=== PATIENT | male | born 1960 | race Caucasian/White ===

== ENCOUNTER → 2016-06-20 | Outpatient (REF) | payer OTHER ==
[2016-06-20 13:48] LABS: TOTAL PROTEIN 7.8 GM/DL (6.4-8.2)
[2016-06-24 10:40] LABS: ALBUMIN % 61.5 % (55.8-66.1)
== END ==
LOC: M LAB REF 13:17
DX: M06.9 Rheumatoid arthritis, unspecified (principal)

== ENCOUNTER → 2016-08-31 | Outpatient (REF) | payer OTHER | LOC: M LAB REF 17:54 | PROVIDERS: ATTEND Physician Assistant | DX: J02.9 Acute pharyngitis, unspecified (principal) ==

== ENCOUNTER 2017-08-14 06:29 | Day surgery (SDC) | payer OTHER ==
[2017-08-14] MEDS: NS 1,000 ML IV (06:45)
[2017-08-14] MEDS ORDERED: PROPOFOL 200 MG/20 ML VIAL As Ordered ×2 (07:32→07:46)
== END 2017-08-14 08:32 | disposition home or self-care (01) ==
LOC: M OPP 06:29
DX: Z09 Encounter for follow-up examination after completed treatment for conditions other than malignant neoplasm (principal); D49.0 Neoplasm of unspecified behavior of digestive system; Z86.010 Personal history of colon polyps; D12.5 Benign neoplasm of sigmoid colon; D12.3 Benign neoplasm of transverse colon; K64.0 First degree hemorrhoids; K57.30 Diverticulosis of large intestine without perforation or abscess without bleeding; M06.9 Rheumatoid arthritis, unspecified; L80 Vitiligo; F17.210 Nicotine dependence, cigarettes, uncomplicated; Z79.899 Other long term (current) drug therapy
CPT/HCPCS: 45385

== ENCOUNTER → 2018-10-10 | Outpatient (CLI) | payer OTHER ==
[~2018-10-10] MED LIST: OREN125I2
--- NOTE | 2018-10-11 07:55 | REP ---
ABDOMINAL SERIES: Supine and erect views of the abdomen demonstrate no free air and no evidence for small bowel obstruction. No dilated small bowel loops are seen. There is scattered air and fecal material throughout the colon. Phleboliths are seen in the pelvis. An accompanying view of the chest demonstrates scattered fibrotic changes which appear stable compared to prior chest radiograph 02/12/2010. No acute infiltrate is seen. The heart is normal in size. There is some tortuosity of the thoracic aorta. The mediastinal silhouette is unchanged. IMPRESSION: No free air or obstruction. Stable chronic changes of the lungs with no acute pulmonary disease. Electronically Signed by Andrés Cantu MD 10/11/2018 04:27 P
== END ==
LOC: M WUC 17:23
PROVIDERS: ATTEND Physician Assistant
DX: R10.84 Generalized abdominal pain (principal)

== ENCOUNTER → 2018-10-11 | Outpatient (CLI) | payer OTHER ==
[2018-10-11 12:55] LABS: BASO # 0.1 10^3/uL (0.0-0.2); BASO % 0.4 % (0.0-1.0); EOS # 0.2 10^3/uL (0.0-0.50); EOS % 1.5 % (0.0-3.0); HEMATOCRIT 36.2 % (42.0-52.0); HEMOGLOBIN 11.8 g/dl (13.5-17.5); LYMPH # 1.5 10^3/uL (1.5-4.5); LYMPH % 12.1 % (24.0-44.0); MEAN CORPUSCULAR HEMOGLOBIN 29.9 pg (27.0-33.0); MEAN CORPUSCULAR HGB CONC 32.6 g/dl (32.0-36.5); MEAN CORPUSCULAR VOLUME 91.6 fl (80.0-96.0); MONO # 1.6 10^3/uL (0.0-0.8); NEUTROPHILS # 8.9 10^3/uL (1.8-7.7); NEUTROPHILS % 72.7 % (36.0-66.0); PLATELET COUNT, AUTOMATED 198 10^3/uL (150-450); RED BLOOD COUNT 3.95 10^6/uL (4.30-6.10); WHITE BLOOD COUNT 12.3 10^3/uL (4.0-10.0)
[2018-10-11 13:22] LABS: ALBUMIN 3.4 GM/DL (3.2-5.2); ALT/SGPT 42 U/L (12-78); AMYLASE 31 U/L (25-115); BILIRUBIN,TOTAL 0.5 MG/DL (0.2-1.0); BLOOD UREA NITROGEN 9 MG/DL (7-18); CALCIUM LEVEL 8.4 MG/DL (8.5-10.1); CARBON DIOXIDE LEVEL 25 MEQ/L (21-32); CHLORIDE LEVEL 109 MEQ/L (98-107); CREATININE FOR GFR 0.87 MG/DL (0.70-1.30); GLOMERULAR FILTRATION RATE > 60.0 (>56); GLUCOSE, FASTING 79 MG/DL (70-100); LIPASE 157 U/L (73-393); POTASSIUM SERUM 4.2 MEQ/L (3.5-5.1); SODIUM LEVEL 140 MEQ/L (136-145)
[2018-10-11 13:31] LABS: ERYTHROCYTE SEDIMENTATION RATE 46 mm/hr (0-20)
== END ==
LOC: M WUC 11:12
PROVIDERS: ATTEND Physician Assistant
DX: R10.84 Generalized abdominal pain (principal)

== ENCOUNTER → 2018-10-12 | Outpatient (CLI) | payer OTHER ==
[~2018-10-12] MED LIST changes: +GASTROGRAFIN SOLUTION 30ML (Q9963) As Ordered ONE; +ISOVUE-370 76% 100ML VIAL (Q9967) As Ordered ONE
--- NOTE | 2018-10-12 17:20 | REP ---
CT ABDOMEN AND PELVIS WITH ORAL AND IV CONTRAST, CT ABDOMEN WITHOUT IV CONTRAST: TECHNIQUE: Axial noncontrast images through the abdomen followed by contrast-enhanced images through the abdomen and pelvis using 100 mL Isovue 370 intravenous contrast material, with coronal and sagittal reformations. In the visualized lung bases are multiple small nodules present, more so on the right than on the left. The largest is in the posterior costophrenic sulcus in the right lower lobe measuring 9 mm in diameter. Recommend CT of the chest to fully evaluate both lungs. No liver mass is seen. The spleen is normal in size with no intrinsic abnormality. No adrenal mass is seen. Pancreas demonstrates no mass. Left kidney is unremarkable. There is a huge lobulated irregular mass which demonstrates heterogenous enhancement involving the medial aspect of the right kidney. This encases the right renal artery. The renal artery is narrowed. There appears to be invasion of the right renal vein and likely of the inferior vena cava at that level. Approximate measurements of the mass are 12.8 x 10.3 x 9.6 cm. Multiple satellite nodules are seen in the perirenal fascia. A nodule posterior to the lower pole of the right kidney measures 2.4 cm in diameter. A satellite nodule just above the right kidney adjacent to the mass measures 1.9 cm in diameter. A nodule posterior to the mid aspect of the right kidney measures 1.7 cm. Streaky infiltrative density is seen on the surrounding fat. Collateral vascular structures are seen extending inferior to the right kidney. I suspect the inferior vena cava is obstructed at this level. There appears to be collateral venous drainage through the left retroperitoneum. There is moderate right hydronephrosis. There is no abdominal aortic aneurysm. There is mild free fluid in the pelvis. I see no free air. No bowel wall thickening is seen. There is no evidence of appendicitis. No pelvis mass is seen. Urinary bladder is grossly unremarkable. There is sigmoid diverticulosis noted. There are small inguinal hernias containing fat. Small sclerotic densities in proximal femurs and pelvic bones likely represent benign bone islands. However there is a large mass involving the left 10th rib consistent with a metastatic lesion measuring 4.1 x 7.4 cm. In addition there is a metastatic lesion in the T2 vertebral body. IMPRESSION: Huge right renal mass, involving the medial aspect of the upper and lower poles of the right kidney encasing the right renal artery and apparently invading the right renal vein. There also appears to be invasion of the inferior vena cava at that level. Multiple satellite nodules in the perirenal fascia. Moderate right hydronephrosis. Multiple pulmonary nodules in the visualized lungs most consistent with metastatic lesions. Recommend CT of the chest to fully evaluate both lungs. Large metastatic lesion posterior left 10th rib. There is also a metastatic lesion involving T12 vertebral body. Small amount of free fluid in the pelvis. Electronically Signed by Andrés Cantu MD 10/13/2018 03:33 P
== END ==
LOC: M RAD 13:54
PROVIDERS: ATTEND Physician Assistant
DX: N28.89 Other specified disorders of kidney and ureter (principal); R91.8 Other nonspecific abnormal finding of lung field; C79.51 Secondary malignant neoplasm of bone
CPT/HCPCS: 74178; Q9963; Q9967

== ENCOUNTER → 2018-11-26 | Outpatient (CLI) | payer OTHER ==
[~2018-11-26] MED LIST changes: +CABO60TA PO; +DECA4TAB PO; -GASTROGRAFIN SOLUTION 30ML (Q9963) As Ordered ONE; +HYDR-4514 PO; +HYDR-4517 PO; -ISOVUE-370 76% 100ML VIAL (Q9967) As Ordered ONE; +OXYC-517 PO; +VICO5TAB17 PO
--- NOTE | 2018-11-26 17:40 | REP ---
MRI lumbar spine without and with IV gadolinium: History: Metastatic renal cell carcinoma with bone metastasis. Comparison is made with CT study from October 12, 2018 showing a metastatic lesion in the T12 vertebral body. Technique: Sagittal and axial T1 and T2-weighted scans are acquired in the usual fashion with and without fat saturation. Sequences include spin echo, turbo spin-echo, and STIR imaging sequences. Gadolinium enhancement dose is 14 ml of intravenous ProHance. MRI findings: There is a large metastatic lesion in the in the T12 vertebral body occupying all of the anterior vertebral body. There is anterior and posterior extra osseous extension. The posterior disease extends into the epidural space encroaching on the thecal sac. The mid AP dimension of the thecal sac at this level is 10 mm. No cord compression is seen but there is mild central canal stenosis. There is mild wedging at the T12 vertebral body with loss of anterior height approximately 25%. There is a fracture line on the left posterior aspect of the vertebral body near the junction with the pedicle. No lumbar bony metastasis is appreciated. The visualized upper sacrum appears intact. There is some reactive marrow edema at the inferior endplate of L5 associated with a degenerated L5-S1 disc. Mild disc bulging is seen at L5-S1. No spinal stenosis or neural foraminal narrowing. There is mild degeneration the L4-5 disc with diffuse disc bulging and mild facet hypertrophy. No lumbar disc protrusion is seen. The tip of the conus medullaris is normal in position and appearance at L1-L2. The known large right renal mass with a perinephric fat extension is noted incidentally. Postcontrast images demonstrate enhancement within the T12 metastasis. The metastasis is more extensive and the wedging is more pronounced than it was at the time of the CT study October 12, 2018. Impression: Large metastasis at the T12 with pathologic partial collapse, 25%. There is retropulsion and epidural extension producing mild central canal stenosis. No cord compression at this point but there is central canal stenosis. T12 metastasis shows some progression in size since October 12, 2018. Electronically Signed by Prakash Garibay MD 11/26/2018 05:46 P
--- NOTE | 2018-11-26 17:42 | REP ---
MRI thoracic spine without contrast: History: Metastatic renal cell carcinoma. Bone metastasis. Comparison CT study October 12, 2018. Technique: Sagittal and axial T1 and T2-weighted scans are acquired in the usual fashion with and without fat saturation. Sequences include spin echo, turbo spin-echo, and STIR imaging sequences. Gadolinium enhancement dose is 14 ml of intravenous ProHance. MRI findings: There is a large metastasis in the T12 vertebral body with retropulsion and central canal stenosis with epidural extension. This was described in detail on the lumbar spine study. Thoracic vertebral body heights are otherwise preserved. There are lesions in the T1 and T3 vertebral bodies, which are felt to be consistent with hemangiomas being T1 hyperintense and T2 hyperintense. There is also evidence of a hemangioma in the left side of the T6 vertebral body. There is suspicious enhancement at the base of the spinous process at T2 consistent with a metastasis. There is a small lesion in the left lamina at T7. There is another small presumed metastatic focus in the left pedicle at T9. This lesion showed decreased T1 signal. There is a large rib lesion on the left posteriorly at what appears to be T9. This is seen on CT. There are multiple pulmonary nodules noted incidentally in the lung little consistent with pulmonary metastases. No thoracic spinal cord compression is appreciated. There is central canal stenosis at T12 as described in the lumbar spine report. Impression: Thoracic multifocal metastatic disease. The largest of these is at T12 where there is central canal stenosis and partial pathologic collapse of the T12 vertebral body. Electronically Signed by Prakash Garibay MD 11/26/2018 05:46 P
== END ==
LOC: M PLARAD 14:50
PROVIDERS: ATTEND Internal Medicine Medical Oncology
DX: C79.89 Secondary malignant neoplasm of other specified sites (principal); R91.8 Other nonspecific abnormal finding of lung field

== ENCOUNTER → 2018-11-30 | Outpatient (CLI) | payer OTHER ==
--- NOTE | 2018-12-01 08:43 | RADONC ---
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 There was evidence of inferior vena cava involvement as well as renal vein and renal artery. The patient is symptomatic with regards to bone metastasis with a precarious lesion at the level of T12. STAGE: IV, [id number]. ICD-10 CODE: 79.51, 78.0 and C64.9. ECOG PERFORMANCE STATUS: 0. HISTORY OF THE PRESENT ILLNESS: The patient is a 58-year-old male who has a history of rheumatoid arthritis. He had been doing quite well until of last year when he noted the fairly sudden onset of back pain. He went to the urgent care center close to him for a prescription of muscle relaxants which helped the situation significantly. However, he noted that in August he again developed pain in his back. This was associated with at least a 20 pounds weight loss over the last year and more recently a fairly rapid [address] scan was obtained of the abdomen and pelvis and a renal mass was seen encasing the right renal artery and invading the right renal artery and right renal vein and possibly invading the inferior vena cava. Some small multiple satellite lesions were seen in the perirenal area measuring up to 1.9 cm. There was also a moderate amount of right hydronephrosis and multiple subcentimeter pulmonary nodules bilaterally. A large lesion was noted in the right 10th rib as well as the T12 area. The patient decided to go to [facility] and he saw Dr. Carlos Bruno and Dr. Hermes Bacon at that institution. It was determined that he was not a surgical candidate for cytoreductive surgery but a biopsy did reveal a renal cell carcinoma. A biopsy was performed on October [address] scan had indeed confirmed a 10.6 x 7.2 cm right renal mass invading the arterial and venous structures and a necrotic mass, possibly an adrenal mass which was necrotic and measured 8.4 x 5.5 cm. Bilateral pulmonary metastatic lesions were noted. A bone scan was performed on 11/10/2018 which confirmed the left 10th rib destructive process as well as metastasis to T12. A testicular ultrasound was negative and an MRI scan of the brain was obtained which was also negative. Dr. Bruno recommended that the patient received a TKI (tyrosine kinase inhibitor) in the form of cabozantinib. The patient has actually started on this medication as well as some pain medications and has seen Dr. Alesha Wilson at this institution who will be orchestrating his medical oncology care. He comes to us today to discuss the possibility of radiation therapy to a precarious lesion at the T12 vertebral body. The lesion is not only causing him a significant amount of pain which he rates at a 7/10 but also shows evidence of invasion into the spinal canal but no definitive evidence of spinal cord compression at this point. There is approximately a 25% loss of height of that vertebral body secondary to bony destruction and he comes to us today to discuss local regional radiotherapy given to the spinal lesion to inez any potential for spinal cord compression in the future. PAST MEDICAL HEALTH: The patient has a long history of rheumatoid arthritis and has been treated on an immunologic modifier. He was on abatacept which was held since October but the patient plans to go back on this medication shortly. He also has a history of GI polyps. PAST SURGICAL HEALTH: Tonsillectomy and a cyst removed, right renal biopsy see HPI. 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 He lives with this . Smoking history - He is a smoker of one half pack per day for many years and he overall has a 25-year pack history of smoking cigarettes. Drinking occasional. FAMILY HISTORY OF CANCER: His father had lung cancer at the age of 44 apparently this was a mesothelioma. His mother had breast cancer at the age of 71 and he has a maternal aunt with a meningioma diagnosed in her 60s. REVIEW OF SYSTEMS: Constitutional: The patient denies any easy bruising or lymphadenopathy. He does have some fatigue and generalized pain from his rheumatoid arthritis. Allergic immunologic: Denies any allergies or adverse reactions. Head: Denies any alopecia. ENT: Denies dysphagia, ear pain, epistaxis, esophagitis, dryness of his mouth, sputum production, sinusitis, stomatitis, altered taste. Breasts: Denies breast masses, nipple discharge, nipple inversion or pain. Cardiovascular: Denies arrhythmias, chest pain, dyspnea, edema, orthopnea, palpitations. Respiratory: Denies coughing, dyspnea, hemoptysis, hiccups, pleuritic pain with the exception of left-sided rib pain and he has overall right flank pain secondary to his tumor. Gastrointestinal: Denies nausea, vomiting, diarrhea, constipation, hematemesis, hematochezia, hemorrhoids, melena, nausea, easy satiety / early satiety or vomiting. Genitourinary: He has pain in the right flank consistent with his tumor but denies dysuria, frequency, hematuria, impotence, incontinence, nocturia, urgency or changes in urine color. Musculoskeletal: He has joint pain, bone pain secondary to arthritis but denies decreased range of motion or muscle weakness. Neurologic: Denies disorientation dizziness, gait issues, headaches, insomnia memory loss, neuropathy, paralysis, seizure, sensory problems or stroke. Psychiatric: Denies delusions, hallucinations, mood swings, depression. Hematology: Denies easy bruising or lymphadenopathy. PHYSICAL EXAMINATION: VITAL SIGNS: Weight 162.14, temperature 98.4, pulse 89, respirations 18, blood pressure systolic 151, diastolic 90, O2 saturation 98%. HEENT: Normocephalic. EOMs intact. PERRLA. Fundi benign. LYMPHATICS: No palpable peripheral lymphadenopathy is appreciated in the cervical, supraclavicular, axillary or inguinal lymph node chains. LUNGS: Clear to auscultation and percussion. HEART: Regular without murmurs. ABDOMEN: Without evidence of hepatomegaly, masses, deep abdominal tenderness. There is a mass noted in his back with some irregularity of the spine in the lower thoracic area as well as some swelling involving the left rib. These are consistent with his known areas of tumor metastasis to bone. EXTREMITIES: Without cyanosis, clubbing or edema. NEUROLOGIC: Examination grossly physiologic and nonfocal. IMPRESSION: Renal cell carcinoma, right, status post biopsy. There was evidence of renal vein and renal artery involvement and as well as possible involvement of the right adrenal and right IVC. Multiple perirenal nodules were noted some as large as 1.9 cm. The patient has evidence of metastatic disease to the bone and to bilateral lungs. Stage T3c,NX,M1 (lung and bone), group stage IV. PLAN OF RADIOTHERAPY: As the patient has what appears to be a very precarious lesion at the level of T12 with 25% loss of vertebral height in that area and involvement of the central canal he is at potential risk for having a spinal cord compression in the future. To inez any potential risk we would recommend a course of local regional radiotherapy directed to the area of the lower thoracic and upper lumbar spine. Total dose of approximately 3000 cGy will be administered at conventional fractionation. Prior to treatment delivery localization will be accomplished upon our CT simulator and treatment portals defined by the use of multiple leaf collimators. The indications as well as alternatives and possible side effects of radiotherapy such as fatigue lowering blood counts, potential nausea, vomiting and bowel irritation have been explained to the patient, he understands and is willing to proceed as outlined. Thank you for referring this fine gentleman to us and allowing us the opportunity of participation in his overall management. cc: MD Hermes Browne MD, FACS Iraida Bailey, MD DARNELL Colunga
== END ==
LOC: M ONCR 08:07
PROVIDERS: ATTEND Radiology Radiation Oncology
DX: C64.1 Malignant neoplasm of right kidney, except renal pelvis (principal)

== ENCOUNTER 2018-12-03 13:50 | Outpatient (RCR) | payer OTHER ==
--- NOTE | 2018-12-01 08:25 | RADONC ---
RADIATION ONCOLOGY SIMULATION NOTE DATE OF SERVICE: 11/30/2018 CHART NUMBER: [id number] SIMULATION NOTE: Mr. Gus Gale with a diagnosis of a renal cell carcinoma (right) with evidence of distant metastasis was simulated today. He had a very precarious metastasis to the T12 vertebral body resulting in a loss of height of 25% and the radiation treatments would be delivered in a hope to prevent progressive disease and prevent a future final spinal cord compression. He was placed in a supine position where upon an immobilization device was constructed. Thereafter, 3 mm images were obtained through the CT scanner from approximately the level of T1-L2. The patient tolerated this both immobilization device construction as well as CT scanning procedure without significant morbidity or discomfort. I was there during the entire time of the simulation. The images, which were captured, will be contoured with both target areas as well as normal structures and an appropriate plan will be delivered to treat the lower thoracic upper lumbar spine areas. The entire process was tolerated by the patient without significant untoward issues. Treatments are anticipated to begin tomorrow. MTDD
--- NOTE | 2018-12-01 10:45 | MEDONC ---
MEDICAL ONCOLOGY FOLLOWUP DATE OF SERVICE: 11/30/2018 DIAGNOSES: 1. Stage IV, A1cSiE2 clear cell renal cell carcinoma, intermediate risk with 10.6 cm right renal mass invading right renal vein, bone lesions involving T12 vertebra, left posterior 11th/12th ribs, diagnosed October 2018, deemed nonoperative candidate for cytoreductive surgery, now on first-line palliative treatment with cabozantinib. 2. Cancer-related pain, focused on midback, currently on hydrocodone 5/325 1-2 tablets q. 6-8 hours. OTHER MEDICAL PROBLEMS OF CLINICAL IMPORT: Rheumatoid arthritis, on immune-modifying agents for many years. Currently on abatacept, held since October 2018, followed at [facility] by Dr. Adamson. INTERVAL HISTORY: Gus is here for followup of spine MRI. His chief concern is pain and getting a refill on pain prescriptions.. I told him to double his hydrocodone as a trial to see if that would help. It did apparently. Over the weekend, he called for a refill and was prescribed oxycodone which he felt was less effective. He is quite focused on pain, not asking questions about his spine MRI. Lumbar MRI 11/26/2018, however, shows a large T12 metastasis with pathologic partial collapse 25% retropulsion and epidural extension producing mild central canal stenosis. No cord compression yet. Progressed versus October 12, 2018. He is already set up to see radiation oncology today. I recommended he start low-dose dexamethasone 4 mg b.i.d. to help with any regional swelling which might be contributing to discopathic pain related to the metastatic site. Gus reverts to the issue of pain control. Reviewing his Internet System for Tracking Over-Prescribing (I-STOP), he has been on some sort of opioid for about 6 weeks at this point. After extensive discussion and his request to go back on some sort of Vicodin-type drug, he would rather avoid the acetaminophen part of it. I recommended hydrocodone/acetaminophen 7.5/325 with a 14-day supply to see how that helped his pain. 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 It is just that cannot sleep because of the pain. I cautioned against using pain medicine as a sleep aid. On the other hand, I understand he needs pain control related to his cancer. I recommended he try the current dose and give me feedback. I also recommended he pay close attention to the difference between mild and moderate and severe pain, using the opioids for moderate to severe and Tylenol or Motrin/NSAIDs for mild pain. IMPRESSION: Oligometastatic clear cell renal cell carcinoma diagnosed October 2018 with large right renal mass perirenal lymphadenopathy and implants, possible renal vein invasion, T12 and left posterior rib 10/11 involvement, significant midthoracic pain, and 25% vertebral collapse of T12 on current MRI. No cord compression but epidural extension now present with mild central canal stenosis. ECOG performance status 1, limited by pain. Currently on cabozantinib begun 11/23/2018, 60 mg daily. PLAN: 1. Dexamethasone 4 mg b.i.d. 2. Radiation oncology referral today for palliative radiation. 3. Hydrocodone/acetaminophen 7.5 mg q. 8 hours p.r.n. severe pain. 14-day supply. Will follow closely for evidence if this is insufficient. At the same time once radiation underway, we should look forward to de-escalating pain medication. 4. The patient is also perseverating on Family Medical Leave Act (FMLA) paperwork, which he brought to our front end java developer, and he will inquire out there today regarding that. TIME STATEMENT: Long discussion today involving more than 50% of the visit which occurred for 40 minutes [id number] with the patient, more than 50% involved in discussing the cabozantinib, MRI findings, radiation for palliation, and pain management as detailed above. Electronically Signed by Alesha Wilson MD 12/01/2018 06:40 P DD: Alesha Wilson MD 11/30/2018 04:29 P DT: aml 12/01/2018 10:18 A CC: MD Hermes Browne MD, FACS Iradia Bailey, PERICO Bruno MD
== END 2018-12-05 ==
LOC: M ONCR 13:50
PROVIDERS: ATTEND Radiology Radiation Oncology
DX: C79.51 Secondary malignant neoplasm of bone (principal); C64.1 Malignant neoplasm of right kidney, except renal pelvis

== ENCOUNTER 2018-12-16 13:54 | Outpatient (RCR) | payer OTHER ==
--- NOTE | 2018-12-07 06:50 | RADONC ---
RADIATION ONCOLOGY PROGRESS NOTE DATE OF SERVICE: 12/06/2018 CHART NUMBER: [id number] Gus Gale with a diagnosis of renal cell carcinoma metastatic to the T12 area is currently receiving local regional palliative radiotherapy to the lower thoracic upper lumbar spine. He has achieved a dose thus far of 1200 cGy of an anticipated 3000 cGy. The patient notes approximately 50% pain palliation and the mass in the posterior thoracic area on the left has reduced significantly in size. He is extremely pleased about the results of his pain palliation and noted that last night he was able to sleep without any pain medication whatsoever and get a full night's sleep. REVIEW OF SYSTEMS: He denies any nausea, vomiting, coughing, sputum production, hemoptysis, diarrhea, dysuria, hematuria or blood per rectum. His energy level has improved and he is able to maintain most of his day-to-day activities, many of which he could not perform when he was suffering from the extreme pain. EXAMINATION FINDINGS: The skin within the irradiated volume shows neither erythema nor desquamation. There is no palpable peripheral lymphadenopathy. The mass in his left rib area has almost completely resolved. IMPRESSION: Excellent response thus far to radiotherapy therapy/systemic therapy. PLAN: Treatments will continue. MTDD
--- NOTE | 2018-12-13 16:30 | RADONC ---
RADIATION ONCOLOGY PROGRESS NOTE DATE: 12/13/2018 CHART NUMBER: [id number] PROGRESS NOTE: Mr. Shahla garcia is presently at a dose of 2100 cGy to his thoracic lumbar spine and is tolerating treatments quite well at this point with no complaints related to his radiation therapy. He is having improvement in his back pain. REVIEW OF SYSTEMS: The patient's review of systems is positive for some continued back pain but is otherwise noncontributory. Denies nausea, vomiting, fevers, chills, night sweats, diplopia, headaches, anxiety or depression, anorexia, weight loss, visual disturbances, chest pain, urinary or bowel difficulties, bone pain, or neurological problems. PHYSICAL EXAMINATION: The patient's skin is in good condition with no evidence of radiation change present. There is no moist or dry desquamation. The remainder of his physical exam remains unchanged. Mr. Gale is tolerating treatments quite well and radiation will continue as scheduled.
[2018-12-16] MEDS ORDERED: MAGICMW SSP (15:22)
--- NOTE | 2018-12-22 07:31 | RADONC ---
RADIATION ONCOLOGY TREATMENT SUMMARY DATE OF SERVICE: 12/16/2018 CHART NUMBER: [id number] DIAGNOSIS: Renal cell carcinoma. STAGE: IV, metastatic. ECOG PERFORMANCE STATUS: 0 FOLLOW-UP NOTE: Mr. Gale is a very pleasant 58-year-old white female with the diagnosis of renal cell carcinoma who presented to us for consideration of palliative radiation therapy to his vertebral bodies. We treated the patient to his spine from the levels of T10-L2 for a total dose of 3000 cGy in 10 fractions of 3000 cGy in 10 fractions of 300 cGy each over 15 elapsed days from 12/01/2018 through 12/16/2018. The patient was treated on a linear accelerator utilizing 3-D conformal technique with anterior and posterior parallel opposed field in a combination of 6 X and 15 X photons. Mr. Gale tolerated his treatments quite well with no difficulties related to his radiation therapy. The patient is scheduled see me again in 1 month for further followup. He will also continue to be followed by his other physicians as well. cc: MD Hermes Browne MD, FACS PERICO Banerjee MD
[2019-01-06] MEDS ORDERED: HYDR-4514 PO (14:24)
[2019-02-15] MEDS ORDERED: NEUR300C PO (09:08)
[2019-05-02] MEDS ORDERED: LORA0.5T5 PO (16:37)
[2019-05-02] MEDS ORDERED: ONDA-83 PO (16:37)
== END 2019-01-05 ==
LOC: M ONCR 13:54
PROVIDERS: ATTEND Radiology Radiation Oncology
DX: C79.51 Secondary malignant neoplasm of bone (principal); C64.1 Malignant neoplasm of right kidney, except renal pelvis

== ENCOUNTER 2018-12-22 12:55 | Emergency (ER) | payer OTHER ==
[~2018-12-22] VITALS: Ht 172.7 cm; Wt 75.0 kg
[~2018-12-22 12:55] MED LIST changes: +MAGICMW SSP
[2018-12-22] MEDS ORDERED: ISOVUE-370 76% 100ML VIAL (Q9967) As Ordered ONE (14:25)
[2018-12-22 14:53] LABS: BASO % 0.4 % (0.0-1.0); EOS # 0.4 10^3/uL (0.0-0.50); EOS % 6.1 % (0.0-3.0); HEMATOCRIT 44.6 % (42.0-52.0); HEMOGLOBIN 14.4 g/dl (13.5-17.5); LYMPH % 14.9 % (24.0-44.0); MEAN CORPUSCULAR HEMOGLOBIN 28.9 pg (27.0-33.0); MEAN CORPUSCULAR HGB CONC 32.3 g/dl (32.0-36.5); MEAN CORPUSCULAR VOLUME 89.6 fl (80.0-96.0); MONO # 0.4 10^3/uL (0.0-0.8); MONO % 6.5 % (0.0-5.0); NEUTROPHILS # 4.8 10^3/uL (1.8-7.7); NEUTROPHILS % 71.8 % (36.0-66.0); PLATELET COUNT, AUTOMATED 136 10^3/uL (150-450); RED BLOOD COUNT 4.98 10^6/uL (4.30-6.10); WHITE BLOOD COUNT 6.7 10^3/uL (4.0-10.0)
[2018-12-22 14:57] LABS: INR 0.97; PROTHROMBIN TIME 12.6 SECONDS (11.8-14.0)
[2018-12-22 14:58] LABS: PARTIAL THROMBOPLASTIN TIME 29.1 SECONDS (25.0-38.4)
[2018-12-22 15:09] LABS: ALBUMIN 3.6 GM/DL (3.2-5.2); ALT/SGPT 72 U/L (12-78); BILIRUBIN,DIRECT 0.1 MG/DL (0.0-0.2); BILIRUBIN,TOTAL 0.2 MG/DL (0.2-1.0); C REACTIVE PROTEIN QUANTITATIV 0.98 MG/DL (0.00-0.30); CK-MB VALUE MASS 1.2 NG/ML (<3.6); CPK CREATINE PHOSPHOKINASE 105 U/L (39-308); LIPASE 264 U/L (73-393); MB/CK RELATIVE INDEX 1.14 (< OR =4); TOTAL PROTEIN 7.3 GM/DL (6.4-8.2); TROPONIN I < 0.02 NG/ML (< 0.10)
--- NOTE | 2018-12-22 15:39 | REP ---
CT ANGIOGRAM CHEST: TECHNIQUE: Axial contrast enhanced images from the thoracic inlet to the upper abdomen using 100 mL Isovue 370 intravenous contrast material with multiplanar reformations. There is no CT evidence of pulmonary embolism. There is no thoracic aortic aneurysm or dissection. Heart is normal in size. There is no mediastinal, hilar, or chest wall lymphadenopathy. There is no pericardial effusion. There is a tiny left pleural effusion. There is a soft tissue mass in the posterior left chest wall with associated destruction of the posterior left 10th rib. There are multiple innumerable small pulmonary nodules present, diffusely bilaterally, the vast majority of which are subcentimeter in diameter. A subpleural nodule in the right lower lobe posterolaterally measures 8 mm, and is the largest nodule identified. There is lytic destruction of T12 vertebral body. Lytic lesion is seen in the posterior left lamina of T2. IMPRESSION: No CT evidence of pulmonary embolism or aortic dissection. Multiple bilateral pulmonary nodules consistent with metastatic lesions. There is extensive lytic destruction of the left 10th rib posteriorly. There is lytic destruction of T12 vertebral body. A lytic lesion is seen in the lamina of T2. Electronically Signed by Andrés Cantu MD 12/25/2018 06:29 P
--- NOTE | 2018-12-22 15:45 | REP ---
CT ABDOMEN AND PELVIS WITH IV CONTRAST: TECHNIQUE: Axial contrast enhanced images from the lung bases to the pubic symphysis using 100 mL Isovue 370 intravenous contrast material with multiplanar reformations. The liver demonstrates two tiny subcentimeter hypodense nodules in the posterior segment of the right lobe inferiorly. I cannot exclude early metastatic lesions. Spleen and left adrenal are unremarkable. Pancreas and left kidney are unremarkable. There is again extensive neoplastic disease involving the medial aspect of the entire right kidney with surrounding satellite nodules. However, the appearance has improved compared to the prior study of 10/12/2018, with decreased solid neoplastic disease. Once again there is encasement of the right renal artery and vein and there appears to be some degree of invasion of the inferior vena cava. I also suspect invasion of the adjacent right adrenal gland. No mass or adenopathy is seen elsewhere in the abdomen or pelvis. No bowel wall thickening is seen. There is no evidence of appendicitis. There is sigmoid diverticulosis without evidence of acute diverticulitis. Urinary bladder is moderately distended with no definite abnormality. There are small inguinal hernias containing fat. There is a lytic lesion in the left iliac bone. IMPRESSION: Improved neoplastic disease involving the right kidney. There is encasement of the right renal artery and vein and once again there appears to be some degree invasion of the inferior vena cava. There also appears to be invasion of the right adrenal gland. Metastatic lytic lesion left iliac bone. Mild sigmoid diverticulosis without evidence of acute diverticulitis. No free air. Very small amount of free fluid. No evidence of appendicitis. Electronically Signed by Andrés Cantu MD 12/25/2018 06:29 P
[2018-12-22] MEDS ORDERED: KETOROLAC 30 MG/ML VIAL (J1885) IV ONE (16:15)
[2018-12-22 17:44] LABS: CK-MB VALUE MASS 1.1 NG/ML (<3.6); CPK CREATINE PHOSPHOKINASE 102 U/L (39-308); MB/CK RELATIVE INDEX 1.08 (< OR =4); TROPONIN I < 0.02 NG/ML (< 0.10)
--- NOTE | 2018-12-22 19:17 | ECGEPIP ---
[facility] - ED Test Date: 2018-12-22 Pat Name: MICHELLE SHAFFER Department: Room: - Gender: Male Pta: : 1960 Requested By: Kim Escalante Order Number: [id number] Reading MD: Kim Escalante Measurements Intervals [place] Rate: 71 P: 35 WV: 157 QRS: QRSD: 94 T: 31 QT: 375 QTc: 408 Interpretive Statements SINUS RHYTHM LOW VOLTAGE LIMB No prior Electronically Signed on 12-22-2018 19:17:04 EDT by Kim Escalante
--- NOTE | 2018-12-22 19:23 | ECGEPIP ---
[facility] - ED Test Date: 2018-12-22 Pat Name: MICHELLE SHAFFER Department: Room: - Gender: Male [employer] Actuary: [facility] : 1960 Requested By: ALEX Rodriguez Order Number: [id number] Reading MD: Kim Escalante Measurements Intervals [place] Rate: 74 P: 30 ND: 158 QRS: QRSD: 97 T: 12 QT: 381 QTc: 423 Interpretive Statements SINUS RHYTHM LOW VOLTAGE LIMB SIMILAR 12/22/18 13:06 Electronically Signed on 12-22-2018 19:23:06 EDT by Kim Escalante
[2018-12-22 19:37] VITALS: BP 154/94
--- NOTE | 2018-12-25 20:15 | ED PDOC ---
Post-Departure Follow-Up letha zamora faxed formal report of ct abd/p for fu Claudia Irvin MD Dec 25, 2018 20:15
[2019-01-06] MEDS ORDERED: HYDR-4514 PO (14:24)
== END 2018-12-22 19:38 | disposition home or self-care (01) ==
LOC: M ED 12:55
DX: R07.9 Chest pain, unspecified (principal); C64.1 Malignant neoplasm of right kidney, except renal pelvis; C79.51 Secondary malignant neoplasm of bone; K57.32 Diverticulitis of large intestine without perforation or abscess without bleeding; Z72.0 Tobacco use
CPT/HCPCS: 71275; 74177; 80047; 80076; 82550; 82553; 83690; 84484; 85025; 85610; 85730; 86140; 93005; 93041; 94760; 96374; 99285; J1885; Q9967

== ENCOUNTER → 2019-01-12 | Outpatient (CLI) | payer OTHER ==
[~2019-01-12] MED LIST changes: +GABA-843 PO; +HYDR-3719 PO; +LORA0.5T5 PO; +NEUR300C PO; +NYST50SS SS; +OMEP20TA17 PO; +ONDA-83 PO; +PATIENT COMMENT; +PROAAER10 INH; +SENN18TA PO
--- NOTE | 2019-01-14 07:16 | RADONC ---
RADIATION ONCOLOGY FOLLOWUP NOTE DATE: 01/12/2019 CHART #: [id number] DIAGNOSIS: Renal cell carcinoma, right kidney with metastasis to bone and to lung. There was evidence of inferior vena cava involvement as well as renal vein and renal artery encasement. The patient has been symptomatic with regards to bone metastasis with a lesion located at T12. STAGE: IV, [id number]. ICD-10 CODE: 79.51, 78.0 and C64.9. ECOG PERFORMANCE STATUS: 1. FOLLOWUP NOTE: Mr. Gus Gale with a diagnosis of renal cell carcinoma metastatic to T12 completed radiotherapy approximately 1 month ago having received a total of 3000 cGy administered in 10 fractions to T12. He returns today for a followup visit. He states that he no longer has the excruciating bone pain which was constant. Currently the bone pain is only intermittent but present when he moves. REVIEW OF SYSTEMS: He denies any nausea, vomiting, coughing, sputum production or hemoptysis. His energy level is diminished, but he is still able to maintain most day-to-day activities without any alteration of his lifestyle. Skin irritation is denied. EXAMINATION FINDINGS: The skin within the irradiated volume shows neither erythema nor desquamation. The paravertebral mass has significantly reduced in size to the point where it is no longer visible. There is no palpable peripheral lymphadenopathy. Lungs are clear. Heart regular without murmurs. Abdomen without evidence of hepatomegaly, masses, deep abdominal tenderness. Extremities without cyanosis, clubbing or edema. Neurologic examination unchanged. IMPRESSION: The patient has had some palliation with regards to his radiotherapy treatment. He no longer has the continuous throbbing pain and the pain is more intermittent. It is worse as the day goes on and somewhat related to activity. The patient has been on anti rheumatoid arthritic medication and wonders if he should go back on this medication. He has an appointment to see Dr. Wilson in approximately 1 week and he will address this issue with her. Otherwise, he seems to be doing relatively well. He does not want wish any additional studies at this time, but will discuss options with Dr. Wilson as to further radiographic studies in the upcoming future. PLAN: We would like to see him on a p.r.n. basis and I have encouraged him to continue his followup visits with his referring physicians as per their directions and instructions.
== END ==
LOC: M ONCR 09:00
PROVIDERS: ATTEND Radiology Radiation Oncology
DX: C64.9 Malignant neoplasm of unspecified kidney, except renal pelvis (principal); C79.51 Secondary malignant neoplasm of bone

== ENCOUNTER → 2019-02-08 | Outpatient (CLI) | payer OTHER ==
[~2019-02-08] MED LIST changes: -GABA-843 PO; +GASTROGRAFIN SOLUTION 30ML (Q9963) As Ordered ONE; -HYDR-3719 PO; +ISOVUE-370 76% 100ML VIAL (Q9967) As Ordered ONE; -LORA0.5T5 PO; -NYST50SS SS; -OMEP20TA17 PO; -ONDA-83 PO; -PATIENT COMMENT; -PROAAER10 INH; -SENN18TA PO
--- NOTE | 2019-02-08 16:54 | REP ---
Clinical: Stage IV renal carcinoma. Restaging. Technique: Axial contrast enhanced images from the thoracic inlet to the upper abdomen with coronal and sagittal re-formations using 100 ml Isovue 370 intravenous contrast material. Comparison: 12/22/2018. Findings: Few scattered bilateral noncalcified pulmonary nodules consistent with metastatic disease measuring up to approximately 9.5 mm diameter are relatively stable compared to prior examination. Few mediastinal lymph nodes are also identified measuring up to 10 mm and remain stable. No pulmonary parenchymal consolidation or effusion. No pneumothorax. Tracheobronchial tree is patent. Thoracic aorta, pulmonary vasculature and heart/pericardium appear normal. Musculoskeletal structures demonstrate a lytic destructive changes of the posterior left tenth rib, pathologic compression fracture of T12 and, lytic lesion involving the T9 vertebral body and T2 lamina. Impression: Pulmonary skeletal metastases as described above and relatively similar to prior examination without significant increase. Electronically Signed by Travis Guardado MD 02/08/2019 04:46 P
--- NOTE | 2019-02-08 17:08 | REP ---
Clinical: Stage IV renal cell carcinoma. Technique: Axial contrast enhanced images from the lung bases to the pubic symphysis using oral (per protocol) and 100 ml Isovue 370 intravenous contrast material with coronal and sagittal re-formations as well as delayed images of the abdomen. Comparison: 12/22/2018 Findings: Extensive neoplastic disease involving the right kidney with significant extension into the surrounding perinephric and retroperitoneal space including involvement of the adrenal gland as well as neoplastic involvement of the main renal artery and vein and adjacent inferior vena cava. Findings are difficult to definitively quantify although they appear relatively similar to prior examination. Liver, spleen, pancreas, gallbladder, left adrenal gland and left kidney appear normal. No evidence for bowel obstruction or acute inflammatory process. Sigmoid diverticula noted without acute diverticulitis. Evaluation of the pelvis demonstrates normal bladder and stable moderately enlarged prostate gland. No ascites. No free air. The abdominal aorta is without aneurysm or dissection. No obvious significant adenopathy is appreciated. Fat containing left inguinal hernia noted. Musculoskeletal structures demonstrate a 2 cm lytic lesion in the low left iliac bone which remains stable. Impression: 1. Extensive neoplastic disease involving the right kidney with suspected involvement of the renal artery, renal vein, and adjacent inferior vena cava. These findings are relatively unchanged when compared to 12/22/2018. 2. No ascites. No obvious adenopathy. 3. Stable lytic lesion in the left iliac bone. Electronically Signed by Travis Guardado MD 02/08/2019 05:00 P
== END ==
LOC: M RAD 14:25
PROVIDERS: ATTEND Internal Medicine Medical Oncology
DX: C64.9 Malignant neoplasm of unspecified kidney, except renal pelvis (principal)

== ENCOUNTER → 2019-02-08 | Outpatient (CLI) | payer OTHER ==
[~2019-02-08] MED LIST changes: -GASTROGRAFIN SOLUTION 30ML (Q9963) As Ordered ONE; -ISOVUE-370 76% 100ML VIAL (Q9967) As Ordered ONE
--- NOTE | 2019-02-08 15:32 | REP ---
PET/CT: History: Stage IV renal cell carcinoma. Status post chemotherapy and palliative radiation therapy. Comparisons: Comparison CT chest, abdomen, and pelvis December 22, 2018. TECHNIQUE: 55 minutes following the intravenous injection of a 8.23 mCi dose of F-18 FDG, three-dimensional PET scintigraphy is acquired from the skull base to the proximal thighs. Triplanar noncontrast CT scanning is acquired through the same anatomic range for attenuation correction, and image registration with scan parameters optimized to minimize radiation exposure to the patient. PET scintigraphy and CT datasets were fused and displayed on a workstation with multiplanar and projection display capability. PET/CT Findings: Head and neck soft tissues are unremarkable. The recently noted lytic lesion in the lamina at the T2 vertebral body level shows minimally hypermetabolic uptake with maximum SUV of 2.27. There is a left lateral 6th rib hypermetabolic lesion with maximum standard uptake value of 6.93. The large expansile lesion in the left posterior rib cage has decreased in overall size. Hypermetabolic uptake persists here however maximum standard uptake value 18.70. There is a focus of hypermetabolic uptake in the rib just above this, 2.53. Hypermetabolic uptake is seen in a partially collapsed T12 vertebral body. Maximum standard uptake value here is 7.21. There is a small metastatic focus in the left iliac bone with maximum SUV 4.55. There is heterogeneous enlargement and hypermetabolic uptake throughout the right kidney. A perinephric focus of hypermetabolic uptake is seen and a 1 cm nodule on the right maximum SUV 4.11. There is a hypermetabolic right upper lobe lung nodule, 3.97. There is a left upper lobe hypermetabolic nodule with maximum SUV value 4.75. Impression: Hypermetabolic metastatic disease is noted in the skeletal system, the left upper lobe and right upper lobe of the lung, and perinephric fat. Electronically Signed by Prakash Garibay MD 02/08/2019 03:33 P
== END ==
LOC: M PLARAD 11:56
PROVIDERS: ATTEND Internal Medicine Medical Oncology
DX: C64.9 Malignant neoplasm of unspecified kidney, except renal pelvis (principal)

== ENCOUNTER → 2019-02-25 | Outpatient (CLI) | payer OTHER ==
--- NOTE | 2019-02-28 14:15 | RADONC ---
RADIATION ONCOLOGY CONSULTATION NOTE DATE OF SERVICE: 02/25/2019 CHART NUMBER: [id number] DIAGNOSIS Renal cell carcinoma. STAGE: Stage IV, [id number] ECOG PERFORMANCE STATUS: 0. CONSULTATION NOTE: Mr. Gale is a very pleasant 58-year-old white male with the diagnosis of metastatic renal cell carcinoma who is well-known to our department and recently completed a course of palliative radiation therapy to the T10-L2 vertebral bodies for a dose of 3000 cGy delivered in 10 fractions of 300 cGy each from 12/01/2018 through 12/16/2018. Since that time, the patient has had a repeat CT scan of his pelvis done on 02/08/2019. This was compared to previous CT scans of 10/12/2018 and 12/22/2018. This scan showed a left iliac bone lesion now measuring 2.2 cm. Previously on 12/22/2018 it was 1.8 cm and prior to that was 0.9 cm on 10/12/2018. The patient is complaining of some pain in that area and is now presenting for consideration of palliative radiation therapy. PAST MEDICAL HISTORY: The patient's past medical history is positive for rheumatoid arthritis. He has a history of GI polyps as well. SOCIAL HISTORY: The patient smoked half-a-pack of cigarettes per day for many years. He drinks alcohol socially. ALLERGIES: The patient has NO KNOWN DRUG ALLERGIES. FAMILY HISTORY: The patient's family history is negative for kidney cancer or other malignancies. REVIEW OF SYSTEMS: The patient's review of systems is positive for some weight loss and decreased energy. He reports that he lost 20 pounds over 3 months. He is also positive for some pain over his left iliac bone area. He continues to have some back pain in the lower thoracic region for which he is scheduled to undergo surgery. The patient denies nausea, vomiting, fevers, chills, night sweats, diplopia, headaches, anxiety, depression, anorexia, visual disturbances, chest pain, urinary problems or neurological problems. PHYSICAL EXAMINATION: The patient is a well-developed, well-nourished male in no acute distress. HEENT exam is normocephalic, atraumatic. Extraocular movements are intact. There is no palpable cervical, supraclavicular, infraclavicular, axillary, or inguinal lymphadenopathy present. Lungs are clear to auscultation and percussion. Heart has a regular rate and rhythm. Abdomen is benign with no hepatosplenomegaly, masses, or tenderness. Skeletal examination reveals no tenderness to pressure or percussion of the bony skeleton. Extremities reveal no clubbing, cyanosis, or edema. Neurologic exam is grossly intact, as is the remainder of the physical examination. ASSESSMENT: I believe the patient is a candidate for external beam radiation therapy and I have so informed him. I have discussed with the patient in detail the potential benefits as well as possible acute and chronic sequelae of external beam radiation therapy. We have discussed logistics of treatment planning, simulation and subsequent fractionated daily radiation treatments. I have scheduled the patient for the next available simulation slot and radiation treatments will begin subsequently. Thank you for allowing us to participate in the care of this very pleasant gentleman. If I could be of any further assistance or provide you with any information, please feel free to contact me at anytime. As always, warm regards, Andrés Tran MD cc: MD Iraida Hines ANP Martin H. Voss, MD
== END ==
LOC: M ONCR 08:00
PROVIDERS: ATTEND Radiology Radiation Oncology
DX: C64.9 Malignant neoplasm of unspecified kidney, except renal pelvis (principal); C79.51 Secondary malignant neoplasm of bone

== ENCOUNTER → 2019-03-07 | Outpatient (RCR) | payer OTHER ==
--- NOTE | 2019-03-03 11:34 | RADONC ---
RADIATION ONCOLOGY SIMULATION NOTE DATE: 03/02/2019 CHART #: [id number] Mr. Gale was taken to the CT scan for CT simulation of his left iliac field. CT was accomplished without difficulty or discomfort. Radiation treatment planning is underway and radiation treatments will begin subsequently. I was physically present throughout the course of CT simulation. An immobilization device was created and will be used throughout the course of treatment.
--- NOTE | 2019-03-08 08:25 | RADONC ---
RADIATION ONCOLOGY PROGRESS NOTE DATE: 03/07/2019 CHART #: [id number] Mr. Gale underwent his first fraction of radiation today to his left ilium for a dose of 300 cGy. It was tolerated without difficulty or discomfort. REVIEW OF SYSTEMS: The patient's review of systems is unchanged. PHYSICAL EXAMINATION: The patient's physical exam is also unchanged at this time. Clearly, there was no evidence of radiation change since this is his first fraction of treatment. The patient tolerated his initial treatment quite well with no difficulties. He is scheduled for treatment to continue tomorrow.
== END ==
LOC: M ONCR 03-02 10:54
PROVIDERS: ATTEND Radiology Radiation Oncology
DX: C79.51 Secondary malignant neoplasm of bone (principal)

== ENCOUNTER 2019-03-18 14:55 | Outpatient (RCR) | payer OTHER ==
--- NOTE | 2019-03-15 10:01 | RADONC ---
RADIATION ONCOLOGY PROGRESS NOTE DATE: 03/14/2019 CHART NUMBER: [id number] Mr. Gale is presently at a dose of 1800 cGy to his left ileum and is tolerating treatments quite well at this point with no complaints related to his radiation therapy. He is having no skin discomfort or other problems. He does report that his bone pain has improved somewhat. The patient's review of systems is otherwise noncontributory. He denies nausea, vomiting, fevers, chills, night sweats, diplopia, headaches, anxiety or depression, anorexia, weight loss, visual disturbances, chest pain, urinary or bowel difficulties, bone pain, or neurological problems. PHYSICAL EXAMINATION: The patient's skin is in good condition with no evidence of radiation change present. There is no moist or dry desquamation. The remainder of his physical exam remains unchanged. Mr. Gale is tolerating treatments quite well and radiation will continue as scheduled. He apparently has already responding to treatment which is a good sign.
--- NOTE | 2019-03-21 07:58 | RADONC ---
RADIATION ONCOLOGY TREATMENT SUMMARY: DATE: 03/18/2019 CHART NUMBER: [id number] DIAGNOSIS: Renal cell renal cell carcinoma. STAGE: IV, T3a, Nx, M1 ECOG PERFORMANCE STATUS: 0 Mr. Gale is a very pleasant 58-year-old white male with the diagnosis of metastatic renal cell carcinoma who presented to our department for consideration of external beam radiation therapy to his left ileum. We treated the patient to the left ileum for a total dose of 3000 cGy delivered in 10 fractions of 300 cGy each over 11 elapsed days from 03/07/2019 to 03/18/2019. The patient's ileum was treated on a linear accelerator utilizing a 15 MV photon beam via 3D conformal technique. Mr. Gale tolerated his treatments quite well and was able complete therapy as prescribed without interruption. I have scheduled the patient to see me again in 1 month for further followup. He will also continue to be managed and followed by his other physicians as well. cc: MD Iraida Hines ANP Martin H. Voss, MD
== END 2019-04-07 ==
LOC: M ONCR 14:55
PROVIDERS: ATTEND Radiology Radiation Oncology
DX: C79.51 Secondary malignant neoplasm of bone (principal)

== ENCOUNTER → 2019-04-27 | Outpatient (CLI) | payer OTHER ==
--- NOTE | 2019-04-29 13:11 | RADONC ---
RADIATION ONCOLOGY FOLLOWUP NOTE DATE: 04/27/2019 CHART #: [id number] DIAGNOSIS: Renal cell carcinoma. STAGE: IV, [id number]. ECOG PERFORMANCE STATUS: 0. FOLLOWUP NOTE Mr. Gale is a very pleasant 58-year-old white male with the diagnosis of metastatic renal cell carcinoma who is presenting to us today for routine followup visit 1 month post completion of palliative radiation therapy to his left ilium. The patient presents today reporting that generally he is doing well with a marked improvement in his ilium pain. Indeed he reports he does not even think about that bone and therefore believes he responded nicely. Unfortunately, he continues to have back pain and is scheduled for surgery to his involved T12 vertebral body in three weeks' time. REVIEW OF SYSTEMS: The patient's review of systems is positive for some residual back pain but is otherwise noncontributory. Denies nausea, vomiting, fevers, chills, night sweats, diplopia, headaches, anxiety or depression, anorexia, weight loss, visual disturbances, chest pain, urinary or bowel difficulties, bone pain, or neurological problems. PHYSICAL EXAMINATION: The patient is a well-developed, well-nourished male in no acute distress. HEENT exam is normocephalic, atraumatic. Extraocular movements are intact. There is no palpable cervical, supraclavicular, infraclavicular, axillary, or inguinal lymphadenopathy present. Lungs are clear to auscultation and percussion. Heart has a regular rate and rhythm. Abdomen is benign with no hepatosplenomegaly, masses, or tenderness. Rectal examination reveals a normal anal sphincter tone. Skeletal examination reveals no tenderness to pressure or percussion of the bony skeleton. Extremities reveal no clubbing, cyanosis, or edema. Neurologic exam is grossly intact, as is the remainder of the physical examination. ASSESSMENT: The patient is clinically doing well with regards to his iliac bone at this point. He is scheduled for surgery in 2 weeks and is continuing to be managed by his medical oncologist, Dr. Wilson, who is seeing him every month. In light of his close management and follow up with his medical oncologist, I am discharging this patient from our followup except on a p.r.n. basis. The patient has my cell phone number and office number and has been instructed to contact me at anytime if I could be of any assistance whatsoever or provide him with any information. cc: MD Iraida Hines ANP Martin H. Voss, MD
== END ==
LOC: M ONCR 14:59
PROVIDERS: ATTEND Radiology Radiation Oncology
DX: Z08 Encounter for follow-up examination after completed treatment for malignant neoplasm (principal); M54.9 Dorsalgia, unspecified

== ENCOUNTER 2019-05-02 13:45 | Inpatient (IN) | payer OTHER ==
[2019-05-02] VITALS (32 sets, daily range): BP systolic 110–158; BP diastolic 74–100; O2SAT 94–96
[~2019-05-02] VITALS: Ht 170.2 cm; Wt 67.1 kg
[~2019-05-02 13:45] MED LIST changes: -HYDR-3719 PO; -LORA0.5T11 PO; -OMEP20TA17 PO; -ONDA4TAB5 PO; -PATIENT COMMENT; -PROAAER10 INH; -SENN18TA PO
--- NOTE | 2019-05-02 14:41 | REP ---
Clinical: Cough and dyspnea. Technique: PA and lateral. Comparison: 05/02/2019. Findings: There is complete opacification of the right hemithorax with mild contralateral shift to the mediastinum suggested. Aerated left hemithorax is relatively clear. Skeletal structures are intact. Impression: Complete opacification of the right hemithorax likely reflecting underlying effusion. Electronically Signed by Travis Guardado MD 05/02/2019 02:32 P
[2019-05-02 15:11] LABS: VENOUS HCO3 23.7 MEQ/L (23.0-27.0); VENOUS O2 SATURATION 85.6 % (60.0-80.0); VENOUS PARTIAL PRESSURE CO2 48.8 mmHg (38.0-50.0); VENOUS PARTIAL PRESSURE O2 53.8 mmHg (30.0-50.0); VENOUS PH 7.305 UNITS (7.330-7.430); VENOUS STANDARD HCO3 21.7 MEQ/L; VENOUS TOTAL CO2 25.2 MEQ/L (24.0-28.0)
[2019-05-02] MEDS ORDERED: ISOVUE-370 76% 100ML VIAL (Q9967) As Ordered ONE (15:20)
[2019-05-02 15:24] LABS: BASO % 0.3 % (0.0-1.0); EOS # 0.1 10^3/uL (0.0-0.5); EOS % 0.8 % (0.0-3.0); HEMATOCRIT 42.5 % (42.0-52.0); HEMOGLOBIN 13.7 g/dl (13.5-17.5); LYMPH # 0.7 10^3/uL (1.5-5.0); LYMPH % 7.1 % (24.0-44.0); MEAN CORPUSCULAR HEMOGLOBIN 34.5 pg (27.0-33.0); MEAN CORPUSCULAR HGB CONC 32.2 g/dl (32.0-36.5); MEAN CORPUSCULAR VOLUME 107.1 fl (80.0-96.0); MONO # 1.6 10^3/uL (0.0-0.8); MONO % 15.7 % (0.0-5.0); NEUTROPHILS # 7.5 10^3/uL (1.5-8.5); NEUTROPHILS % 75.8 % (36.0-66.0); PLATELET COUNT, AUTOMATED 217 10^3/uL (150-450); RED BLOOD COUNT 3.97 10^6/uL (4.30-6.10); WHITE BLOOD COUNT 9.9 10^3/uL (4.0-10.0)
[2019-05-02 15:26] LABS: ABG BASE EXCESS -3.2 (-2.0-2.0); ABG HCO3 20.4 MEQ/L (22.0-26.0); ABG O2 SATURATION 95.5 % (95.0-99.0); ABG PARTIAL PRESSURE CO2 32.3 mmHg (35.0-45.0); ABG PARTIAL PRESSURE O2 71.8 mmHg (75.0-100.0); ABG STANDARD HCO3 21.8 MEQ/L (22.0-26.0); ABG TOTAL CO2 21.4 MEQ/L (22.0-29.0); ABG pH (ARTERIAL) 7.418 UNITS (7.350-7.450)
[2019-05-02 15:35] LABS: INR 1.04; PROTHROMBIN TIME 13.3 SECONDS (11.8-14.0)
[2019-05-02] MEDS: NS 1,000 ML IV SCH ×2 (15:43→18:00)
[2019-05-02 15:53] LABS: D-DIMER QUANT > 4000.0 ng/ml (<500)
[2019-05-02 15:54] LABS: ALBUMIN 3.3 GM/DL (3.2-5.2); ALT/SGPT 26 U/L (12-78); BILIRUBIN,DIRECT 0.1 MG/DL (0.0-0.2); BILIRUBIN,TOTAL 0.6 MG/DL (0.2-1.0); BLOOD UREA NITROGEN 25 MG/DL (7-18); CALCIUM LEVEL 7.9 MG/DL (8.5-10.1); CARBON DIOXIDE LEVEL 27 MEQ/L (21-32); CHLORIDE LEVEL 102 MEQ/L (98-107); CK-MB VALUE MASS < 1.0 NG/ML (<3.6); CPK CREATINE PHOSPHOKINASE 84 U/L (39-308); CREATININE FOR GFR 1.36 MG/DL (0.70-1.30); GLOMERULAR FILTRATION RATE 57.1 (>56); GLUCOSE, FASTING 109 MG/DL (70-100); MB/CK RELATIVE INDEX 1.19 (< OR =4); NT-PRO BNP 758 PG/ML (<125); POTASSIUM SERUM 5.2 MEQ/L (3.5-5.1); SODIUM LEVEL 135 MEQ/L (136-145); THYROXINE (T4) 10.8 UG/DL (4.5-12.0); TROPONIN I < 0.02 NG/ML (< 0.10)
--- NOTE | 2019-05-02 16:08 | REP ---
Clinical: Shortness of breath. Technique: Axial contrast enhanced images from the thoracic inlet to the upper abdomen using pulmonary embolus technique with multiplanar re-formations. Comparison: 02/08/2019. Findings: A large effusion completely opacifies the right hemithorax with complete collapse to the right upper lobe, right middle lobe, and right lower lobe. A small left pleural effusion is also noted. There is no evidence for pulmonary embolus. The aerated left hemithorax demonstrates multiple scattered nodules consistent with metastatic disease as well as left upper lobe mass measuring 3 cm maximal diameter. There is a heterogeneous enhancing mass likely arising from and arranged through the posterior aspect of the left tenth rib measuring roughly 6.5 x 2.3 cm transverse / AP diameter and 5.6 cm in craniocaudal length. Pathologic compression fracture through the T12 vertebral body is also appreciated. Smaller skeletal metastatic lesions involving multiple ribs are also suspected. The right kidney is significantly enlarged and heterogeneous with perinephric stranding and multiple adjacent soft tissue nodular lesions likely representing primary site of malignancy. Impression: 1. Large right pleural effusion completely filling the right hemithorax with complete collapse to the right upper lobe, right middle lobe, and right lower lobe represent new finding compared to prior examination. 2. Enlarging metastatic lesions within the aerated left hemithorax along with small left pleural effusion significantly increased from prior examination. 3. Enlarging expansile mass involving the posterior aspect of the left tenth rib severely increased in size from prior examination. Electronically Signed by Travis Guardado MD 05/02/2019 04:00 P
[2019-05-02] MEDS ORDERED: PATIENT COMMENT (16:35)
[2019-05-02] MEDS ORDERED: HYDR-3719 PO (16:35)
[2019-05-02] MEDS ORDERED: LORA0.5T11 PO (16:37)
[2019-05-02] MEDS ORDERED: OMEP20TA17 PO (16:37)
[2019-05-02] MEDS ORDERED: ONDA4TAB5 PO (16:37)
[2019-05-02] MEDS ORDERED: PROAAER10 INH (16:37)
[2019-05-02] MEDS ORDERED: SENN18TA PO (16:37)
[2019-05-02] MEDS ORDERED: KCL 20MEQ IN D5/NS 1000ML 1,000 ML IV SCH (17:27)
[2019-05-02] MEDS ORDERED: BISACODYL 10 MG SUPP PR PRN (17:30)
[2019-05-02] MEDS ORDERED: LEVALBUTEROL 1.25 MG/0.5 ML CONCENTRATE NEB NEB PRN (17:30)
[2019-05-02] MEDS ORDERED: ACETAMINOPHEN TAB 650MG DOSE (2X325MG) PO PRN (17:30)
[2019-05-02] MEDS ORDERED: ONDANSETRON 4 MG TAB (S0181) PO PRN (17:30)
[2019-05-02] MEDS ORDERED: LORazepam 0.5 MG TAB PO PRN (17:30)
[2019-05-02] MEDS ORDERED: PERCOCET 5MG/325MG TAB PO PRN (17:30)
[2019-05-02] MEDS ORDERED: MIDAZOLAM INJ 2 MG/2 ML VIAL (J2250) As Ordered ONE ×2 (17:44→17:45)
[2019-05-02] MEDS ORDERED: flumazeniL 0.5 MG/5 ML VIAL As Ordered ONE (17:44)
[2019-05-02] MEDS ORDERED: LIDOCAINE 1% MDV 20ML VIAL As Ordered ONE (17:45)
--- NOTE | 2019-05-02 17:52 | HPEPDOC ---
[facility] Medical History & Physical Date of Admission May 02, 2019 Date of Service: May 02, 2019 Attending Physician: HILARIO ROBLES MD History and Physical CHIEF COMPLAINT: Shortness of breath HISTORY OF PRESENT ILLNESS: 58-year-old male with past medical history of metastatic renal cell carcinoma diagnosed in October 2018, status post chemotherapy and radiation, presents with worsening shortness of breath for the past week. Patient reports is at rest, along with worsening dyspnea on exertion for the past week, progressing, reports associated cough productive of small amounts of clear sputum. He also reports difficulty with swallowing solids during this time. He went to his primary care physician for 5 days ago for these symptoms, treated with nebulizers and sent home. Due to progressive dyspnea he went back to his PCP earlier today, had a chest x-ray which showed complete white out of the right lung and he was asked to come to the emergency department. In the ED is found to have a large right pleural effusion with compressive atelectasis of the right lung and shift of the mediastinum into the left hemithorax. Thoracic surgery has been consulted, evaluation pending. Patient currently denies any chest pain, nausea, vomiting, abdominal pain or diarrhea. He seems to be comfortable on nasal cannula. 10 point review of system is negative except for above PAST MEDICAL HISTORY: 1. Metastatic renal cell carcinoma. PAST SURGICAL HISTORY: 1. None. SOCIAL HISTORY: 1+ pack per day for over 30 years, currently smokes on and off. Social alcohol use. Denies drug use FAMILY HISTORY: Father with lung cancer ALLERGIES: Please see below. HOME MEDICATIONS: Please see below. PHYSICAL EXAMINATION: VITAL SIGNS: Please see below. GENERAL: No distress HEENT: Normocephalic, atraumatic, moist mucous membranes NECK: Supple CARDIOVASCULAR EXAMINATION: S1, S2, no murmurs RESPIRATORY EXAMINATION: Severely diminished and distant breath sounds on the right side, absent in the base, no wheezing, clear on the left side ABDOMINAL EXAMINATION: Soft, nontender, nondistended, positive bowel sounds EXTREMITIES: Range of motion intact SKIN: No rash NEUROLOGICAL EXAMINATION: Alert and oriented 3, no focal deficits PSYCHIATRIC EXAMINATION: Calm and cooperative LABORATORY DATA: See below. IMAGING: CT chest with large pleural effusion on the right side with compressive atelectasis of the right lung MICROBIOLOGY: Please see below. ASSESSMENT: 58-year-old male with past mental history of metastatic renal cell carcinoma, presents with large right-sided pleural effusion and compressive ate lectasis with known history of lung metastases. PLAN: 1. Large right pleural effusion. Likely malignant effusion from metastatic renal cell carcinoma, initial episode, thoracic surgery consulted for drainage. We'll send pleural fluid for studies, including cytology. Patient comfortable on nasal cannula, continue IV fluids. 2. Renal cell carcinoma. Metastatic, status post radiation, undergoing chemotherapy. Continue pain control and bowel regimen DVT prophylaxis: Heparin subcutaneous GI prophylaxis: Protonix Vital Signs Vital Signs Date Time Temp Pulse Resp B/P (MAP) Pulse Ox O2 Delivery O2 Flow Rate FiO2 05/02/19 15:44 Nasal Cannula 3.0 05/02/19 15:44 05/02/19 13:45 96.0 111 20 93 Laboratory Data Labs 24H Laboratory Tests 2 05/02/19 14:58: POC Glucose (Misc Panel) 117H, POC Sodium (Misc Panel) 133L, POC Potassium (Misc Panel) 5.7H, POC Chloride (Misc Panel) 100, POC Total CO2 (Misc Panel) 28.0H, POC Blood Urea Nitrogen (Misc Panel 38H, POC Ionized Calcium (Misc Panel) 3.9L, POC Creatinine (Misc Panel) 1.4H, POC Hematocrit (Misc Panel) 41.0 05/02/19 14:59: Immature Granulocyte % (Auto) 0.3, Neutrophils (%) (Auto) 75.8H, Lymphocytes (%) (Auto) 7.1L, Monocytes (%) (Auto) 15.7H, Eosinophils (%) (Auto) 0.8, Basophils ( %) (Auto) 0.3, Neutrophils # (Auto) 7.5, Lymphocytes # (Auto) 0.7L, Monocytes # (Auto) 1.6H, Eosinophils # (Auto) 0.1, Basophils # (Auto) 0.0, Nucleated Red Blood Cells % (auto) 0.0, Prothrombin Time 13.3, Prothromb Time International Ratio 1.04, D-Dimer, Quantitative > 4000.0H, Blood Gas Bicarbonate Standard 21.7, Arterial Blood pH 7.418, Arterial Blood Partial Pressure CO2 32.3L, Arterial Blood Partial Pressure O2 71.8L, Arterial Blood Total CO2 21.4L, Arterial Blood HCO3 20.4L, Arterial Blood Base Excess -3.2L, Arterial Blood Oxygen Saturation 95.5, Venous Blood pH 7.305L, Venous Blood Partial Pressure CO2 48.8, Venous Blood Partial Pressure O2 53.8H, Venous Blood Total Carbon Dioxide 25.2, Venous Blood HCO3 23.7, Venous Blood Oxygen Saturation 85.6H, Venous Blood Base Excess -3.0L, Anion Gap 6L, Glomerular Filtration Rate 57.1, Lactic Acid Level 2.9*H, Calcium Level 7.9L, Total Bilirubin 0.6, Direct Bilirubin 0.1, Aspartate Amino Transf (AST/SGOT) 28, Alanine Aminotransferase (ALT/SGPT) 26, Alkaline Phosphatase 108, Total Creatine Kinase 84, Creatine Kinase MB < 1.0, Creatine Kinase MB Relative Index 1.19, Troponin I < 0.02, OT-Gxy-U-Type Natriuretic Peptide 758H, Total Protein 7.0, Albumin 3.3, Albumin/Globulin Ratio 0.89L, Thyroid Stimulating Hormone (TSH) 4.200H, Thyroxine (T4) 10.8 CBC/BMP Laboratory Tests 05/02/19 14:59 Microbiology Microbiology 05/02/19 Blood Culture, Received Pending Home Medications Scheduled Cabozantinib S-Malate (Cabometyx) 60 Mg Tablet, 1 TAB PO DAILY Gabapentin (Neurontin) 300 Mg Capsule, 300 MG PO QHS Omeprazole (Omeprazole) 20 Mg Tablet.dr, 20 MG PO DAILY Senna (Senna Lax) 8.6 Mg Tablet, 1 TAB PO TID Scheduled PRN Albuterol Sulfate (Proair Hfa) 8.5 Gm Hfa.aer.ad, 2 PUFFS INH QID PRN for SHORTNESS OF BREATH Hydrocodone/Acetaminophen (Hydrocodone-Acetamin 10-325 mg) 1 Each Tablet, 1 TAB PO QID PRN for PAIN Lorazepam (Lorazepam) 0.5 Mg Tablet, 0.5 MG PO DAILY PRN for ANXIETY Ondansetron HCl (Ondansetron HCl) 4 Mg Tablet, 4 MG PO Q6H PRN for NAUSEA OR VOMITING Miscellaneous Medications [Patient Comment] PATIENT STOPPED TAKING CABOMETYX ON 04/19/19 DUE TO SURGERY IN MAY Allergies Coded Allergies: No Known Drug Allergies (Verified Allergy, Unknown, 11/22/18) A-FIB/CHADSVASC A-FIB History Current/History of A-Fib/PAF?: No HILARIO ROBLES MD May 02, 2019 17:52
--- NOTE | 2019-05-02 19:58 | ECGEPIP ---
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
[2019-05-02] MEDS ORDERED: KETOROLAC 30 MG/ML VIAL (J1885) IV SCH (20:00)
[2019-05-02] MEDS: LEVALBUTEROL 1.25 MG/0.5 ML CONCENTRATE NEB NEB SCH (20:00)
--- NOTE | 2019-05-02 20:03 | RO ---
DATE OF PROCEDURE: 05/02/2019 PREPROCEDURE DIAGNOSIS: Tension hydrothorax right side. POSTPROCEDURE DIAGNOSIS: Tension hydrothorax right side. PROCEDURE: Insertion of tunneled right PleurX catheter. SURGEON: Dr. Mike Wiley CONSUMER EDUCATOR: ANESTHESIA: DESCRIPTION OF PROCEDURE: Under satisfactory moderate sedation achieved with 5 mg of Versed, the patient was prepped and draped in the usual sterile fashion. The entry and exit sites were marked and infiltrated with 1% lidocaine along with a track that connected the two sites. The exploring needle was placed into the chest and a guidewire was placed. Two incisions were made at the entry and the exit sites and a tunnel was created between the exit and the entry site. PleurX catheter was then pulled through the tunnel. A peel-away introducer was placed, and the PleurX catheter was placed into the peel-away introducer and positioned appropriately. The entry wound was closed with a running #4-0 Monocryl subcuticular suture with Dermabond, and the catheter was secured to the abdominal wall by use of a #2-0 silk suture. The patient was then drained of 2 liters. I suspect there is more like 3 to 3-1/2 liters in the chest, but I did not want to complete the drainage for concern over postexpansion pulmonary edema. Will drain the chest tomorrow morning. The patient tolerated the procedure well and a chest x-ray is pending.
[2019-05-02] MEDS ORDERED: MIDAZOLAM INJ 2 MG/2 ML VIAL (J2250) IV STA ×3 (20:05)
[2019-05-02] MEDS ORDERED: LIDOCAINE 1% MDV 20ML VIAL SC ONE (20:15)
--- NOTE | 2019-05-02 20:53 | REP ---
Clinical: Status post chest tube. Technique: Portable AP view of the chest. Comparison: 05/02/2019 at 02:23 p.m. Findings: Right-sided chest tube is now identified extending to the medial right upper lung zone. Complete opacification of the right hemithorax remains essentially unchanged. Diffuse moderate alveolar and interstitial infiltrates now identified involving the left hemithorax. Visualized portions of the mediastinum and cardiac silhouette are stable. Skeletal structures intact. Impression: Right-sided chest tube. Continued complete opacification of the right hemithorax with underlying alveolar and interstitial infiltrates involving the aerated left hemithorax. Electronically Signed by Travis Guardado MD 05/02/2019 08:45 P
--- NOTE | 2019-05-02 21:00 | CR ---
DATE OF CONSULTATION: 05/02/2019 HISTORY OF PRESENT ILLNESS: The patient is a 58-year-old white male who was diagnosed with stage IV, [id number] renal cell carcinoma from a right renal mass with renal involvement and bone and pulmonary metastases. He sought initial oncologic therapy at [facility] who declined him for operation. He has since undergone both chemotherapy and local palliative radiation therapy to his spine and to his hip. Approximately 1 week ago, the patient started to become short of breath. It was a fairly rapid onset, which has gotten progressively much worse, so that he is now short of breath at rest. Today he just could not breathe anymore and finally sought medical attention. He has had no fever, chills, or sweats. He feels chest pressure on his right side. His appetite is decreased, particularly over the last week. There is no difficulty swallowing. He has had a cough which has been productive, but he swallows his sputum. It has gotten worse over the week. Chest x-ray was taken, and he was found to have a complete whiteout of the right chest. PAST MEDICAL HISTORY: Rheumatoid arthritis, treated with anti-inflammatories, immunosuppressants to include infliximab and methotrexate. PAST SURGICAL HISTORY: Tonsillectomy. Right renal biopsy at [facility]. MEDICATIONS AT HOME: - ProAir HFA two puffs four times a day, which was given to him two days ago by his primary care physician to treat his shortness of breath. - cabozantinib 60 mg daily - gabapentin 300 mg nightly - Vicodin 10-325 four times a day as needed for back pain - lorazepam 0.5 mg by mouth as needed for anxiety - omeprazole 20 mg daily - Zofran 40 mg by mouth every 6 hours as needed for nausea or vomiting TRAVEL HISTORY: He has traveled just as far as [place]. EXPOSURES: No exposure to tuberculosis. He has one dog at home. No cats or birds. 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 No exposure to asbestos. HABITS: [place] 25 pack-year history. Alcohol occasionally. Illicit drugs - does use cannabis in various forms for pain and anxiety. REVIEW OF SYSTEMS: CONSTITUTIONAL: See history of the present illness. EYES: Without diplopia, without amaurosis fugax, without prior jaundice. NOSE: Without epistaxis. MOUTH: Has his own teeth. RESPIRATORY: See history of the present illness. CARDIAC: Does have palpitations off and on. No history of myocardial infarctions. No intermittent claudication. Does not complain of peripheral edema. ABDOMEN: Has nausea but no vomiting. No diarrhea, no constipation, no melena or hematochezia, or hematemesis. Feels tight in his abdomen over the last few days. Does not have appreciable abdominal pain. GENITOURINARY (): Without dysuria or hematuria. No history of renal stones. ENDOCRINE: Without diabetes, without thyroid disease. HEMATOLOGIC: Without prolonged bleeding times. NEUROLOGIC: Without paresthesias, paralyses, or seizures. Specifically, has no sciatica. He has chronic back pain from metastases at T12. PSYCHIATRIC: Without inappropriate or pathologic anxieties, psychoses, or depression. PHYSICAL EXAMINATION: Well-developed, well-nourished white male in moderate respiratory distress. VITAL SIGNS: Show a temperature of 96.0 with a heart rate of 111 and sinus tachycardia. Respiratory rate of 26 with the use of accessory muscles and with rocking abdominal motions. Blood pressure is 158/100, and he is 98% saturated on 4 liters nasal cannula. EYES: Pupils equal, round and reactive to light. Extraocular motor intact. Sclerae nonicteric. NOSE: Without deformity. MOUTH: Shows his mucous membranes to be pink and moist. Lips and commissures without lesions. There is no thrush. Teeth are in fairly good repair. NECK: Neck is supple. There is no jugular venous distention. No subcutaneous emphysema. Trachea is midline. There is no thyromegaly, lymphadenopathy. He has 2+ carotid upstrokes without bruits. LUNGS: Show markedly decreased breath sounds on the right with complete e to a egophony on the right. Percussion note is full from the diaphragm to the apex on the right side. The left side shows some inspiratory rales and rhonchi, which clear with coughing. Percussion note is full to the diaphragm on the left. CARDIAC: Cardiac exam is without murmurs, clicks, gallops or rubs. I cannot feel his point of maximum impulse (PMI). S1, S2 are normal. ABDOMEN: Distended and tympanitic but nontender. Bowel sounds are positive but hypoactive. I cannot appreciate hepatomegaly. There is no costovertebral angle tenderness. EXTREMITIES: Show trace pretibial edema. No calf tenderness. No differential swelling of the upper extremities. SKIN: Warm, dry and perfused without cyanosis or mottling, including that of the nail beds and the knees. NEUROLOGIC: Shows II-XII intact along with gross motor and gross sensation intact. Gait is not tested. PSYCHIATRIC: Shows him to be awake and alert, oriented times three with appropriate mood and affect and conversational. Chest x-ray shows a complete whiteout, opacification of the right hemithorax. There is a shift to the left. Left costophrenic angle is sharp. His chest CT confirms a complete opacification with fluid from the cupola to the diaphragm. All three lobes are severely compressed. There is, again, a shift to the left. He has a small left pleural effusion. There is no pericardial effusion. I cannot tell what is underneath the right lung. He has what looks to be emphysematous changes on the left with a number of infiltrative nodules and solid nodules. The abdominal portion of the exam shows a very large right renal mass. I do not see liver metastases. Neither do I see ascites. On the coronal view, his diaphragm is severely depressed secondary to the pressure effects with the liver being pushed way into the abdomen. I do not appreciate a pulmonary embolism as the exam is done with a CT angio. He has a severe compression fracture of T10. This can be seen both on the coronal views and the sagittal views. The vertebra is almost completely replaced with tumor. IMPRESSION: 1. Stage IV renal cell carcinoma. 2. New pleural effusion, probably malignant. 3. Metastatic disease to the thoracic (T) spine and pulmonary parenchyma. PLAN AND DISCUSSION: I do suspect this is going to be a malignant pleural effusion and that it is going to come back. Rather than place a chest tube, I will, therefore, place a PleurX catheter. Additionally, he is scheduled to be operated on at [facility] with spinal surgery via the left chest to replace the vertebra with a cage. They are, therefore, going to want that right chest completely drained. We will send the specimens off for the requisite bacteriologies, cytologies, chemistries and hematologies. I intend to only drain him one liter as I am concerned of postexpansion pulmonary edema given the fact that his entire right lung, all three lobes are severely compressed. I have warned him that even only after draining a limited amount of fluid that he may go into postexpansion pulmonary edema and need mechanical ventilation, either noninvasive or invasive with intubation.
[2019-05-02] MEDS: DOCUSATE SODIUM 100 MG CAP PO SCH (21:09)
[2019-05-02] MEDS: HEPARIN SOD (PORCINE) 5000 UNITS/ML VIAL SC SCH (21:09)
[2019-05-02] MEDS: SENNA 8.6 MG TAB (SENOKOT) PO SCH (21:09)
[2019-05-02] MEDS: GABAPENTIN 300 MG CAP PO SCH (21:09)
[2019-05-02 21:37] LABS: PH BODY FLUID 7.426 UNITS (NOT ESTABLISHED); SOURCE, BODY FLUID pH PLEURAL
[2019-05-02 21:52] LABS: PLEURAL FL COLOR AMBER (COLORLESS); SOURCE, BODY FLUID PLEURAL
[2019-05-02 21:53] LABS: APPEARANCE, BODY FLUID TURBID (CLEAR)
[2019-05-02 22:03] LABS: AMYLASE, BODY FLUID 21 U/L (NOT ESTABLISHED); CHOLESTEROL, BODY FLUID 81 MG/DL (NOT ESTABLISHED); LDH, BODY FLUID 611 U/L (NOT ESTABLISHED); SOURCE, BODY FLUID ALBUMIN PLEURAL; SOURCE, BODY FLUID AMYLASE PLEURAL; SOURCE, BODY FLUID CHOL PLEURAL; SOURCE, BODY FLUID GLUCOSE PLEURAL; SOURCE, BODY FLUID LDH PLEURAL; SOURCE, BODY FLUID TOT PROTEIN PLEURAL; SOURCE, BODY FLUID TRIG PLEURAL; TOTAL PROTEIN, BODY FLUID 4.7 G/DL (NOT ESTABLISHED); TRIGLYCERIDE, BODY FLUID 80 MG/DL (NOT ESTABLISHED)
[2019-05-03] VITALS (30 sets, daily range): BP systolic 112–175; BP diastolic 62–85; O2SAT 92–98
[2019-05-03] MEDS: LEVALBUTEROL 1.25 MG/0.5 ML CONCENTRATE NEB NEB SCH ×5 (00:30→23:50)
[2019-05-03] MEDS: PERCOCET 5MG/325MG TAB PO PRN ×3 (03:20→20:22)
[2019-05-03] MEDS: HEPARIN SOD (PORCINE) 5000 UNITS/ML VIAL SC SCH ×3 (05:10→20:19)
[2019-05-03 05:42] LABS: BASO % 0.5 % (0.0-1.0); EOS # 0.2 10^3/uL (0.0-0.5); HEMATOCRIT 36.4 % (42.0-52.0); HEMOGLOBIN 11.9 g/dl (13.5-17.5); LYMPH # 0.5 10^3/uL (1.5-5.0); LYMPH % 5.7 % (24.0-44.0); MEAN CORPUSCULAR HEMOGLOBIN 34.5 pg (27.0-33.0); MEAN CORPUSCULAR HGB CONC 32.7 g/dl (32.0-36.5); MEAN CORPUSCULAR VOLUME 105.5 fl (80.0-96.0); MONO # 1.6 10^3/uL (0.0-0.8); MONO % 18.1 % (0.0-5.0); NEUTROPHILS # 6.5 10^3/uL (1.5-8.5); NEUTROPHILS % 73.4 % (36.0-66.0); PLATELET COUNT, AUTOMATED 184 10^3/uL (150-450); RED BLOOD COUNT 3.45 10^6/uL (4.30-6.10); WHITE BLOOD COUNT 8.8 10^3/uL (4.0-10.0)
[2019-05-03 06:11] LABS: ALBUMIN 2.5 GM/DL (3.2-5.2); ALT/SGPT 20 U/L (12-78); BILIRUBIN,TOTAL 0.4 MG/DL (0.2-1.0); BLOOD UREA NITROGEN 20 MG/DL (7-18); CALCIUM LEVEL 6.9 MG/DL (8.5-10.1); CARBON DIOXIDE LEVEL 25 MEQ/L (21-32); CHLORIDE LEVEL 106 MEQ/L (98-107); CREATININE FOR GFR 1.11 MG/DL (0.70-1.30); GLOMERULAR FILTRATION RATE > 60.0 (>56); GLUCOSE, FASTING 134 MG/DL (70-100); MAGNESIUM LEVEL 2.3 MG/DL (1.8-2.4); POTASSIUM SERUM 4.8 MEQ/L (3.5-5.1); SODIUM LEVEL 137 MEQ/L (136-145); TOTAL PROTEIN 5.9 GM/DL (6.4-8.2)
[2019-05-03 06:35] LABS: ABG BASE EXCESS -1.5 (-2.0-2.0); ABG HCO3 22.8 MEQ/L (22.0-26.0); ABG O2 SATURATION 98.3 % (95.0-99.0); ABG PARTIAL PRESSURE CO2 36.9 mmHg (35.0-45.0); ABG PARTIAL PRESSURE O2 113.3 mmHg (75.0-100.0); ABG STANDARD HCO3 23.2 MEQ/L (22.0-26.0); ABG TOTAL CO2 23.9 MEQ/L (22.0-29.0); ABG pH (ARTERIAL) 7.408 UNITS (7.350-7.450)
[2019-05-03] MEDS: DOCUSATE SODIUM 100 MG CAP PO SCH ×2 (08:23→20:19)
[2019-05-03] MEDS: SENNA 8.6 MG TAB (SENOKOT) PO SCH ×3 (08:23→20:19)
[2019-05-03] MEDS: MOM 30ML SUSPENSION UDC PO SCH (08:23)
[2019-05-03] MEDS: PANTOPRAZOLE 40MG TAB (PROTONIX) PO SCH (08:23)
[2019-05-03] MEDS ORDERED: OMEPRAZOLE 20 MG CAP PO SCH (09:00)
--- NOTE | 2019-05-03 09:09 | REP ---
Clinical: Follow up hydrothorax. Technique: PA and lateral. Comparison: 05/02/2019. Findings: Right-sided chest tube identified. Complete opacification of the right hemithorax suggests continued large effusion which may be slightly decreased when compared to prior examination based on position of the mediastinal structures. Left hemithorax suggests chronic interstitial changes and possible left basilar atelectasis. Impression: Right chest tube in satisfactory position. Continued large right pleural effusion which may be slightly decreased when compared to prior examination. Electronically Signed by Travis Guardado MD 05/03/2019 09:00 A
[2019-05-03] MEDS: NORCO, ANEXSIA 5/325MG TABLET (HYDROcodone/ACETAMINOPHEN) PO PRN ×2 (11:36→16:57)
--- NOTE | 2019-05-03 12:06 | REP ---
Clinical: Status post drainage. Technique: PA and lateral. Comparison: 05/03/2019 at 08:42 a.m. Findings: Decreased right pleural fluid is now appreciated. Right hemithorax demonstrates large loculated pleural fluid along with diffuse ill-defined parenchymal opacities. Left hemithorax demonstrates subtle scattered interstitial changes. No obvious pneumothorax. Visualized portions of the mediastinum and cardiac silhouette are normal. Skeletal structures are intact. Impression: Decreased right pleural fluid. Large loculated right pleural collection and diffuse parenchymal opacities. Electronically Signed by Travis Guardado MD 05/03/2019 11:57 A
--- NOTE | 2019-05-03 13:08 | IPN ---
DATE: 05/03/2019 This is the first hospital day for Mr. Gale in whom a PleurX catheter was placed and 2 liters of fluid was removed. He is breathing a whole lot better today, however, his chest x-ray still shows a complete white out of the right side. His vital signs show a T-max of 98.7 with a heart rate that ranges between 22 and 20 without the use of accessory muscles, who is 93% to 95% saturated on 4 liters nasal cannula and whose blood pressure is ranging between 136/79 to 155/88. His intake and output the past 24 hours has been recorded as 660 in and 250 out for a positivity of 410 mL. This does not include the 2 liters that was taken off with the PleurX catheter. Since midnight, his ins and outs have been 720 in and 1100 out for a negativity of 380 mL. He weighs 70 kg compared to 71.2 kg yesterday. On physical examination, he still has markedly diminished breath sounds on the right side with E to A egophony. Percussion note is dull throughout the entire right chest. Left chest has normal vesicular sounds with occasional rhonchi which clear with coughing. Cardiac Exam: Without murmurs, clicks, gallops, or rubs. I cannot feel his PMI. S1 and S2 are normal. Abdomen: Soft. Nontender. Bowel sounds are positive. There is no hepatomegaly. There is no costovertebral angle (CVA) tenderness. Extremities: Show 1+ pretibial edema. No calf tenderness. No differential swelling of the upper extremities. Skin: Warm, dry and perfused. Without mottling or cyanosis, including that of the nail beds and the knees. Neck: Supple. There is no jugular venous distention. No subcutaneous emphysema. Trachea is midline. Mouth: Shows his mucous membranes to be pink and moist. Lips and commissures are without lesions. There is no thrush. Eyes: Show his pupils to be equal and reactive. Extraocular movements intact. Sclerae nonicteric. Neurologic: Shows II-XII intact along with gross motor and gross sensation intact. Gait is not tested. Psychiatric shows him to be awake, alert, and oriented times three with appropriate mood and affect and conversational. His white count today is 8.8 with hemoglobin and hematocrit of 11.9 and 36.4, down from 13.7 and 42.5. Platelet count is 184 with a differential that shows 72% neutrophils, 5% lymphocytes, 18% monocytes. There are no immature forms and no toxic granulations. His electrolytes are essentially normal with a BUN and creatinine of 20 and 1.1. Glucose is 134 with a calcium of 6.9 and an albumin of 2.5. Blood gases today show a pH of 7.40, pCO2 of 36 and pO2 of 113 on the above oxygen with a base excess of -1.5. His pleural fluid has been returned with a pH of 7.42, with a glucose of 95, LDH of 611, with a corresponding serum LDH of 160, with a total protein of 4.7 and a corresponding total protein of 5.9. There were 199 white cells, with equal numbers of polymorphonuclear neutrophil matches and lymphocytes. Bacteriology: Gram stain did not show any organisms. Pathology of course is still pending, will probably be reported back tomorrow. As noted in the introduction, his chest x-ray still shows his right hemithorax completely opacified. The trachea however is now in the midline as opposed to his admission chest x-ray which showed it to be pushed and deviated to the left. IMPRESSION: 1. Stage IV renal cell carcinoma with metastases to lung and vertebral spine. 2. Pleural effusion, probably malignant. 3. Complete atelectasis and compression of all three lobes of the right lung. PLAN AND DISCUSSION: I drained him 2 liters last night and I will do the remainder of the drainage today. He had a fairly good night with regard to post expansion pulmonary edema, although I suspect his lungs have not yet expanded. I will obtain another chest x-ray once his fluid is removed. If the lung does not show at least some expansion, I will obtain another CT to see what is going on underneath. Will probably have to place him on C-PAP. The nursing staff will teach him and his how to do the drainage procedures.
--- NOTE | 2019-05-03 13:47 | REP ---
Clinical: Pleural effusion. Technique: Axial noncontrast images from the thoracic inlet to the upper abdomen with coronal and sagittal re-formations. Findings: A right-sided chest tube is identified extending to the medial right hemithorax at the level of T4. Large right pleural effusion is mildly decreased when compared to prior examination. With evidence for underlying consolidations as well as presumed metastatic foci measuring up to approximately 11 mm. Left hemithorax demonstrates small stable pleural effusion with left lower lobe atelectasis and diffuse scattered pulmonary metastatic lesions measuring up to approximately 12 mm as well as a left upper lobe mass / consolidation measuring 3 cm diameter with surrounding ground-glass opacity and left suprahilar mass / consolidation measuring 2.4 cm diameter. Mediastinal and hilar lymph nodes are poorly evaluated but measure up to approximately 16 mm in the precarinal space. Expansile metastatic focus involving the posterior aspect of the left tenth rib and smaller scattered osseous metastatic foci remain stable. Limited upper abdomen demonstrates a large right renal mass with perinephric stranding and adjacent metastatic soft tissue lesions unchanged from prior examination. Impression: 1. Minimal improvement of the large right pleural effusion. 2. Diffuse bilateral pulmonary metastatic foci. 3. Areas of consolidation involving the right hemithorax and left base along with left pleural effusion remain unchanged. 4. Osseous metastatic disease, renal mass, and adjacent right upper abdominal metastatic lesions again noted and unchanged. Electronically Signed by Travis Guardado MD 05/03/2019 01:38 P
[2019-05-03] MEDS ORDERED: MIDAZOLAM INJ 2 MG/2 ML VIAL (J2250) As Ordered ONE ×2 (14:42→14:43)
[2019-05-03] MEDS: NICOTINE 21MG/24HR 1 EA TRANSDERMAL TD SCH (14:58)
[2019-05-03] MEDS ORDERED: MIDAZOLAM INJ 2 MG/2 ML VIAL (J2250) IV ONE ×2 (15:32→15:36)
--- NOTE | 2019-05-03 16:28 | REP ---
Portable chest x-ray: Single view. History: Status post pleural drainage. Comparison chest x-ray May 03, 2019. Findings: A right-sided Pleurx catheter is seen in place. The right hydrothorax is much improved. There is still some blunting of the right lateral pleural angle. There are linear opacities in the right perihilar and right base region consistent with discoid atelectasis. There is fullness in the right hilus suggesting adenopathy. There are ill-defined opacities in the perihilar region on the left and in the upper lobe region on the left unchanged from recent chest x-ray and chest CT study. There is no evidence of pneumothorax. Impression: Right pleural effusion much improved post Pleurx catheter placement. Electronically Signed by Prakash Garibay MD 05/03/2019 04:45 P
--- NOTE | 2019-05-03 18:35 | IPNPDOC ---
Date Seen The patient was seen on 05/03/19. Progress Note HISTORY OF PRESENT ILLNESS: 58-year-old male with past medical history of metastatic renal cell carcinoma diagnosed in October 2018, status post chemotherapy and radiation, presents with worsening shortness of breath for the past week. Patient reports is at rest, along with worsening dyspnea on exertion for the past week, progressing, reports associated cough productive of small amounts of clear sputum. He also reports difficulty with swallowing solids during this time. He went to his primary care physician for 5 days ago for these symptoms, treated with nebulizers and sent home. Due to progressive dyspnea he went back to his PCP earlier today, had a chest x-ray which showed complete white out of the right lung and he was asked to come to the emergency department. In the ED is found to have a large right pleural effusion with compressive atelectasis of the right lung and shift of the mediastinum into the left hemithorax. Thoracic surgery has been consulted, evaluation pending. Patient currently denies any chest pain, nausea, vomiting, abdominal pain or diarrhea. He seems to be comfo rtable on nasal cannula. 05/03/2019 Patient reports improvement in dyspnea after placement of Pleurx catheter and removal of 2 L yesterday, continues to have dry cough, no other complaints. 10 point review of system is negative except for above HOME MEDICATIONS: Please see below. PHYSICAL EXAMINATION: VITAL SIGNS: Please see below. GENERAL: No distress HEENT: Normocephalic, atraumatic, moist mucous membranes NECK: Supple CARDIOVASCULAR EXAMINATION: S1, S2, no murmurs RESPIRATORY EXAMINATION: Slight improvement in the right upper lobe, diminished/absent in the right lower lobe, no wheezing, clear on the left side ABDOMINAL EXAMINATION: Soft, nontender, nondistended, positive bowel sounds EXTREMITIES: Range of motion intact SKIN: No rash NEUROLOGICAL EXAMINATION: Alert and oriented 3, no focal deficits PSYCHIATRIC EXAMINATION: Calm and cooperative LABORATORY DATA: See below. IMAGING: CT chest with large pleural effusion on the right side with compressive atelectasis of the right lung MICROBIOLOGY: Please see below. ASSESSMENT: 58-year-old male with past mental history of metastatic renal cell carcinoma, presents with large right-sided pleural effusion and compressive atel ectasis with known history of lung metastases. PLAN: 1. Large right pleural effusion. Likely malignant effusion from metastatic renal cell carcinoma, initial episode, status post Pleurx catheter placement, removal of 2 L yesterday, remainder of fluid removed today, repeat chest x-ray with good lung expansion. Pleural fluid exudative, cytology pending, 2. Renal cell carcinoma. Metastatic, status post radiation, undergoing chemotherapy. Continue pain control and bowel regimen DVT prophylaxis: Heparin subcutaneous GI prophylaxis: Protonix VS, I&O, 24H, Fishbone Vital Signs/I&O Vital Signs Date Time Temp Pulse Resp B/P (MAP) Pulse Ox O2 Delivery O2 Flow Rate FiO2 05/03/19 18:00 96 Nasal Cannula 4.0 05/03/19 17:27 20 05/03/19 16:00 98.4 95 115/62 (79) I&O- Last 24 Hours up to 6 AM 05/03/19 06:00 Intake Total 1020 ml Output Total 400 ml Balance 620 ml Laboratory Data 24H LABS Laboratory Tests 2 05/02/19 19:55: Lactic Acid Followup at 4 Hours 1.6, Lactate Dehydrogenase 160 05/02/19 21:13: Body Fluid pH 7.426, Body Fluid pH Source PLEURAL, Body Fluid WBC (Auto) 199H, Body Fluid RBC (Auto) 13, Body Fluid Mononuclear Cells % Auto 51.8H, Fluid Polymorphonuclear Cell % Auto 48.2H, Body Fluid Glucose Source PLEURAL, Body Fluid Glucose 95, Body Fluid Protein Source PLEURAL, Body Fluid Total Protein 4.7, Body Fluid Albumin Source PLEURAL, Body Fluid Albumin 2.7, Body Fluid LDH Source PLEURAL, Body Fluid Lactate Dehydrogenase 611, Body Fluid Amylase Source PLEURAL, Body Fluid Amylase 21, Body Fluid Cholesterol 81, Body Fluid Cholesterol Source PLEURAL, Body Fluid Triglyceride Source PLEURAL, Body Fluid Triglycerides 80, Pleural Fluid Source PLEURAL, Pleural Fluid Color PROSPER, Pleural Fluid Appearance TURBID 05/03/19 05:08: Immature Granulocyte % (Auto) 0.3, Neutrophils (%) (Auto) 73.4H, Lymphocytes (%) (Auto) 5.7L, Monocytes (%) (Auto) 18.1H, Eosinophils (%) (Auto) 2.0, Basophils (%) (Auto) 0.5, Neutrophils # (Auto) 6.5, Lymphocytes # (Auto) 0.5L, Monocytes # (Auto) 1.6H, Eosinophils # (Auto) 0.2, Basophils # (Auto) 0.0, Nucleated Red Blood Cells % (auto) 0.0, Anion Gap 6L, Glomerular Filtration Rate > 60.0, Calcium Level 6.9L, Magnesium Level 2.3, Total Bilirubin 0.4, Aspartate Amino Transf (AST/SGOT) 15, Alanine Aminotransferase (ALT/SGPT) 20, Alkaline Phosphatase 76, Total Protein 5.9L, Albumin 2.5#L, Albumin/Globulin Ratio 0.74L 05/03/19 06:07: Blood Gas Bicarbonate Standard 23.2, Arterial Blood pH 7.408, Arterial Blood Partial Pressure CO2 36.9, Arterial Blood Partial Pressure O2 113.3H, Arterial Blood Total CO2 23.9, Arterial Blood HCO3 22.8, Arterial Blood Base Excess -1.5, Arterial Blood Oxygen Saturation 98.3 CBC/BMP Laboratory Tests 05/03/19 05:08 Microbiology Microbiology 05/02/19 Body Fluid Culture, Received Pending 05/02/19 Acid Fast Stain, Received Pending 05/02/19 Mycobacterial Culture, Received Pending 05/02/19 Fungal Smear, Received Pending 05/02/19 Fungal Culture, Received Pending 05/02/19 Gram Stain - Final, Resulted 05/02/19 Anaerobic Culture, Resulted Pending 05/02/19 Respiratory Virus Panel (PCR) (BLAZE) - Final, Complete 05/02/19 Blood Culture, Received Pending 05/02/19 Blood Culture, Received Pending 05/02/19 Blood Culture - Preliminary, Resulted No growth after 24 hours . All specim... HILARIO ROBLES MD May 03, 2019 18:35
[2019-05-03] MEDS ORDERED: SLF 3 ML SYR IV PRN (18:45)
[2019-05-03] MEDS: GABAPENTIN 300 MG CAP PO SCH (20:20)
[2019-05-03] MEDS: SLF 3 ML SYR IV SCH (21:53)
[2019-05-04] VITALS (8 sets, daily range): BP systolic 125–126; BP diastolic 70–74; O2SAT 96–99
[2019-05-04] MEDS: NORCO, ANEXSIA 5/325MG TABLET (HYDROcodone/ACETAMINOPHEN) PO PRN ×3 (00:45→14:14)
[2019-05-04] MEDS: HEPARIN SOD (PORCINE) 5000 UNITS/ML VIAL SC SCH ×2 (05:51→14:00)
[2019-05-04] MEDS: SLF 3 ML SYR IV SCH ×2 (05:51→14:00)
[2019-05-04] MEDS: PERCOCET 5MG/325MG TAB PO PRN (05:52)
--- NOTE | 2019-05-04 07:54 | REP ---
Clinical: Follow-up hydropneumothorax. Technique: PA and lateral. Comparison: 05/03/2019. Findings: Right-sided chest tube in stable position. Right pleural effusion has considerably decreased. Underlying right sided pleuroparenchymal changes noted along with subtle left upper lobe and left basilar opacities. Cardiac silhouette is normal/stable. Impression: 1. Decreased right pleural effusion. 2. Continued diffuse bilateral pleuroparenchymal changes (right greater than left). Electronically Signed by Travis Guardado MD 05/04/2019 07:45 A
[2019-05-04] MEDS: LEVALBUTEROL 1.25 MG/0.5 ML CONCENTRATE NEB NEB SCH (08:00)
[2019-05-04 08:28] LABS: BASO % 0.4 % (0.0-1.0); EOS # 0.2 10^3/uL (0.0-0.5); EOS % 1.9 % (0.0-3.0); HEMATOCRIT 38.7 % (42.0-52.0); HEMOGLOBIN 12.8 g/dl (13.5-17.5); LYMPH # 0.5 10^3/uL (1.5-5.0); LYMPH % 6.3 % (24.0-44.0); MEAN CORPUSCULAR HEMOGLOBIN 34.2 pg (27.0-33.0); MEAN CORPUSCULAR HGB CONC 33.1 g/dl (32.0-36.5); MEAN CORPUSCULAR VOLUME 103.5 fl (80.0-96.0); MONO # 1.2 10^3/uL (0.0-0.8); MONO % 14.6 % (0.0-5.0); NEUTROPHILS # 6.5 10^3/uL (1.5-8.5); NEUTROPHILS % 76.4 % (36.0-66.0); PLATELET COUNT, AUTOMATED 195 10^3/uL (150-450); RED BLOOD COUNT 3.74 10^6/uL (4.30-6.10); WHITE BLOOD COUNT 8.5 10^3/uL (4.0-10.0)
[2019-05-04 08:46] LABS: BLOOD UREA NITROGEN 15 MG/DL (7-18); CALCIUM LEVEL 7.3 MG/DL (8.5-10.1); CARBON DIOXIDE LEVEL 27 MEQ/L (21-32); CHLORIDE LEVEL 106 MEQ/L (98-107); CREATININE FOR GFR 0.99 MG/DL (0.70-1.30); GLOMERULAR FILTRATION RATE > 60.0 (>56); GLUCOSE, FASTING 122 MG/DL (70-100); POTASSIUM SERUM 4.3 MEQ/L (3.5-5.1); SODIUM LEVEL 136 MEQ/L (136-145)
[2019-05-04] MEDS: NICOTINE 21MG/24HR 1 EA TRANSDERMAL TD SCH (09:09)
[2019-05-04] MEDS: MOM 30ML SUSPENSION UDC PO SCH (09:10)
[2019-05-04] MEDS: PANTOPRAZOLE 40MG TAB (PROTONIX) PO SCH (09:10)
[2019-05-04] MEDS: DOCUSATE SODIUM 100 MG CAP PO SCH (09:10)
[2019-05-04] MEDS: SENNA 8.6 MG TAB (SENOKOT) PO SCH (09:11)
[2019-05-04] MEDS: GASTROGRAFIN SOLUTION 30ML PO SCH ×2 (09:51→10:21)
--- NOTE | 2019-05-04 10:17 | IPN ---
DATE: 05/04/2019 Mr. Gale is feeling much better today. Yesterday, we removed an additional 3 liters from his chest with a PleurX catheter. His chest x-ray after removal of an additional liter in the morning showed a little bit of reexpansion of the upper lobe. He has a little pain associated with his drainage. I drained him under conscious sedation with 3 mg of Versed to the entire extent of what was in the chest. I have gone over the pathology with Dr. Townsend and there are numerous suspicious cells with clear cytoplasm and with vacuolization, which are high suspicious for malignant renal cell carcinoma. Final markers are being requested. He is breathing much better today. He had a little bit of pain last night but minimal. His vital signs show a maximum temperature (t-max) of 98.4 with a heart rate that ranges between 89 and 111 in a sinus rhythm, respiratory rate of 16 to 18 without the use of accessory muscles who is 96 to 97% saturated on 3 liters nasal cannula. His blood pressure is ranging between 125/70 to 114/62. His intake and output over the past 24 hours has been recorded as 1320 in and 3300 out for a negativity of 1980 mL. That includes the 3 liters removed with the PleurX catheter. He weighs 67.1 kg today compared to 70 kg yesterday, which is consistent with removal of 3 liters of fluid. PHYSICAL EXAMINATION: LUNGS: He still has coarse rhonchi on the right side but these mostly clear with coughing. The E to A egophony is gone. Left side also shows some coarse rhonchi, which clears with coughing. Percussion notes are full to the diaphragm. CARDIAC EXAM: Without murmurs, clicks, gallops or rubs. I cannot feel his point of maximum impulse (PMI). S1, S2 are normal. ABDOMEN: Soft, nontender. Bowel sounds positive. There is no hepatomegaly. No costovertebral angle tenderness. EXTREMITIES: Trace pretibial edema. No calf tenderness. No differential swelling of the upper extremities. SKIN: Warm, dry and perfused without cyanosis or mottling, including that of the nail beds and knees. NECK: Supple. There is no jugular venous distention. No subcutaneous emphysema. Trachea is midline. MOUTH: Shows his mucous membranes to be pink and moist. Lips and commissures without lesions. There is no thrush. EYES: Show his pupils to be equal and reactive. Extraocular motion intact. Sclerae anicteric. NEUROLOGIC: Shows II through XII intact with gross motor and gross sensation intact. Gait is not tested. PSYCHIATRIC: Shows him to be awake and alert, oriented times three with appropriate mood and affect and conversational. LABORATORY DATA His white count today is 8.7 with a hemoglobin and hematocrit of 12.8 and 38.7, respectively. Platelet count is 195 and differential shows 76% neutrophils, 6% lymphocytes, 14% monocytes. There are no immature forms and no toxic granulations. His chemistries show normal electrolytes with BUN and creatinine of 15 and 0.99, glucose of 122 and calcium 7.1. Chest x-ray today shows the lung fully expanded to the chest wall. There is some reaccumulation of fluid compared to his portable chest x-ray yesterday just after removing the last 2 liters of fluid. PleurX catheter is in good place. There is some accumulation posteriorly of fluid on the lateral chest x-ray. IMPRESSION: 1. Stage IV renal cell carcinoma with metastases to lung and vertebral spine. 2. Pleural effusion, malignant. 3. Atelectasis and complete compression of all three lobes of the right lung, now resolved. 4. Hypoxemia. PLAN/DISCUSSION: I am going to take him off his oxygen today and see if he will maintain his saturations. I will tolerate saturations down to 88%. There is no reason he cannot go home today to enjoy Thanksgiving as he is now completely drained and his PleurX catheter is in. His and he have been taught the drainage procedures and they are going to drain him one more time today. He has an oncology appointment next week and in preparation for that I will obtain a CT scan of his chest and abdomen with contrast to check for disease progression for oncology's information. They have already ordered those examinations later this week and we might as well do it before he leaves the hospital to preserve his quality of time with his family. I will see him back in the office on Thursday in post hospitalization followup. He has been instructed to drain himself every other day or when he becomes symptomatic. I have also discussed his plan with his hospitalist, Dr. West, and he is in agreement, and we will discharge him today.
[2019-05-04] MEDS ORDERED: ISOVUE-370 76% 100ML VIAL (Q9967) As Ordered ONE (11:17)
--- NOTE | 2019-05-04 12:07 | REP ---
Clinical: History of malignancy. Follow up pleural effusion. Technique: Axial contrast enhanced images from the thoracic inlet to the upper abdomen with coronal and sagittal re-formations. Comparison: 05/03/2019. Findings: Right-sided chest tube again noted. Moderate partially loculated right pleural effusion is decreased from prior examination. Diffuse bilateral pleuroparenchymal changes, metastatic disease, and left upper lobe mass along with small to moderate left pleural effusion remain essentially unchanged. Mediastinum including adenopathy remains stable. Impression: Right pleural effusion is moderately decreased when compared to prior examination. Remainder of the of the examination is relatively stable including diffuse bilateral pleuroparenchymal changes, left pleural effusion, and metastatic disease. Electronically Signed by Travis Guardado MD 05/04/2019 11:59 A
--- NOTE | 2019-05-04 12:27 | REP ---
Clinical: Renal cell carcinoma. Technique: Axial contrast enhanced images from the lung bases to the pubic symphysis using oral (per protocol) and 100 ml Isovue 370 intravenous contrast material with coronal and sagittal re-formations. Delayed images of the abdomen obtained. Comparison: 02/08/2019 Findings: Please refer to the chest CT for complete analysis of the chest. Large primarily necrotic right renal mass consistent with the given history of renal cell carcinoma along with perinephric stranding and perinephric satellite lesions may be slightly increased from prior examination. As example, a necrotic satellite lesion along the posterior aspect of the kidney now measures 2.3 cm maximal diameter and previously measured 1.6 cm maximal diameter and in the necrotic renal mass now measures approximately 8.9 cm maximal AP diameter along the medial mid pole region and previously measured 7.4 cm at the corresponding level. The small adjacent pathologic lymph nodes are also noted and similar to prior examination. Involvement of the right renal vein and adjacent inferior vena cava cannot be excluded. The liver is grossly unremarkable and without obvious metastatic disease. Spleen, pancreas, gallbladder, left adrenal gland and kidney are normal. The right adrenal gland is incompletely identified and essentially inseparable from the renal tumor. The enteric system is without obstruction or acute inflammatory process. Scattered colonic diverticula noted without acute diverticulitis. Pelvis demonstrates relatively normal bladder with mildly prominent prostate gland. No ascites. No free air. Abdominal aorta is without aneurysm or dissection. There is pathologic destruction of the T12 vertebral body and diffuse subtle mottling through the osseous structures suggests further skeletal metastatic disease. Impression: 1. Necrotic renal cell carcinoma with adjacent small satellite lesions and pathologic lymph nodes appear to be increased from prior examination. 2. Skeletal metastases including pathologic destruction of T12 and subtle scattered mottling to the osseous structures. 3. Further findings as described above. Please refer to chest CT dated 05/02/2019 and 05/04/2019 for thoracic findings. Electronically Signed by Travis Guardado MD 05/04/2019 12:18 P
--- NOTE | 2019-05-04 13:09 | DS.PDOC ---
Discharge Summary General Date of Admission May 02, 2019 at 17:19 Date of Discharge 05/04/19 Attending Physician: HILARIO ROBLES MD Discharge Summary PROCEDURES PERFORMED DURING STAY: None. ADMITTING DIAGNOSES: 1. Tension hydrothorax. DISCHARGE DIAGNOSES: 1. Tension hydrothorax, malignant pleural effusion. COMPLICATIONS/CHIEF COMPLAINT: Metastatic Disease,Pleural Effusion,Renal cancer HISTORY OF PRESENT ILLNESS: 58-year-old male with past medical history of metastatic renal cell carcinoma, was admitted for tension hydrothorax. Patient underwent Pleurx catheter placement, removal of 2 L of fluid per day for the past 2 days with significant improvement in dyspnea. Patient is currently comfortable, without any complaints, him and have been taught how to drain Pleurx catheter at home. Pleural fluid is exudative, cytology, concerning for malignancy. As expected, pleural fluid is likely malignant due to metastatic renal cell carcinoma. Patient will follow up with thoracic surgery next week followed by oncology and PCP. HOSPITAL COURSE: As above. DISCHARGE MEDICATIONS: Please see below. ALLERGIES: Please see below. PHYSICAL EXAMINATION: VITAL SIGNS: Please see below. GENERAL: No distress HEENT: Normocephalic, atraumatic, moist mucous membranes NECK: Supple CARDIOVASCULAR EXAMINATION: S1, S2, no murmurs RESPIRATORY EXAMINATION: Slight improvement in the right upper lobe, diminished/absent in the right lower lobe, no wheezing, clear on the left side ABDOMINAL EXAMINATION: Soft, nontender, nondistended, positive bowel sounds EXTREMITIES: Range of motion intact SKIN: No rash NEUROLOGICAL EXAMINATION: Alert and oriented 3, no focal deficits PSYCHIATRIC EXAMINATION: Calm and cooperative LABORATORY DATA: Please see below. IMAGING: X-ray with reexpansion of the right upper lobe, continues to have fluid/atelectasis in the right lower lobe PROGNOSIS: Poor ACTIVITY: As tolerated. DIET: Regular DISCHARGE PLAN: Follow up with thoracic surgery, oncology and PCP DISPOSITION: Home. DISCHARGE INSTRUCTIONS: 1. As above. DISCHARGE CONDITION: Stable. TIME SPENT ON DISCHARGE: Greater than 33 minutes. Vital Signs/I&Os Vital Signs Date Time Temp Pulse Resp B/P (MAP) Pulse Ox O2 Delivery O2 Flow Rate FiO2 05/04/19 09:41 97.4 89 16 125/70 97 Room Air 3.0 I&O- Last 24 Hours up to 6 AM 05/04/19 06:00 Intake Total 960 ml Output Total 3150 ml Balance -2190 ml Laboratory Data Labs 24H Laboratory Tests 2 05/04/19 08:04: Immature Granulocyte % (Auto) 0.4, Neutrophils (%) (Auto) 76.4H, Lymphocytes (%) (Auto) 6.3L, Monocytes (%) (Auto) 14.6H, Eosinophils (%) (Auto) 1.9, Basophils (%) (Auto) 0.4, Neutrophils # (Auto) 6.5, Lymphocytes # (Auto) 0.5L, Monocytes # (Auto) 1.2H, Eosinophils # (Auto) 0.2, Basophils # (Auto) 0.0, Nucleated Red Blood Cells % (auto) 0.0, Anion Gap 3L, Glomerular Filtration Rate > 60.0, Calcium Level 7.3L CBC/BMP Laboratory Tests 05/04/19 08:04 Microbiology Microbiology 05/02/19 Body Fluid Culture - Final, Complete 05/02/19 Acid Fast Stain, Received Pending 05/02/19 Mycobacterial Culture, Received Pending 05/02/19 Fungal Smear, Received Pending 05/02/19 Fungal Culture, Received Pending 05/02/19 Gram Stain - Final, Complete 05/02/19 Anaerobic Culture - Final, Complete 05/02/19 Respiratory Virus Panel (PCR) ([facility]) - Final, Complete 05/02/19 Blood Culture - Preliminary, Resulted No growth after 24 hours . All specim... 05/02/19 Blood Culture - Preliminary, Resulted No growth after 24 hours . All specim... 05/02/19 Blood Culture - Preliminary, Resulted No growth after 24 hours . All specim... Discharge Medications Scheduled Cabozantinib S-Malate (Cabometyx) 60 Mg Tablet, 1 TAB PO DAILY Gabapentin (Neurontin) 300 Mg Capsule, 300 MG PO QHS, (Reported) Omeprazole (Omeprazole) 20 Mg Tablet.dr, 20 MG PO DAILY, (Reported) Senna (Senna Lax) 8.6 Mg Tablet, 1 TAB PO TID, (Reported) Scheduled PRN Albuterol Sulfate (Proair Hfa) 8.5 Gm Hfa.aer.ad, 2 PUFFS INH QID PRN for SHORTNESS OF BREATH, (Reported) Hydrocodone/Acetaminophen (Hydrocodone-Acetamin 10-325 mg) 1 Each Tablet, 1 TAB PO QID PRN for PAIN, (Reported) Lorazepam (Lorazepam) 0.5 Mg Tablet, 0.5 MG PO DAILY PRN for ANXIETY, (Reported) Ondansetron HCl (Ondansetron HCl) 4 Mg Tablet, 4 MG PO Q6H PRN for NAUSEA OR VOMITING, (Reported) Allergies Coded Allergies: No Known Drug Allergies (Verified Allergy, Unknown, 11/22/18) HILARIO ROBLES MD May 04, 2019 13:09
[2019-05-04] MEDS ORDERED: PREVNAR 13 VACCINE SYRINGE (CPT CODE:90670) IM ONE (15:00)
== END 2019-05-04 14:28 | disposition home or self-care (01) | DRG 181 ==
LOC: M ED 13:45 → M ED INP 17:19 → M PCU 17:43
PROVIDERS: ADMIT Internal Medicine; ATTEND Internal Medicine
PROC: 0W9900Z Drainage of Right Pleural Cavity with Drainage Device, Open Approach (ICD-10-PCS; principal; 2019-05-02)
DX: C78.01 Secondary malignant neoplasm of right lung (principal); C64.1 Malignant neoplasm of right kidney, except renal pelvis; J94.8 Other specified pleural conditions; C79.51 Secondary malignant neoplasm of bone; J91.0 Malignant pleural effusion; J98.11 Atelectasis; C78.02 Secondary malignant neoplasm of left lung; F17.210 Nicotine dependence, cigarettes, uncomplicated; R09.02 Hypoxemia; Z92.3 Personal history of irradiation; Z79.899 Other long term (current) drug therapy; Z79.891 Long term (current) use of opiate analgesic

== ENCOUNTER → 2019-05-02 | Outpatient (REF) | payer OTHER ==
[~2019-05-02] MED LIST changes: +HYDR-3719 PO; +LORA0.5T11 PO; +OMEP20TA17 PO; +ONDA4TAB5 PO; +PATIENT COMMENT; +PROAAER10 INH; +SENN18TA PO
[2019-05-02 13:12] LABS: INR 1.07; PARTIAL THROMBOPLASTIN TIME 31.3 SECONDS (25.0-38.4); PROTHROMBIN TIME 13.6 SECONDS (11.8-14.0)
== END ==
LOC: M LAB REF 12:14
PROVIDERS: ATTEND Internal Medicine
DX: Z01.818 Encounter for other preprocedural examination (principal); M43.20 Fusion of spine, site unspecified

== ENCOUNTER 2019-05-09 13:21 | Inpatient (IN) | payer OTHER ==
[~2019-05-09] VITALS: Ht 170.2 cm; Wt 64.0 kg
[~2019-05-09 13:21] MED LIST changes: +HYDR-3719 PO; +LORA0.5T11 PO; +OMEP20TA17 PO; +ONDA4TAB5 PO; +PATIENT COMMENT; +PROAAER10 INH; +SENN18TA PO
[2019-05-09] MEDS: LEVALBUTEROL 1.25 MG/0.5 ML CONCENTRATE NEB NEB SCH ×2 (14:00→19:35)
[2019-05-09] MEDS ORDERED: ACETAMINOPHEN TAB 650MG DOSE (2X325MG) PO PRN (14:30)
[2019-05-09] MEDS ORDERED: PERCOCET 5MG/325MG TAB PO PRN (14:30)
[2019-05-09] MEDS ORDERED: BISACODYL 10 MG SUPP PR PRN (14:30)
[2019-05-09] MEDS ORDERED: NORCO, ANEXSIA 5/325MG TABLET (HYDROcodone/ACETAMINOPHEN) PO PRN (14:30)
[2019-05-09] MEDS ORDERED: LEVALBUTEROL 1.25 MG/0.5 ML CONCENTRATE NEB NEB PRN (14:30)
[2019-05-09] MEDS ORDERED: ALTEPLASE 2 MG/2 ML VIAL (J2997 PER 1MG) XX ONE (14:45)
[2019-05-09] MEDS ORDERED: GABA-843 PO (15:07)
[2019-05-09] MEDS ORDERED: PATIENT COMMENT (15:08)
[2019-05-09 15:15] VITALS: BP 123/59
[2019-05-09] MEDS ORDERED: SLF 3 ML SYR IV PRN (15:45)
[2019-05-09] MEDS: PERCOCET 5MG/325MG TAB PO PRN ×2 (16:10→20:33)
[2019-05-09 20:00] VITALS: BP 111/68
[2019-05-09] MEDS: DOCUSATE SODIUM 100 MG CAP PO SCH (20:31)
[2019-05-09] MEDS: SLF 3 ML SYR IV SCH (20:32)
[2019-05-09] MEDS: HEPARIN SOD (PORCINE) 5000 UNITS/ML VIAL SC SCH (20:32)
[2019-05-10] VITALS: BP 118/68
[2019-05-10] MEDS: LEVALBUTEROL 1.25 MG/0.5 ML CONCENTRATE NEB NEB SCH ×4 (01:32→19:25)
[2019-05-10 04:00] VITALS: BP 115/65
[2019-05-10] MEDS: ONDANSETRON 4MG/2ML VIAL (J2405) IV PRN ×4 (04:12→18:50)
[2019-05-10 05:58] LABS: BLOOD UREA NITROGEN 15 MG/DL (7-18); CALCIUM LEVEL 7.8 MG/DL (8.5-10.1); CARBON DIOXIDE LEVEL 26 MEQ/L (21-32); CHLORIDE LEVEL 103 MEQ/L (98-107); CREATININE FOR GFR 1.05 MG/DL (0.70-1.30); GLOMERULAR FILTRATION RATE > 60.0 (>56); GLUCOSE, FASTING 131 MG/DL (70-100); POTASSIUM SERUM 4.8 MEQ/L (3.5-5.1); SODIUM LEVEL 135 MEQ/L (136-145)
[2019-05-10 06:01] LABS: BASO % 0.4 % (0.0-1.0); EOS # 0.2 10^3/uL (0.0-0.5); EOS % 1.6 % (0.0-3.0); HEMATOCRIT 30.5 % (42.0-52.0); LYMPH # 0.6 10^3/uL (1.5-5.0); MEAN CORPUSCULAR HEMOGLOBIN 33.9 pg (27.0-33.0); MEAN CORPUSCULAR HGB CONC 32.8 g/dl (32.0-36.5); MEAN CORPUSCULAR VOLUME 103.4 fl (80.0-96.0); MONO # 1.9 10^3/uL (0.0-0.8); MONO % 20.2 % (0.0-5.0); NEUTROPHILS # 6.5 10^3/uL (1.5-8.5); NEUTROPHILS % 70.8 % (36.0-66.0); PLATELET COUNT, AUTOMATED 296 10^3/uL (150-450); RED BLOOD COUNT 2.95 10^6/uL (4.30-6.10); WHITE BLOOD COUNT 9.2 10^3/uL (4.0-10.0)
[2019-05-10] MEDS: SLF 3 ML SYR IV SCH ×3 (06:55→21:07)
[2019-05-10 07:51] VITALS: BP 116/66
--- NOTE | 2019-05-10 08:57 | REP ---
Two-view chest: 05/10/2019. Indication: Pleural effusion. Comparison: 05/04/2019. Findings: The right pleural effusion has significantly increased in size. The left pleural effusion is also more conspicuous. The metastatic disease is better demonstrated on the recent CT. Right-sided chest tube is unchanged in position without significant pneumothorax. Impression: Increased right greater than left pleural effusions. Electronically Signed by Giancarlo Díaz DO 05/10/2019 08:49 A
[2019-05-10] MEDS: PERCOCET 5MG/325MG TAB PO PRN ×3 (09:00→18:50)
[2019-05-10] MEDS: HEPARIN SOD (PORCINE) 5000 UNITS/ML VIAL SC SCH ×2 (09:03→21:07)
[2019-05-10] MEDS: MOM 30ML SUSPENSION UDC PO SCH (09:03)
[2019-05-10] MEDS: DOCUSATE SODIUM 100 MG CAP PO SCH ×2 (09:03→21:06)
[2019-05-10 11:00] VITALS: BP 127/69
--- NOTE | 2019-05-10 11:02 | REP ---
Clinical: Pleural effusion. Technique: Axial noncontrast images from the thoracic inlet to the upper abdomen with coronal and sagittal re-formations. Comparison: 05/04/2019. Findings: Right-sided chest tube extends along the posterior hemithorax towards the mediastinum in stable position. Large right pleural effusion is noticeably increased from prior examination. Small to moderate left pleural effusion has also increased from prior examination. The underlying areas of consolidation involving the right lung and left lower lobe as well as the innumerable metastatic nodules and left upper lobe mass remain essentially unchanged. No mediastinum including thoracic aorta, pulmonary vasculature and heart/pericardium remains stable/normal. The sternal lymph nodes measuring up to approximately 18 mm short axis diameter are stable. Osseous structures including metastatic lesion along the left posterior chest wall invading the left tenth rib as well as vertebral body lesions remain unchanged. Impression: 1. Large right pleural effusion and small to moderate left pleural effusion both increased from prior examination. Associated elements of passive atelectasis have subsequently increased. 2. Bilateral areas of consolidation, metastatic nodules, and left upper lobe mass are stable. Skeletal metastases stable. Electronically Signed by Travis Guardado MD 05/10/2019 10:53 A
--- NOTE | 2019-05-10 11:09 | REP ---
Clinical: Pleural effusion followup. Technique: Portable semiupright view. Comparison: 05/10/2019 at 08:37 a.m. Findings: Moderate right pleural effusion and small left pleural effusion appear improved by radiographic evaluation. Underlying pleuroparenchymal changes, nodules and left upper lobe mass remain grossly stable. No pneumothorax. Skeletal structures stable. Impression: Right pleural effusion appears to be improved by radiographic evaluation. Remainder examination is relatively stable. Electronically Signed by Travis Guardado MD 05/10/2019 11:00 A
--- NOTE | 2019-05-10 12:07 | IPN ---
DATE: 05/10/2019 Mr. Gale has had a stable 24 hours since being admitted and tissue plasminogen activator (tPA) pleurolysis through his PleurX catheter. He states that he is still having some trouble breathing. He was drained of 600 mL yesterday before he had too much pain and the drainage was stopped. His vital signs show a maximum temperature (Tmax) 98.5 with a heart rate that ranges between 98 and 99 in a sinus tachycardia with a respiratory rate that is constant at 18 without the use of accessory muscles, who is 93% saturated on 2 liters nasal cannula, and his blood pressures ranging between 116/66 to 127/69. His intake and output for the past 24 hours has been recorded as 390 in and 600 out for a negativity of 210 mL, including the PleurX drainage. Since midnight, he has had 120 in and 1150 out, which included another 850 mL from the PleurX catheter, which I have just drained. On physical examination: His lungs show decreased breath sounds on the right side with a dull percussion note on the right side [facility] up the chest. He has rales and rhonchi with E to A egophony. Left lung shows scattered rales and rhonchi which clear with coughing. Percussion notes are full to the diaphragm on the left. Cardiac exam: Is without murmurs, clicks, gallops, or rubs. I cannot feel his point of maximum impulse (PMI). S1, S2 are normal. Abdomen: Soft, nontender. Bowel sounds positive. There is no hepatomegaly. No costovertebral angle (CVA) tenderness. Extremities: Show trace pretibial edema. No calf tenderness. No differential swelling of the upper extremities. Skin is warm, dry, and perfused without cyanosis or mottling, including that of the nailbeds and knees. Neck is supple. There is no jugular venous distention. No subcutaneous emphysema. Trachea is midline. Mouth: Shows his mucous membranes to be pink and moist. Lips and commissures without lesions. There is no thrush. Eyes: Show his pupils to be equal and reactive. Extraocular motion intact. Sclerae anicteric. Neurologic: Shows II through XI intact with gross motor and gross sensation intact. Gait is not tested. Psychiatric: Shows him to be awake and alert, oriented times three with appropriate mood and affect and conversational. His white count today is 9.2 with a hemoglobin and hematocrit of 10.0 and 30.5. Platelet count is 296, and differential shows 70% neutrophils, 6% lymphocytes, 20% monocytes. There are no immature forms, no toxic granulations. Electrolytes today are essentially normal with a BUN and creatinine of 15 and 1.05, glucose of 131, and calcium 7.8. His chest x-ray earlier this morning showed essentially no change in his fluid from yesterday, even though he was drained of 600. I, therefore, obtained a CT scan, which confirmed that the opacity was indeed fluid with an underlying lung atelectasis. IMPRESSION: 1. Stage IV renal cell carcinoma. 2. Malignant pleural effusion, recurrent, status post PleurX catheter. 3. Metastatic disease of his renal carcinoma to thoracic spine and pulmonary parenchyma. PLAN/DISCUSSION: After I viewed the results of the earlier chest x-ray, I drained him of another 900 mL. A subsequent portable chest x-ray showed a marked reduction in the fluid. I did stop the drainage secondary to pain. I have asked the nurses to again drain him at 4 o'clock today. If we can establish that we can maintain drainage at least once a day, I will consider discharging him tomorrow.
[2019-05-10 15:22] VITALS: BP 123/60
[2019-05-10 20:00] VITALS: BP 111/62
[2019-05-11] VITALS: BP 115/65
[2019-05-11] MEDS: PERCOCET 5MG/325MG TAB PO PRN ×3 (00:33→09:13)
[2019-05-11] MEDS: LEVALBUTEROL 1.25 MG/0.5 ML CONCENTRATE NEB NEB SCH ×2 (01:39→08:11)
[2019-05-11 04:00] VITALS: BP 118/63
[2019-05-11] MEDS: ONDANSETRON 4MG/2ML VIAL (J2405) IV PRN (04:30)
[2019-05-11] MEDS: SLF 3 ML SYR IV SCH (04:30)
[2019-05-11 06:07] LABS: BASO # 0.1 10^3/uL (0.0-0.2); BASO % 0.5 % (0.0-1.0); EOS # 0.2 10^3/uL (0.0-0.5); EOS % 1.5 % (0.0-3.0); HEMATOCRIT 33.4 % (42.0-52.0); HEMOGLOBIN 10.3 g/dl (13.5-17.5); LYMPH # 1.1 10^3/uL (1.5-5.0); LYMPH % 9.3 % (24.0-44.0); MEAN CORPUSCULAR HGB CONC 30.8 g/dl (32.0-36.5); MEAN CORPUSCULAR VOLUME 110.2 fl (80.0-96.0); MONO % 18.1 % (0.0-5.0); NEUTROPHILS # 8.2 10^3/uL (1.5-8.5); NEUTROPHILS % 69.7 % (36.0-66.0); PLATELET COUNT, AUTOMATED 359 10^3/uL (150-450); RED BLOOD COUNT 3.03 10^6/uL (4.30-6.10); WHITE BLOOD COUNT 11.7 10^3/uL (4.0-10.0)
[2019-05-11 06:25] LABS: CALCIUM LEVEL 7.6 MG/DL (8.5-10.1); CREATININE FOR GFR 1.34 MG/DL (0.70-1.30); GLOMERULAR FILTRATION RATE 58.1 (>56); POTASSIUM SERUM 4.6 MEQ/L (3.5-5.1)
[2019-05-11 06:30] LABS: MONO # 2.1 10^3/uL (0.0-0.8)
[2019-05-11 08:00] VITALS: BP 111/58
--- NOTE | 2019-05-11 08:08 | REP ---
Clinical: Follow up pleural effusions. Technique: PA and lateral. Comparison: 05/10/2019. Findings: Right chest tube in stable position. No obvious pneumothorax. [id number] bilateral pleural effusions (right greater than left) along with bilateral superimposed infiltrates, atelectasis, and mass lesions remain essentially unchanged. No obvious new acute process. Impression: No significant change from prior examination. Electronically Signed by Travis Guardado MD 05/11/2019 08:00 A
--- NOTE | 2019-05-11 09:03 | RO ---
DATE OF PROCEDURE: 05/09/2019 PREPROCEDURE DIAGNOSIS: Retained and fibrinous pleural fusion. POSTPROCEDURE DIAGNOSIS: Retained and fibrinous pleural fusion. SURGEON: Dr. Mike Wiley. PROCEDURE: TPA pleurolysis. The PleurX catheter was accessed through a PleurX catheter access kit and 6 mg of TPA in 50 mL of normal saline was infused into the chest cavity. The PleurX catheter was capped and the patient was rolled from side to side to distribute the TPA. The patient will be drained in 6 hours. The patient tolerated the procedure well.
[2019-05-11] MEDS: DOCUSATE SODIUM 100 MG CAP PO SCH (09:12)
[2019-05-11] MEDS: MOM 30ML SUSPENSION UDC PO SCH (09:12)
[2019-05-11] MEDS: HEPARIN SOD (PORCINE) 5000 UNITS/ML VIAL SC SCH (09:12)
--- NOTE | 2019-05-11 10:46 | DSES ---
DATE OF ADMISSION: 05/09/2019 DATE OF DISCHARGE: 05/11/2019 DISCHARGE DIAGNOSES: 1. Stage IV renal cell carcinoma. 2. Malignant pleural effusion, recurrent, status post PleurX catheter. 3. Retained fibrinous fluid after PleurX catheter insertion. 4. Metastatic disease of renal carcinoma to the thoracic spine and pulmonary parenchyma. HOSPITAL COURSE: The patient is a 58-year-old white male who has known renal cell carcinoma of the right kidney, inoperable. He presented on 05/02/2019 with increasing shortness of breath and a large pleural effusion, at which point a PleurX catheter was placed; and over 24 hours, 5 liters of fluid was removed. He reappeared in the office for a followup checkup, noting that the drainage had markedly decreased but that he was again markedly short of breath. Chest x-ray revealed a large amount of retained pleural fluid once again. The PleurX catheter would not drain sufficiently. He was, therefore, admitted to the hospital where he underwent a TPA pleurolysis. The catheter was eventually drained of over 1350 mL. He had vast improvement of his chest x-ray. He is, therefore, being discharged today on his home medications, which include ProAir two puffs four times a day as needed shortness of breath, gabapentin 300 mg nightly as needed pain, Vicodin 10/325 as needed pain, omeprazole 20 mg every day, ondansetron 4 mg every 6 hours as needed nausea and vomiting. He will followup with me in 10 days with a chest x-ray. I have instructed him to drain himself every day. He will be following up with Dr. Wilson, oncology, additionally. His chest x-ray shows a marked improvement from his discharge x-ray, although he still has some small amount of retained fluid on today's x- ray prior to his drainage this morning on the right side. His discharge white count is 11.7 with a hemoglobin and hematocrit of 10.3 and 33.4 and a platelet count of 359. His electrolytes are essentially normal with a BUN and creatinine of 17 and 1.34. Glucose is 124. edited: 05/12/2019 0716 tkf DARNELL
== END 2019-05-11 11:05 | disposition home or self-care (01) | DRG 687 ==
LOC: M PCU 14:38
PROVIDERS: ADMIT Thoracic Surgery (Cardiothoracic Vascular Surgery); ATTEND Thoracic Surgery (Cardiothoracic Vascular Surgery)
PROC: 3E0L3GC Introduction of Other Therapeutic Substance into Pleural Cavity, Percutaneous Approach (ICD-10-PCS; principal; 2019-05-09)
DX: C64.1 Malignant neoplasm of right kidney, except renal pelvis (principal); J91.0 Malignant pleural effusion; C79.51 Secondary malignant neoplasm of bone; C78.00 Secondary malignant neoplasm of unspecified lung; M06.9 Rheumatoid arthritis, unspecified; Z87.891 Personal history of nicotine dependence

== ENCOUNTER → 2019-05-30 | Outpatient (CLI) | payer OTHER ==
[~2019-05-30] MED LIST changes: +GABA-843 PO
--- NOTE | 2019-05-30 08:50 | REPPI ---
Clinical: Malignant pleural effusion. Technique: PA and lateral. Comparison: 05/11/2019. Findings: Bilateral pleuroparenchymal changes primarily involving the mid to lower lung zones suggesting pleural effusions and atelectasis/infiltrates (right greater than left) again noted which may be mildly improved compared to prior examination. Opacity in the right perihilar region again identified. Previous left upper lobe opacity has improved. No obvious pneumothorax. Skeletal structures are intact. Right-sided chest tube in stable position. Impression: Bilateral pleuroparenchymal changes as described above may be slightly improved compared to 05/11/2019. Electronically Signed by Travis Guardado MD 05/30/2019 08:41 A
== END ==
LOC: M PLAIMG 08:25
PROVIDERS: ATTEND Thoracic Surgery (Cardiothoracic Vascular Surgery)
DX: C64.1 Malignant neoplasm of right kidney, except renal pelvis (principal); J91.0 Malignant pleural effusion

== ENCOUNTER → 2019-06-13 | Outpatient (CLI) | payer OTHER ==
[~2019-06-13] MED LIST changes: +NYST50SS SS
--- NOTE | 2019-06-14 12:02 | REPPI ---
Clinical: Malignant pleural effusion. Technique: PA and lateral. Comparison: 05/30/2019. Findings: [id number] right pleural effusion with mid to lower lobe consolidations increased from prior examination. Small left pleural effusion with basilar atelectasis and left upper lobe infiltrate increased from prior examination. Scattered bilateral air space disease suggested as well. No pneumothorax. Impression: Bilateral effusions and consolidations increased from prior examination. Electronically Signed by Travis Guardado MD 06/13/2019 08:19 P
== END ==
LOC: M PLALAB 15:35
PROVIDERS: ATTEND Thoracic Surgery (Cardiothoracic Vascular Surgery)
DX: C78.00 Secondary malignant neoplasm of unspecified lung (principal); J91.0 Malignant pleural effusion; J98.11 Atelectasis

== ENCOUNTER 2019-06-14 11:42 | Inpatient (IN) | payer OTHER ==
[~2019-06-14] VITALS: Ht 170.2 cm; Wt 63.3 kg
[~2019-06-14 11:42] MED LIST changes: -LORA0.5T11 PO; +LORA0.5T5 PO; -NYST50SS SS; +ONDA-83 PO; -ONDA4TAB5 PO
--- NOTE | 2019-06-14 12:48 | REP ---
CT CHEST WITHOUT CONTRAST: HISTORY: Short of breath. Malignant pleural effusion. Comparison chest CT study May 10, 2019. CT FINDINGS: There are numerous bilateral pulmonary parenchymal metastatic nodules and masses. The largest of these opacities is in the left apex where there is a 3.5 cm mass-like opacity. This has increased in transverse dimension from 2.8-3.1 cm. There are numerous nodules bilaterally. There is a small left pleural effusion. This is unchanged. There is a destructive left posterior rib lesion and chest wall mass again noted unchanged. There is a moderate to large amount of loculated pleural fluid on the right with extensive rind like visceral and parietal nodular pleural thickening. A right-sided PleurX catheter is in place in what appears to be good position in the posterior pleural space surrounded by some fluid. Its position is unchanged. The amount of pleural fluid appears somewhat improved from the prior study. The pleural thickening appears to have increased however. There is a large right renal mass again noted. Right-sided hydronephrosis is seen. Mediastinal adenopathy is observed . Several of these mediastinal lymph nodes have increased in size since the May 10, 2019 study. IMPRESSION: Right-sided PleurX catheter in good position. Multiloculated right effusion. Overall decreased amount of pleural fluid. Somewhat nodular visceral and parietal pleural thickening appears to have progressed in the right chest. There are several paratracheal lymph nodes which are larger today than on the May 10, 2019 study. Small left pleural effusion noted. Left chest wall mass, right renal mass, and numerous pulmonary metastatic lesions again noted essentially unchanged from most recent prior study. Electronically Signed by Prakash Garibay MD 06/14/2019 01:11 P
[2019-06-14 13:25] VITALS: BP 123/68
[2019-06-14] MEDS ORDERED: BISACODYL 10 MG SUPP PR PRN (13:30)
[2019-06-14] MEDS ORDERED: ACETAMINOPHEN TAB 650MG DOSE (2X325MG) PO PRN (13:30)
[2019-06-14] MEDS ORDERED: PERCOCET 5MG/325MG TAB PO PRN (13:30)
[2019-06-14] MEDS ORDERED: NORCO, ANEXSIA 5/325MG TABLET (HYDROcodone/ACETAMINOPHEN) PO PRN (13:30)
[2019-06-14] MEDS ORDERED: ALTEPLASE 2 MG/2 ML VIAL (J2997 PER 1MG) XX ONE (13:30)
[2019-06-14 14:00] VITALS: BP 136/75
[2019-06-14] MEDS: SLF 3 ML SYR IV SCH ×2 (14:00→20:29)
[2019-06-14] MEDS: LEVALBUTEROL 1.25 MG/0.5 ML CONCENTRATE NEB NEB SCH ×3 (14:00→23:39)
[2019-06-14 14:08] LABS: BASO % 0.4 % (0.0-1.0); EOS # 0.3 10^3/uL (0.0-0.5); EOS % 3.4 % (0.0-3.0); HEMATOCRIT 28.6 % (42.0-52.0); HEMOGLOBIN 8.9 g/dl (13.5-17.5); LYMPH # 0.8 10^3/uL (1.5-5.0); LYMPH % 9.5 % (24.0-44.0); MEAN CORPUSCULAR HEMOGLOBIN 31.1 pg (27.0-33.0); MEAN CORPUSCULAR HGB CONC 31.1 g/dl (32.0-36.5); MONO # 1.1 10^3/uL (0.0-0.8); MONO % 13.3 % (0.0-5.0); NEUTROPHILS # 5.8 10^3/uL (1.5-8.5); PLATELET COUNT, AUTOMATED 262 10^3/uL (150-450); RED BLOOD COUNT 2.86 10^6/uL (4.30-6.10)
[2019-06-14 14:10] VITALS: BP 123/71
--- NOTE | 2019-06-14 14:40 | HPE ---
DATE OF ADMISSION: 06/14/2019 HISTORY OF PRESENT ILLNESS: The patient is a 58-year-old white male with known renal cell metastatic carcinoma. His local disease was felt to be inoperable. He has metastases to his vertebral spine and to his lungs. At the end of April, he presented with increasing shortness of breath and a large pleural effusion, at which point a PleurX catheter was placed and over a period of 24 hours 5 liters of fluid was removed. He then reappeared towards the end of May with increasing shortness of breath and pleural effusion with the catheter that had stopped draining. He was admitted to the hospital where he underwent tPA pleurolysis with reduction of nearly 1300 mL. Today, he complains of increasing shortness of breath again with the catheter not draining for the past week. He does not complain of chest discomfort or chest pain, and there has been no fevers, chills or sweats. His mouth has hurt him over the last week. He has not been eating well. He does not know if he has lost weight but he thinks he has. There is no actual dysphagia. A chest x-ray yesterday showed him to have increased pleural effusion and a CT today confirmed that. PAST MEDICAL HISTORY: Rheumatoid arthritis treated with anti-inflammatories and immunosuppressants to include infliximab and methotrexate. PAST SURGICAL HISTORY: Tonsillectomy, right renal biopsy at [facility]. MEDICATIONS AT HOME: - ProAir HFA two puffs four times a day as needed shortness of breath - Neurontin 300 mg by mouth nightly and 300 mg three times a day as needed pain - Vicodin 10/325 every 4 hours as needed pain - omeprazole 20 mg every day - Zofran 4 mg by mouth every 6 hours as needed nausea and vomiting - Senna 1 tablet every day EXPOSURES: No exposure to tuberculosis. He has one dog at home. No cats or birds. TRAVEL HISTORY: He has traveled only as far as [place]. No travel history to the [facility] or [facility]. 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 No exposure to asbestos. HABITS: He has a 25 pack-year history of cigarettes. He smoked one-half pack per day. He occasionally uses alcohol. No illicit drugs but does use cannabis in various forms for pain and anxiety. REVIEW OF SYSTEMS: CONSTITUTIONAL: See history of present illness. EYES: Without diplopia, without amaurosis fugax, without prior jaundice. NOSE: Without epistaxis. MOUTH: Has his own teeth. RESPIRATORY: See history of present illness. CARDIAC: Complains of palpitations off and on. No history of myocardial infarctions. No intermittent claudication, but he has noted peripheral edema in the last 8 days. ABDOMEN: Has nausea but no vomiting. No diarrhea, constipation, melena, hematochezia, or hematemesis. GENITOURINARY (): Without dysuria or hematuria. ENDOCRINE: Without diabetes, without thyroid disease. NEUROLOGIC: Without paresthesias, paralyses or seizures. He has chronic back pain from metastases at T12. PSYCHIATRIC: Without pathologic anxieties, psychoses or depression. PHYSICAL EXAMINATION: Well-developed, malnourished white male rather cachectic and weak. Vital Signs: Temperature is 97.8, heart rate of 106, in sinus rhythm, respiratory rate of 18, without the use of accessory muscles, 93% saturated on room air, whose blood pressure is 120/68. Head: Normocephalic. Eyes: Pupils equal and reactive to light. Extraocular muscles intact. Sclerae nonicteric. Mouth shows the mucous membranes to be pink and moist. Lips and commissures without lesions. There is thrush. Neck is supple. There is no jugular venous distention. No subcutaneous emphysema. Trachea is midline. There is no thyromegaly or lymphadenopathy. Lungs show decreased breath sounds on the right lower hemithorax with a dull percussion on the right lower hemithorax. I hear no other wheezes, rhonchi or rales. Percussion note is full to the diaphragm on the left. Cardiac exam is without murmurs, clicks, gallops or rubs. I cannot feel his point of maximum impulse (PMI). S1 and S2 are normal. Abdomen is soft, nontender. Bowel sounds are positive. There is no hepatomegaly. No costovertebral angle (CVA) tenderness. Extremities shows 2+ pretibial edema. No calf tenderness. No differential swelling of the upper extremities. Skin is warm, dry and perfused without cyanosis or mottling, including that of the nail beds and the knees. Neurologic shows II-XII intact, along with gross motor and gross sensation intact. Gait is not tested. Psychiatric shows him to be awake and alert, oriented times three with appropriate mood and affect and conversational. Chemistries and complete blood count (CBC) are pending. Chest x-ray is discussed above and shows the pleural effusion on the right side with a large tumor on the left side. His CT scan done today confirms the large pleural effusion along with the numerous tumor implants throughout the lung, including one large one on the left side. IMPRESSION: 1. Malfunction of PleurX catheter with reaccumulation of pleural effusion. 2. Renal cell carcinoma. 3. Oral thrush. 4. Failure to thrive. 5. Malnutrition. PLAN AND DISCUSSION: I will admit him and do a tPA pleurolysis on PleurX catheter. If we can get working we can discharge fairly soon, maybe even tomorrow. DARNELL
[2019-06-14 15:17] LABS: BLOOD UREA NITROGEN 14 MG/DL (7-18); CALCIUM LEVEL 7.6 MG/DL (8.5-10.1); CARBON DIOXIDE LEVEL 26 MEQ/L (21-32); CHLORIDE LEVEL 98 MEQ/L (98-107); CREATININE FOR GFR 1.07 MG/DL (0.70-1.30); GLOMERULAR FILTRATION RATE > 60.0 (>56); GLUCOSE, FASTING 96 MG/DL (70-100); POTASSIUM SERUM 3.9 MEQ/L (3.5-5.1); SODIUM LEVEL 134 MEQ/L (136-145)
[2019-06-14] MEDS ORDERED: SLF 3 ML SYR IV PRN (15:30)
[2019-06-14 16:00] VITALS: BP 123/73
[2019-06-14] MEDS: PERCOCET 5MG/325MG TAB PO PRN ×2 (16:16→20:29)
--- NOTE | 2019-06-14 19:10 | REP ---
Chest x-ray: Two views. History: Pleural effusion. Status post Pleurx catheter drainage. Comparison chest x-ray May 11, 2019. Findings: A Pleurx drainage catheter is noted in place posterosuperiorly on the right. There is somewhat nodular pleural thickening along the lateral chest wall. There is fullness in the right hilar and mediastinal contour. Apical pleural thickening is noted on the right and this is a little more prominent than on the prior study. The right lateral pleural thickening is slightly increased. There is a hazy opacity in the left apex which is more prominent. There is some blunting of the left lateral pleural angle. Impression: Some progression of nodular pleural thickening on the right. Hazy mass-like opacity left apex may be slightly more prominent as well. There is mild blunting of the left lateral pleural angle. Electronically Signed by Prakash Garibay MD 06/14/2019 07:32 P
[2019-06-14 20:00] VITALS: BP 120/60
[2019-06-14] MEDS: HEPARIN SOD (PORCINE) 5000 UNITS/ML VIAL (J1644 PER 1000UNITS) SC SCH (20:29)
[2019-06-14] MEDS: DOCUSATE SODIUM 100 MG CAP PO SCH (20:30)
[2019-06-15] VITALS: BP 121/69
[2019-06-15] MEDS: PERCOCET 5MG/325MG TAB PO PRN ×3 (00:26→11:34)
[2019-06-15] MEDS: LEVALBUTEROL 1.25 MG/0.5 ML CONCENTRATE NEB NEB PRN ×2 (01:30→04:43)
[2019-06-15 04:00] VITALS: BP 130/73
[2019-06-15] MEDS: SLF 3 ML SYR IV SCH (04:45)
[2019-06-15] MEDS: LEVALBUTEROL 1.25 MG/0.5 ML CONCENTRATE NEB NEB SCH (07:11)
--- NOTE | 2019-06-15 07:55 | REP ---
Chest x-ray: Two views. History: Pleural effusion. Comparison study: June 14, 2019. Findings: A Pleurx drainage catheter remains in place on the right. There is nodular pleural thickening on the right enveloping the right lung. There is blood pleural angle blunting on the left. An ill-defined nodular opacities seen in the left apex and interstitial markings are diffusely prominent on the left. The findings are unchanged from the previous day's radiograph. Electronically Signed by Prakash Garibay MD 06/15/2019 07:46 A
[2019-06-15 08:00] VITALS: BP 119/63
[2019-06-15] MEDS: DOCUSATE SODIUM 100 MG CAP PO SCH (08:11)
[2019-06-15] MEDS: HEPARIN SOD (PORCINE) 5000 UNITS/ML VIAL (J1644 PER 1000UNITS) SC SCH (08:12)
[2019-06-15] MEDS ORDERED: MOM 30ML SUSPENSION UDC PO SCH (09:00)
[2019-06-15] MEDS ORDERED: PANTOPRAZOLE 40MG TAB (PROTONIX) PO SCH (09:00)
[2019-06-15] MEDS ORDERED: NYST50SS SS (11:29)
--- NOTE | 2019-06-15 11:44 | DSES ---
DATE OF ADMISSION: 06/14/2019 DATE OF DISCHARGE: 06/15/2019 DISCHARGE DIAGNOSES: 1. Loculated pleural effusion, PleurX catheter malfunction. 2. Renal cell carcinoma, metastatic to lungs and bone. 3. Thrush. 4. Failure to thrive. 5. Malnutrition. HOSPITAL COURSE: Patient is a 58-year-old white male with known metastatic renal cell carcinoma to bone and lung. In April he presented with a pleural effusion, which was drained with a PleurX catheter. Approximately a month later the effusion reaccumulated and a the PleurX catheter was cleared and tPA pleurolysis was undertaken. Yesterday he had been becoming more short of breath with increasing pleural effusion, and therefore once again, his catheter was once again cleared with tPA along with the remainder of the fibrinous exudate in the pleural space. This morning, he drained approximately 500 mL of blood fluid, which as noted is secondary to his tPA in combination with his pleural disease. He is being discharged today on his home medications, which include: - ProAir HFA two puffs four times a day as needed shortness of breath - Neurontin 300 mg by mouth at bedtime - Neurontin 300 mg three times a day as needed for pain - Vicodin 10/325 four times a day as needed for pain - omeprazole 20 mg daily - Zofran 4 mg every 6 hours as needed nausea and vomiting - senna one tablet three times a day - nystatin swish and swallow 5 mL four times a day I will see him back in the office in two weeks with a followup chest x-ray.
--- NOTE | 2019-06-15 12:09 | REP ---
Chest x-ray: Two views. 11:50 a.m. film. History: Pleural effusion. Comparison chest x-ray: Eight June 27, 2019 at 07:38 a.m. Findings: A right-sided Pleurx catheter is again noted. There is improvement noted in the interval and the right pleural effusion. There is blunting of the left lateral pleural angle unchanged. The left upper lobe opacities again seen unchanged. Nodular pleural thickening persists encasing the right lung. Impression: Improvement noted in the size of the right pleural effusion since the film done earlier today. Pleurx catheter remains in place. Electronically Signed by Prakash Garibay MD 06/15/2019 12:01 P
--- NOTE | 2019-07-07 17:34 | RO ---
DATE OF PROCEDURE: 06/14/2019 PREPROCEDURE DIAGNOSIS: Occlusion of PleurX catheter. POSTPROCEDURE DIAGNOSIS: Occlusion of PleurX catheter. OPERATIVE PROCEDURE: TPA pleurolysis of PleurX catheter. SURGEON: Mike Wiley MD [employer]: ANESTHESIA: DESCRIPTION OF PROCEDURE: PleurX catheter was infused with 6 mg of tPA and 50 mL of normal saline. The [id number] was capped and the patient was turned from side to side. He was later drained of 500 mL of pleural fluid. Patient tolerated the procedure well.
== END 2019-06-15 13:14 | disposition home or self-care (01) | DRG 920 ==
LOC: M RAD 11:42 → M PCU 13:18
PROVIDERS: ADMIT Thoracic Surgery (Cardiothoracic Vascular Surgery); ATTEND Thoracic Surgery (Cardiothoracic Vascular Surgery)
PROC: 3E0L3GC Introduction of Other Therapeutic Substance into Pleural Cavity, Percutaneous Approach (ICD-10-PCS; principal; 2019-06-14)
PROC: 0W9900Z Drainage of Right Pleural Cavity with Drainage Device, Open Approach (ICD-10-PCS; 2019-06-14)
DX: T85.618A Breakdown (mechanical) of other specified internal prosthetic devices, implants and grafts, initial encounter (principal); J91.0 Malignant pleural effusion; C64.9 Malignant neoplasm of unspecified kidney, except renal pelvis; C78.00 Secondary malignant neoplasm of unspecified lung; C79.51 Secondary malignant neoplasm of bone; B37.0 Candidal stomatitis; E46 Unspecified protein-calorie malnutrition; M06.9 Rheumatoid arthritis, unspecified; Z79.51 Long term (current) use of inhaled steroids; Z79.899 Other long term (current) drug therapy; R62.7 Adult failure to thrive; Z96.89 Presence of other specified functional implants

== ENCOUNTER → 2019-06-23 | Outpatient (CLI) | payer OTHER ==
[~2019-06-23] MED LIST changes: +FENT12DI8 TD; +LIDOCAINE 1% MDV 20ML VIAL As Ordered ONE; +MIDAZOLAM INJ 2 MG/2 ML VIAL (J2250) As Ordered ONE; +NYST50SS SS; +ceFAZolin 1GM INJ (J0690 PER 500MG) As Ordered ONE; +diphenhydrAMINE INJ 50MG/ML VIAL (J1200) As Ordered ONE; +fentaNYL 100 MCG/2 ML INJECTION (J3010) As Ordered ONE
--- NOTE | 2019-06-23 12:29 | IRHP ---
[facility] IR Pre-Procedure H & P General Date of Service: Jun 23, 2019 Procedure: Same Day Surgery Interval History and Physical I have seen the patient and reviewed last H & P performed within 30 days. There is no significant interval change. History of Present Illness Chief Complaint The patient is a 58-year-old male admitted with a reason for visit of Renal Cell Ca. PRE-PROCEDURE DIAGNOSIS: renal ca HEART: normal rate. LUNGS: normal breathing at rest. ASA Classification ASA Classification: II-Mild systemic disease Mallampati Score: II NPO: Yes Problems with prior sedation: No Obstructive Sleep Apnea: No Plan moderate sedation Allergies Coded Allergies: No Known Drug Allergies (Verified Allergy, Unknown, 11/22/18) Home Medications Scheduled Gabapentin (Neurontin), 300 MG PO QHS, (Reported) Nystatin (Nystatin Oral Susp), 5 ML SS QID Omeprazole (Omeprazole), 20 MG PO DAILY, (Reported) Senna (Senna Lax), 1 TAB PO TID, (Reported) Scheduled PRN Albuterol Sulfate (Proair Hfa), 2 PUFFS INH QID PRN for SHORTNESS OF BREATH, (Reported) Gabapentin (Gabapentin), 300 MG PO DAILY PRN for PAIN, (Reported) Hydrocodone/Acetaminophen (Hydrocodone-Acetamin 10-325 mg), 1 TAB PO QID PRN for PAIN, (Reported) Ondansetron HCl (Ondansetron HCl), 4 MG PO Q6H PRN for NAUSEA OR VOMITING, (Reported) VS, I&O, 24H, Fishbone Vital Signs/I&O Vital Signs Date Time Temp Pulse Resp B/P (MAP) Pulse Ox O2 Delivery O2 Flow Rate FiO2 06/23/19 12:08 99 103 20 92 LUCIANO RUSH MD Jun 23, 2019 12:29
--- NOTE | 2019-06-23 14:42 | POST-OPPD ---
Postoperative Procedure Note Date Of Procedure: Jun 23, 2019 Time Of Procedure: 14:41 PREOPERATIVE DIAGNOSIS: renal ca POSTOPERATIVE DIAGNOSIS: same FINDINGS: patent right ij PROCEDURE: right side port SURGEON: jerome ANESTHESIA: mod sed ESTIMATED BLOOD LOSS: < 5 ml COMPLICATIONS: none POSTOPERATIVE CONDITION: stable LUCIANO RUSH MD Jun 23, 2019 14:42
[2019-06-23 15:25] VITALS: BP 103/66
--- NOTE | 2019-06-24 07:14 | REP ---
IR Ultrasound and fluoroscopy-guided port placement. IR Ultrasound of the neck. IR Moderate sedation. Clinical information: Renal cancer. Physician: Dr. Dixon. Procedure: The patient was advised of the benefits, risks, and alternatives of the procedure and informed consent was obtained. A time-out was performed with verification of the patient's name, MRN, site of procedure and type of procedure to be performed. The patient was positioned in the supine position on the angiographic table. The site was prepped and draped in the usual sterile fashion. Moderate sedation was performed by the physician including the presence of an independent trained observer who assisted and monitored the patient's level of consciousness and physiologic status. Following the administration of fentanyl and Versed , the physician spent 45 minutes of continuous face to face time with the patient. Ultrasound of the neck reveals a patent and compressible right internal jugular vein. A diet kitchen cook radiograph reveals scalloped pulmonary opacities, mediastinal and hilar adenopathy and increased interstitial markings. Right-sided chest tube. The neck and anterior chest wall were anesthetized with lidocaine. The right internal jugular vein was accessed using a microintroducer needle under ultrasound guidance, via a lateral approach. An 018 wire was advanced into the superior vena cava, the needle was removed and a microsheath was placed. An Amplatz wire was then passed into the inferior vena cava. An incision at the internal jugular vein access site and anterior chest wall were made using a scalpel. An incision was made at the anterior chest wall. A small pocket was created using a combination of blunt and sharp dissection. A tunneling device was then used to pass the catheter from the pocket to the neck puncture site. An 8-[place] Angio Tu Closet Mi Closet Smart power port was then positioned in the pocket. The catheter was then measured and cut. The introducer sheath was exchanged for a peel-away sheath. The catheter was passed through the peel-away sheath into the internal jugular vein and the peel-away sheath was removed. The port tip was positioned at the cavoatrial junction. The port was then accessed with a Avendaño needle. The port flushes and aspirates well. The puncture site in the neck was closed. The chest wall incision was then closed with 2-0 Vicryl and 4-0 Monocryl. Glue and Steri-Strips were applied. A sterile dressing was then applied. The patient tolerated the procedure well and was returned to the PRU in stable condition. Estimated blood loss: <5 ml. Complications: None. Conclusion: 1. Successful placement of an 8-[place] Angio dynamics Smart power port via the right internal jugular vein. The port is ready for immediate use. 2. Patient to follow up in IR clinic in 2 weeks. Thank you for this referral. Electronically Signed by Sally Dixon MD 06/24/2019 07:13 A
== END ==
LOC: M IRPRO 11:50
PROVIDERS: ATTEND Internal Medicine Medical Oncology
DX: C64.9 Malignant neoplasm of unspecified kidney, except renal pelvis (principal); Z79.899 Other long term (current) drug therapy
CPT/HCPCS: 36561; 99152; 99153; C1769; C1788; C1894; J0690; J1200; J2250; J3010

== ENCOUNTER 2019-06-30 12:38 | Outpatient (RCR) | payer OTHER ==
[2018-11-22 11:08] VITALS: BP 143/85
[2018-11-22 12:50] LABS: HEMATOCRIT 40.1 % (42.0-52.0); HEMOGLOBIN 13.1 g/dl (13.5-17.5); LYMPH % 17.5 % (24.0-44.0); MEAN CORPUSCULAR HEMOGLOBIN 30.2 pg (27.0-33.0); MEAN CORPUSCULAR HGB CONC 32.7 g/dl (32.0-36.5); MEAN CORPUSCULAR VOLUME 92.3 fl (80.0-96.0); NEUTROPHILS # 6.4 10^3/uL (1.8-7.7); NEUTROPHILS % 74.1 % (36.0-66.0); RED BLOOD COUNT 4.34 10^6/uL (4.30-6.10); WHITE BLOOD COUNT 8.7 10^3/uL (4.0-10.0)
[2018-11-22 14:01] LABS: ALBUMIN 4.7 GM/DL (3.5-5.2); BLOOD UREA NITROGEN 13 MG/DL (6-20); CARBON DIOXIDE LEVEL 27 MEQ/L (23-31); CHLORIDE LEVEL 101 MMOL/L (98-107); CREATININE FOR GFR 1.06 MG/DL (0.90-1.30); GLOMERULAR FILTRATION RATE > 60.0 (>56); GLUCOSE, FASTING 95 MG/DL (70-105); POTASSIUM SERUM 4.7 MMOL/L (3.5-5.1); SODIUM LEVEL 138 MMOL/L (135-145); TOTAL PROTEIN 7.3 GM/DL (6.4-8.3)
[2018-11-22 14:07] LABS: CALCIUM LEVEL 10.7 MG/DL (8.5-10.2)
--- NOTE | 2018-11-23 13:42 | MEDONC ---
MEDICAL ONCOLOGY INITIAL VISIT DATE OF SERVICE: 11/22/2018 REFERRING PHYSICIAN: Carlos Bruno MD, [facility]. DIAGNOSIS: Stage IV, [id number] renal cell carcinoma, intermediate risk based on dominant right renal mass with renal vein involvement, bone metastases, possible pulmonary metastases, hypocalcemia, and bulky disease requiring early treatment at presentation. 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 Most recently abatacept (Orencia) held since October due to abdominal symptoms. His current illness story begins in when he developed back pain. He sought help at urgent care, was given some muscle relaxants. It eventually resolved. In August again, he developed some GI discomfort, sought medical attention, but this resolved. In October, he presented to urgent care with bilateral flank pain, abdominal discomfort, and some weight loss totaling approximately 20 pounds over 1 year with 10 pounds in the recent months. An abdomen and pelvis CT was performed, which showed a very large right renal mass encasing the right renal artery, invading the right renal vein, possibly invading the inferior vena cava with multiple satellite perirenal nodules up to 1.9 cm, moderate right hydronephrosis, multiple pulmonary nodules subcentimeter, a large 10th rib and T12 or T11 vertebral body metastasis. Gus immediately took himself to [facility], where he was seen by Carlos Bruno MD, and also evaluated by Hermes Bacno MD, of surgery. He was deemed not a surgical candidate for cytoreductive therapy. His workup at [facility] included a renal mass biopsy confirming renal cell carcinoma, review of the October 12 CT scan done locally which at [facility] showed a 10.6 cm x 7.2 cm right renal mass invading the right renal vein, possibly IVC, moderate right hydronephrosis with multiple satellite tumors throughout the perirenal space, a large confluent necrotic suprarenal mass inseparable from adrenal and underside of right hepatic lobe measuring 8.4 x 5.5 cm, a lytic expansile lesion in the posterior 12th rib (sic) with soft tissue component extending to the chest wall, and a T12 anterior vertebral body lesion with cortical breakthrough and extra OCS extension. On chest CT, innumerable pulmonary nodules seen bilaterally, likely metastases, largest 9 mm. A bone scan 11/10/2018 confirmed left 10th rib and T12 vertebral metastases. Testicular ultrasound was negative. Brain MRI was negative. Labs showed intact renal function. Creatinine 1.0, GFR greater than 60, LDH 184, albumin 4.7, calcium 11.2, normal CBC and differential. Based on the overall findings detailed above and his history of autoimmune disease requiring immunomodulatory therapy, Dr. Bruno recommended TKI treatment favoring Cabozantinib. Because of the distance to travel, Gus would like to have his treatment locally. Gus is relying on hydrocodone 5/325 q.8 hours for pain relief, not taking more but finding it increasingly difficult to control his flank pain with this. 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 He is able to do chores and so forth at home when his pain is controlled. He follows with Dr. Adamson at [facility], and Iraida Bailey is his PCP. Dr. Bruno called. We spoke a few days ago, and his recommendation was also for early spinal MRI and radiation oncology evaluation based on near-epidural involvement of the T11/12 vertebral metastasis. Gus acknowledges significant low thoracic midback pain, which is now constant. He denies focal weakness of any arm and leg, focal leg swelling, shortness of breath, cough, chest pain, fevers, or chills but acknowledges an approximate 20-pound weight loss, decreased appetite in the last 6-12 months. MEDICATION LIST: reviewed PAST MEDICAL HISTORY: Rheumatoid arthritis treated in the past with infliximab and methotrexate. Currently, most recently on abatacept held since at least October. Followed at [facility] by Dr. Adamson. GI tract polyps in the past. PAST SURGICAL HISTORY: Tonsillectomy, cyst removal, right renal biopsy at [facility] recently. SOCIAL HISTORY: The patient is , lives with his . 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 Current 1/4-lnzx-rtg-day smoker. Approximate 00-vklf-ftle history. Rare to no alcohol. FAMILY HISTORY: The patient today acknowledges father with lung cancer. Mother with breast cancer. The [facility] history is more extensive, including the following: Father mesothelioma at age 44, mother breast cancer age 71, maternal aunt meningioma in her 60s, maternal uncle colon cancer late 70s, early 80s. Paternal uncle lung cancer in his 70s. REVIEW OF SYSTEMS: Pertinent positives and negatives as noted above. Remainder of 12-system review negative. PHYSICAL EXAMINATION: Weight 74 kg, height 5 feet 7 inches, BMI 26, temperature 98.2, blood pressure 143/85, heart rate 86, respiratory rate 20, O2 sat 98%. The patient is a [id number], well-groomed youthful older man in no distress. Respiratory: Clear lungs to auscultation bilaterally anteriorly and posteriorly. No wheezes, rales, rhonchi. Cardiac: S1, S2, regular rate and rhythm. No murmur. No gallop. Abdomen: Quite tender. Mild distention of the right upper and midquadrant area. No carmine rebound tenderness. No left upper or lower quadrant tenderness. No ecchymoses. Extremities: No edema or asymmetry. Lymph nodes: No palpable submandibular, cervical, supraclavicular, or axillary adenopathy bilaterally. Musculoskeletal: Tenderness to point palpation and percussion, approximate T10 through 12 area. No elicitable or evocable rib tenderness. LABS: WBC 8.7, hemoglobin 13, hematocrit 40, platelets 150. Differential normal. Electrolytes normal. Renal function normal. Creatinine 1.06, GFR greater than 60, calcium 10.7, albumin 4.7 (correcting calcium). IMPRESSION: [id number] stage IV renal cell carcinoma, low to intermediate risk based on need for early intervention and previously at least, hypercalcemia, with pulmonary and bone metastases, bulky large right renal mass with perirenal conglomerate lymphadenopathy, renal vein invasion, possible right adrenal replacement, left 10th rib and anterior T12 vertebral metastases with vertebral cortical destruction on CT. Brain imaging negative for metastases. ECOG performance status 0-1. Significant pain on current pain regimen. Current smoker. Long-term history of immunomodulating/disease modulating treatment for rheumatoid arthritis. The patient's arthritis symptoms involve generalized joint aches, hand and wrist stiffness, hand and finger stiffness. He reports these symptoms have been under excellent control for years. Overall, because of autoimmune disease history, immunotherapy to be avoided at least up front. The patient is a good candidate for TKI therapy. I agree with Dr. Bruno that Cabozantinib is probably optimal choice. I reviewed risks, benefits, side effects, and schedule with Mr. Gale, including but not limited to hypertension, fatigue, hand-foot syndrome, lab abnormalities and electrolyte abnormalities such as hypocalcemia, hypophosphatemia, hyperglycemia, hypomagnesemia, and so forth, diarrhea, stomatitis, anorexia, dysgeusia, vomiting, transaminitis, arthralgias, limb pain, muscle pain, hypotension, peripheral neuropathy. The dose is 60 mg daily. I also explained the 5 year prognosis of metastatic renal cell carcinoma as poor, on the order of 10-15 percent, with goal of therapy symptom palliation, and possibly improving time to progression and overall survivial by 6-12 months. PLAN 1. Thoracic lumbar spine MRI with and without contrast, rule out impending cord-threatening lesion. 2. KEVIN radiation/oncology referral so that the patient can at least be plugged in if not begin treatment. 3. Dr. Bruno' office had already ordered Cabozantinib; and, therefore, the insurance preauthorization started at [facility]. Our health insurance agent will be back tomorrow, and the first thing will get her involved in establishing whether this drug has been preauthorized and machine pecan picker the ball with it. I explained the specialty pharmacy phenomenon which Gus is familiar with due to his rheumatoid arthritis drug. 4. Return to clinic following MRI. At that point, we will go forward with treatment or radiation, depending on findings. 5. suggested patient double his current prn dose of vicodin and report if this sufficiently helps; I'll renew this as needed. Electronically Signed by Alesha Wilson MD 11/23/2018 06:12 P DD: Alesha Wilson MD 11/22/2018 06:15 P DT: aml 11/23/2018 12:31 P CC: MD Hermes Browne MD, FACS Iraida Bailey, PERICO Bruno MD
[2018-11-30 08:09] VITALS: BP 151/90
--- NOTE | 2018-12-01 10:45 | MEDONC ---
MEDICAL ONCOLOGY FOLLOWUP DATE OF SERVICE: 11/30/2018 DIAGNOSES: 1. Stage IV, G4uSiH1 clear cell renal cell carcinoma, intermediate risk with 10.6 cm right renal mass invading right renal vein, bone lesions involving T12 vertebra, left posterior 11th/12th ribs, diagnosed October 2018, deemed nonoperative candidate for cytoreductive surgery, now on first-line palliative treatment with cabozantinib. 2. Cancer-related pain, focused on midback, currently on hydrocodone 5/325 1-2 tablets q. 6-8 hours. OTHER MEDICAL PROBLEMS OF CLINICAL IMPORT: Rheumatoid arthritis, on immune-modifying agents for many years. Currently on abatacept, held since October 2018, followed at [facility] by Dr. Adamson. INTERVAL HISTORY: Gus is here for followup of spine MRI. His chief concern is pain and getting a refill on pain prescriptions.. I told him to double his hydrocodone as a trial to see if that would help. It did apparently. Over the weekend, he called for a refill and was prescribed oxycodone which he felt was less effective. He is quite focused on pain, not asking questions about his spine MRI. Lumbar MRI 11/26/2018, however, shows a large T12 metastasis with pathologic partial collapse 25% retropulsion and epidural extension producing mild central canal stenosis. No cord compression yet. Progressed versus October 12, 2018. He is already set up to see radiation oncology today. I recommended he start low-dose dexamethasone 4 mg b.i.d. to help with any regional swelling which might be contributing to discopathic pain related to the metastatic site. Gus reverts to the issue of pain control. Reviewing his Internet System for Tracking Over-Prescribing (I-STOP), he has been on some sort of opioid for about 6 weeks at this point. After extensive discussion and his request to go back on some sort of Vicodin-type drug, he would rather avoid the acetaminophen part of it. I recommended hydrocodone/acetaminophen 7.5/325 with a 14-day supply to see how that helped his pain. 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 It is just that cannot sleep because of the pain. I cautioned against using pain medicine as a sleep aid. On the other hand, I understand he needs pain control related to his cancer. I recommended he try the current dose and give me feedback. I also recommended he pay close attention to the difference between mild and moderate and severe pain, using the opioids for moderate to severe and Tylenol or Motrin/NSAIDs for mild pain. IMPRESSION: Oligometastatic clear cell renal cell carcinoma diagnosed October 2018 with large right renal mass perirenal lymphadenopathy and implants, possible renal vein invasion, T12 and left posterior rib 10/11 involvement, significant midthoracic pain, and 25% vertebral collapse of T12 on current MRI. No cord compression but epidural extension now present with mild central canal stenosis. ECOG performance status 1, limited by pain. Currently on cabozantinib begun 11/23/2018, 60 mg daily. PLAN: 1. Dexamethasone 4 mg b.i.d. 2. Radiation oncology referral today for palliative radiation. 3. Hydrocodone/acetaminophen 7.5 mg q. 8 hours p.r.n. severe pain. 14-day supply. Will follow closely for evidence if this is insufficient. At the same time once radiation underway, we should look forward to de-escalating pain medication. 4. The patient is also perseverating on Family Medical Leave Act (FMLA) paperwork, which he brought to our front maker lock[employer]ch, and he will inquire out there today regarding that. TIME STATEMENT: Long discussion today involving more than 50% of the visit which occurred for 40 minutes [id number] with the patient, more than 50% involved in discussing the cabozantinib, MRI findings, radiation for palliation, and pain management as detailed above. Electronically Signed by Alesha Wilson MD 12/01/2018 06:40 P DD: Alesha Wilson MD 11/30/2018 04:29 P DT: [email or web address] 12/01/2018 10:18 A CC: MD Hermes Browne MD, FACS Iraida Bailey, PERICO Bruno MD
[2018-12-16 14:51] LABS: HEMATOCRIT 42.3 % (42.0-52.0); HEMOGLOBIN 14.2 g/dl (13.5-17.5); LYMPH % 15.4 % (24.0-44.0); MEAN CORPUSCULAR HEMOGLOBIN 29.8 pg (27.0-33.0); MEAN CORPUSCULAR HGB CONC 33.6 g/dl (32.0-36.5); MEAN CORPUSCULAR VOLUME 88.7 fl (80.0-96.0); NEUTROPHILS % 78.7 % (36.0-66.0); RED BLOOD COUNT 4.77 10^6/uL (4.30-6.10); WHITE BLOOD COUNT 8.9 10^3/uL (4.0-10.0)
[2018-12-16 15:00] VITALS: BP 144/93
[2018-12-16 15:15] LABS: ALBUMIN 4.1 GM/DL (3.5-5.2); BLOOD UREA NITROGEN 14 MG/DL (6-20); CARBON DIOXIDE LEVEL 28 MEQ/L (23-31); CHLORIDE LEVEL 104 MMOL/L (98-107); CREATININE FOR GFR 0.83 MG/DL (0.90-1.30); GLUCOSE, FASTING 96 MG/DL (70-105); SODIUM LEVEL 138 MMOL/L (135-145); TOTAL PROTEIN 6.9 GM/DL (6.4-8.3)
[2018-12-16 15:16] LABS: GLOMERULAR FILTRATION RATE > 60.0 (>56)
--- NOTE | 2018-12-18 12:25 | MEDONC ---
MEDICAL ONCOLOGY FOLLOWUP DATE OF SERVICE: 12/16/2018 DIAGNOSES: 1. Stage IV, [id number] clear cell renal cell carcinoma, intermediate risk with 10.6 cm right renal mass invading right renal vein, skeletal involvement with large T12 focus, left eleventh and twelfth rib foci diagnosed October 2018. Nonoperative candidate for cytoreductive surgery. On first-line palliative Cabozantinib and now status post palliative radiation. 2. Cancer related pain, focus on mid back improved. On hydrocodone 5/325 1-2 tablets q. 6-8 hours p.r.n. diminishing use over the last few weeks. TREATMENT HISTORY: Palliative radiation to T12 epidural focus 3000 cGy completed 12/15/2018. CURRENT THERAPY: Cabozantinib 60 mg p.o. daily begun 11/25/2018. INTERVAL HISTORY: Gus is feeling better. He is not using the hydrocodone much anymore. He had a couple of bad days but is doing much better. He has a lot of fatigue and is noticing esophageal discomfort. He has not used any magic mouth wash and has no prescription for same. He has taken some time off from work. REVIEW OF SYSTEMS: In addition to pertinent positives and negative, he has no new fevers, chills, sweats. His appetite is much improved. He is eating much better. Energy is a little bit better. Back pain is much reduced and the palpable fullness appreciable on initial exam in the left mid low back area is resolved. Remainder of 12 system review negative. PHYSICAL EXAMINATION: Weight 73 kg, temperature 97, blood pressure 144/93, heart rate 72, respiratory 18, O2 sat 97%. Patient is a well-groomed, normal weight gentleman in no distress. Respiratory: Clear lungs little. No wheezes or rales. Cardiac: S1, S2 regular rate and rhythm. No murmur, rub or gallop. Abdomen: Soft, nontender, nondistended. No palpable mass. Extremities: No edema. Lymph nodes: No palpable submandibular, cervical, supraclavicular or axillary adenopathy bilaterally. Musculoskeletal: Mild tenderness in the mid back region but not as tender as on initial exam. LABORATORY DATA: WBC 8.9, hemoglobin 14, hematocrit 42, platelets 194. Electrolytes normal. Liver functions normal. LDH 194. IMPRESSION: Stage IV clear cell renal cell carcinoma, intermediate risk with dominant right renal mass unresected, skeletal vertebral and rib lesions, now status post palliative radiation to T12 on Cabozantinib first line treatment. ECOG performance status 1. Grade 1 to 2 fatigue, grade 1 to 2 radiation esophagitis. PLAN: 1. Magic mouth wash up to four times daily for esophagitis. 2. I encourage drinking and eating to prevent stricture and stiffening of the esophagus. 3. Continue Cabozantinib. 4. 4 to 5-week interval followup with CBC, CMP, LDH. 5. Plan restaging after completing two full cycles of treatment approximately late January barring major new symptoms of progression. Electronically Signed by Alesha Wilson MD 12/20/2018 03:20 P DD: Alesha Wilson MD 12/16/2018 03:56 P DT: [email or web address] 12/18/2018 12:03 P CC: MD Hermes Browne MD, FACS PERICO Banerjee MD
--- NOTE | 2018-12-22 18:48 | MEDONCTEEN ---
Telephone Encounter Recd call from the ER at [facility] around 6:21 pm, that patient came in this afternoon with sharp pain chest, high up. Has underlying history of mRCC. CTA done today, suggests no evidence of PE. T2 metastases appears to be in the region of the pain. No sensory level or focal neuro deficit in the area, per ER Physician,---- specifically addressed. ER physician was going to address the pain, temporarily till patient seen at [facility]. Will update Dr. Alesha Wilson who follows Mr. Gale closely from Oncology standpoint, of above. Dr. Wilson had just done an MRI of the Thoracic Spine 11/30/2018, in fact, when again the T2 met was noted, but patient was not symptomatic from it then. Patient is also known to Dr. Tran, who will also be appraised. (Cecilia KENNEY) Locums. cc: Dr. Iraida Bailey PCP Dr. Alesha Wilson. Dr. Halle Tran. ABDIRAHMAN REDMOND MD Dec 22, 2018 18:48
[2019-01-17 09:40] LABS: HEMATOCRIT 43.3 % (42.0-52.0); HEMOGLOBIN 14.7 g/dl (13.5-17.5); LYMPH % 18.6 % (24.0-44.0); MEAN CORPUSCULAR HEMOGLOBIN 30.3 pg (27.0-33.0); MEAN CORPUSCULAR HGB CONC 33.9 g/dl (32.0-36.5); MEAN CORPUSCULAR VOLUME 89.3 fl (80.0-96.0); NEUTROPHILS # 4.6 10^3/uL (1.8-7.7); NEUTROPHILS % 71.4 % (36.0-66.0); RED BLOOD COUNT 4.85 10^6/uL (4.30-6.10); WHITE BLOOD COUNT 6.4 10^3/uL (4.0-10.0)
[2019-01-17 10:33] LABS: ALBUMIN 3.7 GM/DL (3.2-5.2); ALT/SGPT 63 U/L (12-78); BILIRUBIN,TOTAL 0.4 MG/DL (0.2-1.0); BLOOD UREA NITROGEN 13 MG/DL (7-18); CARBON DIOXIDE LEVEL 30 MEQ/L (21-32); CHLORIDE LEVEL 106 MEQ/L (98-107); CREATININE FOR GFR 0.84 MG/DL (0.70-1.30); GLOMERULAR FILTRATION RATE > 60.0 (>56); GLUCOSE, FASTING 98 MG/DL (70-100); POTASSIUM SERUM 4.1 MEQ/L (3.5-5.1); SODIUM LEVEL 142 MEQ/L (136-145); TOTAL PROTEIN 6.9 GM/DL (6.4-8.2)
[2019-01-17 11:42] LABS: LDH LACTATE DEHYDROGENASE 319 U/L (87-241)
[2019-01-18 09:05] VITALS: BP 145/99
--- NOTE | 2019-01-20 19:27 | MEDONC ---
MEDICAL ONCOLOGY FOLLOWUP: DATE OF SERVICE: 01/18/2019 DIAGNOSIS: 1. 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 On first-line palliative cabozantinib and status post palliative RT. 2. Cancer related pain, partially improved following radiation complains now of exertional back pain in the thoracic and lumbar area on hydrocodone 5/325 1-2 tablets every 6 to 8 hours as needed. TREATMENT HISTORY: Palliative RT to T12 epidural mass 3000 centigray completed 12/15/2018. CURRENT THERAPY: Cabozantinib 60 mg daily begun 11/25/2018 INTERVAL HISTORY: Gus is here for followup. 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 The conversation revolves around his concerns about the risk to his back of injury if he does any heavy lifting versus his strong desire to remain fully employed and continue that way. He asked if this could be considered month by month. My concern carefully and explicitly expressed to him and his is that given ongoing pain not completely rely resolved with current pain medications and following radiation. Can be active cancer pain for which either additional palliative medications should be offered, opioid or non opioid; he has a history of rheumatoid arthritis long-term on immunosuppressive drugs. These were stopped at the time of his diagnosis as he started cabozantinib. There is great concern with reintroducing them as immunosuppressive drugs can increase the risk for a malignancy and could be counterproductive. 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 I invited him to bring paper work from work for us to fill out if he needs further time off. Our conversation continually derailed because Gus is anxious about taking time off from work at the same time acknowledging pain and expressed a desire to be able to work the next 5-10 years. I reminded Gus he has stage IV renal cell carcinoma with somewhat extensive disease involvement for which his life expectancy is likely less than 5 years though in the very optimistic terms if he has good response sequentially to various drugs could extend that long but this is not highly likely. His quality of life is important and this include working. I acknowledged. However to offset the risk of a metastatic bone lesion related injury an optimal treatment regimen would include a bone modifying agent. With this he needs dental evaluation either on denosumab or Zometa as he has not had dental care for many years. This introduced another anxiety for Gus. So finally expressed willingness to see a dentist. REVIEW OF SYSTEMS: Gus acknowledges some hand and foot skin irritation and I recommended he use bag balm or udderly smooth, evaluating his feet and hands, it appears he has some grade 1 hand-foot syndrome is common with cabozantinib. Not currently a reason to decrease the dose or stop the medication typically symptom management is the first step. He denies new shortness of breath, new headache or visual disturbance, new abdominal pain. He is finding it easier to lie and his side continues to have exertional related back pain. His joints feel stiff but he has no swelling of the joints. No new rashes, no cough, no headache, visual disturbance. Remainder of 12 system review negative. PHYSICAL EXAMINATION: eight 71 kg, temperature 98, blood pressure 145/99, heart rate 79, respiratory 18, O2 sat. 98%. Respiratory: Clear lungs to auscultation with no wheezes or rales. Cardiac: S1-S2 regular rate and rhythm. No murmur nor gallop. Abdomen is soft, nontender, no palpable mass. Extremities: No edema in the calves and no asymmetry. There is erythema involving the anterior soles of both feet and toe pads. Mild erythema involving the palms and fingers, some fingernail vazquez the patient attributes to tanning spray he put on his legs. LABORATORY DATA: WBC 6.4, hemoglobin 14, hematocrit 43, platelets 176, LDH 319. Electrolytes, liver functions renal function normal. IMPRESSION: 1. 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 2. ECOG performance status one limited by persistent back pain. 3. 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 PLAN: 1. Continue cabozantinib. 2. Use bag balm or udderly smooth up to three times a day to hands and feet to for hand-foot syndrome. 3. Palliative care referral for to help manage and possibly multifactorial pain. 4. Social work referral at palliative care to help patient sort through issues related to accepting his diagnosis, prognosis, and quality of life related choices related to work; 5. I strongly recommended Gus decrease heavy lifting type work due to the risk of metastatic skeletal fracture. 6. Gus will pursue dental care right away to make sure there are no teeth that need extraction prior to starting denosumab 7. Plan denosumab start provisionally for 4 weeks from now at time of followup; in meantime restaging CT chest, abdomen and pelvis with by mouth and IV contrast as well as PET scan to fully characterize extent of disease. Time statement 40 minutes [id number] with the patient more than 50% involved in discussing the patient's concerns related to work, hand-foot syndrome and treatment, restaging, skeletal disease involvement, risks, benefits of denosumab need for dental evaluation. Electronically Signed by Alesha Wilson MD 01/21/2019 05:27 P DD: Alesha Wilson MD 01/18/2019 04:33 P DT: sneha 01/20/2019 06:53 P CC: MD Iraida Rome, PERICO
[2019-02-15 08:49] LABS: HEMATOCRIT 44.2 % (42.0-52.0); HEMOGLOBIN 15.1 g/dl (13.5-17.5); LYMPH % 17.6 % (24.0-44.0); MEAN CORPUSCULAR HEMOGLOBIN 32.9 pg (27.0-33.0); MEAN CORPUSCULAR HGB CONC 34.2 g/dl (32.0-36.5); MEAN CORPUSCULAR VOLUME 96.3 fl (80.0-96.0); NEUTROPHILS # 4.7 10^3/uL (1.8-7.7); NEUTROPHILS % 72.4 % (36.0-66.0); RED BLOOD COUNT 4.59 10^6/uL (4.30-6.10); WHITE BLOOD COUNT 6.5 10^3/uL (4.0-10.0)
[2019-02-15 09:09] VITALS: BP 138/95
[2019-02-15 09:22] LABS: ALBUMIN 4.5 GM/DL (3.5-5.2); BLOOD UREA NITROGEN 13 MG/DL (6-20); CARBON DIOXIDE LEVEL 28 MEQ/L (23-31); CHLORIDE LEVEL 102 MMOL/L (98-107); CREATININE FOR GFR 0.78 MG/DL (0.90-1.30); GLOMERULAR FILTRATION RATE > 60.0 (>56); GLUCOSE, FASTING 98 MG/DL (70-105); SODIUM LEVEL 139 MMOL/L (135-145); TOTAL PROTEIN 7.5 GM/DL (6.4-8.3)
--- NOTE | 2019-02-16 08:05 | MEDONC ---
MEDICAL ONCOLOGY FOLLOWUP DATE OF SERVICE: 02/15/2019 DIAGNOSIS: 1. Stage 4, [id number] clear cell renal cell carcinoma, intermediate risk with 10.6 cm right renal mass, nonoperative candidate, skeletal involvement large T12 mass status post radiation, multi focal thoracic vertebral lesions, left iliac involvement diagnosed October 2018. On first-line palliative cabozantinib started late November; completed palliative RT to T12 on 12/15/2018, denosumab held for dental care. 2. Cancer related pain involving back in the setting of long-term history of autoimmune arthritis off current immunosuppressives. Pain is poly migratory involving left low back, right low back, right hip. TREATMENT HISTORY: Palliative radiation to T12 epidural mass 3000 cGy completed 12/15/2018. CURRENT THERAPY: Cabozantinib 60 mg daily begun 11/25/2018. INTERVAL HISTORY: Gus is here for followup of restaging scans and for clinical reevaluation. He had chest, abdomen and pelvis CTs and PET done 02/08/2019. In general, they show reduction in the size of the renal and perirenal soft tissue masses and left rib focus with slight progression of size of T12 focus with minimal sclerotic changes and progression of a left iliac focus which has not yet been treated with radiation. The PET scan corresponds to the sites noted on CT. I reviewed the images with Gus and his . They asked many questions. We went over the reports detail by detail and the images also in a detailed fashion. What is unclear is whether the T12 increase in size relates to post-treatment changes or not. Gus's pain he describes as low back, right and left, emanating from the center. This could be from the T12 lesion; alternatively, it could be a little atypical pain radiating from the left iliac region lesion which has clearly progressed between July, and now. OTHER ISSUES: Gus saw the dentist and had cavities filled. He was referred to oral surgery for a problematic front tooth for which there is apparently an infected root, but said he has not made an appointment yet because he does not want to go through with that. He wants to get started on denosumab right away. I explained again the purpose of managing any problematic teeth that possibly will require extraction is to avoid the risk of being on denosumab and then having a tooth extracted. Meanwhile, his cabozantinib also poses the risk of osteonecrosis of the jaw. I spent quite a bit of time explaining these issues to Gus, explaining the principal of minimizing risk of permanent long-term complications which would make further denosumab impossible to give in favor of short-term hold of cabozantinib in order to have a tooth taken care of. Gus went back and forth unsure whether he wanted to do this and ultimately agreed he would make an appointment to see Dr. Jaramillo. He has been prescribed a combination of gabapentin and hydrocodone/acetaminophen for his pain. He is not taking full months hydrocodone/acetaminophen, but still having pain. We again talked about optimal use of his pain medications. PHYSICAL EXAMINATION: Weight 69 kg, net approximate 5 kg decrease since November. Temperature and vital signs normal. Remainder of exam deferred today in favor of extended conversation regarding imaging and various issues as described above. LABORATORY DATA: WBC 6.4, hemoglobin 15, hematocrit 44, platelets 163. Liver functions and renal function normal. BUN and creatinine normal. Alk phos normal. IMPRESSION: Metastatic clear cell renal cell carcinoma with dominant right locally advanced renal mass, bone involvement including left iliac and T12 rib lesions, other vertebral lesions, with mild to moderate improvement of back symptoms after T12 radiation, now with migratory low back symptoms possibly related to progression at the left iliac hip. Holding start of denosumab given current risk of ONJ on cabozantinib, need for evaluation of a front tooth which may have an infected root and possibly needed extraction. Appropriate for radiation oncology referral for management of left iliac site. PLAN: 1. Continue cabozantinib. 2. Radiation oncology referral for palliative radiation to left iliac as appropriate. 3. The patient will see oral surgery to contend with his left front tooth; hopefully, within the next 4 weeks. This may require a hold of cabozantinib for up to 4 weeks before any invasive dental procedure. 3. Return in 4 weeks for laboratories and clinical exam. At that time, we can discuss whether it is appropriate to start denosumab depending on the status of the tooth. Overall, my recommendation would be to make sure this problematic tooth has been completely dealt with before adding denosumab to cabozantinib given the risks. TIME STATEMENT: 40 minutes [id number] with the patient, more than 50% involved in counseling regarding the results of his scans, reviewing images, explaining their meaning, discussing bone modifying agents in the setting of oral hygiene, answering the patient and his 's questions, addressing pain issues, and recommending continued use of current anti pain medications optimally, and all other issues as above. Electronically Signed by Alesha Wilson MD 02/16/2019 03:23 P DD: Alesha Wilson MD 02/15/2019 01:20 P DT: main 02/16/2019 07:47 A CC: MD Gaston Rome DDS Nancy Spicer, ANP
[2019-03-11 15:42] LABS: HEMATOCRIT 41.9 % (42.0-52.0); HEMOGLOBIN 14.4 g/dl (13.5-17.5); LYMPH % 18.4 % (24.0-44.0); MEAN CORPUSCULAR HGB CONC 34.4 g/dl (32.0-36.5); MEAN CORPUSCULAR VOLUME 101.8 fl (80.0-96.0); NEUTROPHILS # 3.9 10^3/uL (1.8-7.7); RED BLOOD COUNT 4.12 10^6/uL (4.30-6.10); WHITE BLOOD COUNT 5.3 10^3/uL (4.0-10.0)
[2019-03-11 16:25] LABS: ALBUMIN 3.7 GM/DL (3.2-5.2); ALT/SGPT 44 U/L (12-78); BILIRUBIN,TOTAL 0.5 MG/DL (0.2-1.0); BLOOD UREA NITROGEN 11 MG/DL (7-18); CALCIUM LEVEL 8.8 MG/DL (8.5-10.1); CARBON DIOXIDE LEVEL 29 MEQ/L (21-32); CHLORIDE LEVEL 108 MEQ/L (98-107); CREATININE FOR GFR 0.77 MG/DL (0.70-1.30); GLOMERULAR FILTRATION RATE > 60.0 (>56); GLUCOSE, FASTING 94 MG/DL (70-100); SODIUM LEVEL 142 MEQ/L (136-145); TOTAL PROTEIN 7.1 GM/DL (6.4-8.2)
[2019-03-14 09:08] VITALS: BP 140/91
[2019-03-14 10:27] LABS: APPEARANCE, URINE CLEAR (CLEAR); BACTERIA, URINE AUTO NEGATIVE (NEGATIVE); BILIRUBIN, URINE AUTO NEGATIVE (NEGATIVE); BLOOD, URINE BLOOD NEGATIVE (NEGATIVE); COLOR, URINE YELLOW (YELLOW); GLUCOSE, URINE (UA) AUTO NEGATIVE (NEGATIVE); KETONE, URINE AUTO TRACE mg/dL (NEGATIVE); LEUKOCYTE ESTERASE, URINE AUTO TRACE (NEGATIVE); MUCUS, URINE SMALL (NEGATIVE); NITRITE, URINE AUTO NEGATIVE (NEGATIVE); PROTEIN, URINE AUTO NEGATIVE (NEGATIVE); RBC, URINE AUTO 3 /HPF (0-3); SPECIFIC GRAVITY URINE AUTO 1.026 (1.002-1.035); SQUAMOUS EPITHELIAL CELL UR AU 0 /HPF (0-6); WBC, URINE AUTO 2 /HPF (0-3)
--- NOTE | 2019-03-15 14:39 | MEDONC ---
MEDICAL ONCOLOGY FOLLOWUP DATE OF SERVICE: 03/14/2019 DIAGNOSES: 1. Stage IV [id number] clear cell renal cell carcinoma, intermediate risk with 10.6 cm right renal mass, non up-front operative candidate, skeletal involvement with large T12 mass, status post radiation now considered a candidate for corpectomy, multiple focal thoracic vertebral lesions, left iliac involvement undergoing radiation. Original diagnosis October 2018. On first-line palliative Cabozantinib started late November. Now status post palliative RT to T12 complete 12/15/2018, undergoing left iliac radiation. To begin denosumab today after dental clearance. 2. Cancer related pain involving back in the setting of long-term history of autoimmune arthritis, off immunosuppressive. Pain is poly migratory but very focused at the T12 low thoracic region, additionally involving left low back, right low back, right hip, left hip. TREATMENT HISTORY: Radiation to T12 3000 cGy completed 12/15/2018. Currently undergoing left iliac radiation CURRENT THERAPY: Cabozantinib 50 mg daily begun 11/17/2018. INTERVAL HISTORY: Gus got a second opinion with Dr. Godinez of the Urology Department regarding his current treatment. Dr. Godinez focused on the T12 lesion and referred him to Layo Huggins MD of orthopedic surgery, and Dr. Huggins has recommended corpectomy involving T11 and T12 with fusion surgery. Gus is thinking about this. His followup with Dr. Huggins is later in March. Meanwhile, Gus also saw his dentist and got some teeth taken care of and he is all set to begin denosumab, which we can start today. He continues on left iliac radiation. Dr. Godinez reportedly endorsed current systemic therapy. Gus also saw Iraida Bejarano of palliative care, who also endorsed his current pain regimen. Gus complains both of intermitten excruciating pain in his back and taking less than his total daily allotment of pain medications. He clarifies that at moments and with certain positions the pain is excruciating but not chronically so. He is currently taking hydrocodone / acetaminophen up to three to four times per day He expresses satisfaction with this dose/regimen. REVIEW OF SYSTEMS: In addition to pertinent positives and negatives noted above, Gus acknowledges decreased appetite, but he is thinking about starting Boost, he wants to gain more weight. He complains of nausea caused by the pain. No new shortness of breath, chest pain or palpitations. No new leg cramping or swelling. No fevers or chills. No new urinary complaints. No bowel complaints. Remainder of 12 system review negative. PHYSICAL EXAMINATION: Vital signs are normal today. Weight is 68.6 kg, in the last month a 1 kg loss but approximate 6 kg loss versus November. Respiratory: Clear lungs throughout the lung little. No wheezes or rales. Cardiac: S1, S2. Regular rate and rhythm. No murmur, rub or gallop. Abdomen: Soft, nontender, nondistended. Extremities: No edema. Lymph nodes: No palpable submandibular, cervical, supraclavicular or axillary adenopathy bilaterally. LABORATORIES: From 03/11/2019: WBC 5.3, hemoglobin 14, hematocrit 42, platelets 160, MCV 101. Electrolytes unremarkable. Renal function normal, liver function normal , alk phos normal, UA negative for protein today. IMPRESSION: Stage IV clear cell renal cell carcinoma with unresected dominant right renal mass and multi focal skeletal lesions on first-line treatment with Cabozantinib. T12 compression fracture at site of metastasis, status post radiation with persistent pain, candidate for corpectomy. Undergoing palliative radiation to left iliac painful metastatic focus. ECOG performance status 1. Status post dental clearance to begin denosumab. PLAN: 1. Denosumab 120 mg today and continue q. 4 weeks. 2. Continue Cabozantinib. 3. I completely endorse and approved the plan for corpectomy given Ugs's ongoing pain and the need for spinal stabilization according to Dr. Huggins. 4. I will defer pain management to Iraida Bejarano for the present. 5. Continue monthly UA, CBC, CMP. 6. Most recent restaging with PET 02/08/2019 showed multifocal skeletal hypermetabolic uptake, as well as right and left upper lobe of lung uptake but overall decrease in the size of left rib lesion and clinical improvement versus at time of diagnosis. We will plan 3-month interval restaging and/or as driven by symptoms to include CT chest, abdomen pelvis and PET. Time statement: 40 minutes [id number] with the patient, more than 50% involved in answering the patient's questions, discussing the pros and cons of corpectomy, discussing his pain management, answering his questions about that, discussing the need for monthly UA to monitor for urinary protein, addressing risks, benefits and potential side effects of denosumab. Electronically Signed by Alesha Wilson MD 03/17/2019 07:15 A DD: Alesha Wilson MD 03/14/2019 04:46 P DT: [email or web address] 03/15/2019 02:21 P CC: MARYCHUY Newby MD Daniel DeBlasio, MD William F. Lavelle, MD Nancy Spicer, ANP
[2019-04-11 11:09] LABS: APPEARANCE, URINE CLEAR (CLEAR); BACTERIA, URINE AUTO NEGATIVE (NEGATIVE); BASO % 0.4 % (0.0-1.0); BILIRUBIN, URINE AUTO NEGATIVE (NEGATIVE); BLOOD, URINE BLOOD NEGATIVE (NEGATIVE); COLOR, URINE YELLOW (YELLOW); EOS # 0.3 10^3/uL (0.0-0.5); EOS % 4.4 % (0.0-3.0); GLUCOSE, URINE (UA) AUTO NEGATIVE (NEGATIVE); HEMATOCRIT 44.8 % (42.0-52.0); HEMOGLOBIN 14.8 g/dl (13.5-17.5); KETONE, URINE AUTO NEGATIVE (NEGATIVE); LEUKOCYTE ESTERASE, URINE AUTO NEGATIVE (NEGATIVE); LYMPH # 0.8 10^3/uL (1.5-5.0); LYMPH % 11.7 % (24.0-44.0); MEAN CORPUSCULAR HEMOGLOBIN 34.9 pg (27.0-33.0); MEAN CORPUSCULAR VOLUME 105.7 fl (80.0-96.0); MONO # 0.7 10^3/uL (0.0-0.8); MONO % 10.1 % (0.0-5.0); MUCUS, URINE SMALL (NEGATIVE); NEUTROPHILS # 5.1 10^3/uL (1.5-8.5); NEUTROPHILS % 73.1 % (36.0-66.0); NITRITE, URINE AUTO NEGATIVE (NEGATIVE); PLATELET COUNT, AUTOMATED 141 10^3/uL (150-450); PROTEIN, URINE AUTO NEGATIVE (NEGATIVE); RBC, URINE AUTO 1 /HPF (0-3); RED BLOOD COUNT 4.24 10^6/uL (4.30-6.10); SPECIFIC GRAVITY URINE AUTO 1.016 (1.002-1.035); SQUAMOUS EPITHELIAL CELL UR AU 0 /HPF (0-6); UROBILINOGEN, URINE AUTO 0.2 mg/dL (0.0-2.0); WBC, URINE AUTO 1 /HPF (0-3)
[2019-04-11 11:27] VITALS: BP 131/85
[2019-04-11 11:29] LABS: ALBUMIN 3.7 GM/DL (3.2-5.2); ALT/SGPT 38 U/L (12-78); BILIRUBIN,TOTAL 0.6 MG/DL (0.2-1.0); BLOOD UREA NITROGEN 12 MG/DL (7-18); CALCIUM LEVEL 9.1 MG/DL (8.5-10.1); CARBON DIOXIDE LEVEL 29 MEQ/L (21-32); CHLORIDE LEVEL 106 MEQ/L (98-107); CREATININE FOR GFR 0.76 MG/DL (0.70-1.30); GLOMERULAR FILTRATION RATE > 60.0 (>56); GLUCOSE, FASTING 95 MG/DL (70-100); POTASSIUM SERUM 4.1 MEQ/L (3.5-5.1); SODIUM LEVEL 141 MEQ/L (136-145); TOTAL PROTEIN 7.5 GM/DL (6.4-8.2)
--- NOTE | 2019-04-12 07:45 | MEDONC ---
MEDICAL ONCOLOGY FOLLOWUP: DATE OF SERVICE: 04/11/2019 DIAGNOSIS: 1. Stage IV, T3a NX M1 clear cell right renal cell carcinoma, intermediate risk was 10.6 cm right renal mass, not an up-front operative candidate, skeletal involvement with large T12 mass status post radiation and a candidate for corpectomy planning underway, multiple focal thoracic vertebral lesions, left iliac involvement status post radiation. Diagnosed in October 2018. On first-line palliative cabozantinib at that begun late November. 2. Cancer related pain in the setting of long-term history of autoimmune arthritis off immunosuppressives. Pain is poly migratory focus at T12, but much improved following radiation multiple sites of pain involving left low back, right low back, right hip, left hip which vary. Following in palliative care clinic for pain management. TREATMENT HISTORY: Radiation T12 3000 cGy completed 12/15/2018, left iliac radiation 3000 cGy 03/07/2019 - 03/18/2019. CURRENT THERAPY: Cabozantinib 50 mg daily begun 11/17/2018. INTERVAL HISTORY: Gus reports overall doing better but not completely out of pain since his radiation completed. He is struggling with constipation but does not want to take anti-laxative medications more than once a day. I counseled him regarding use of Senokot and Colace up to three times a day as needed. Dietary interventions and counseled extensively that as long as he is on opioid and antibiotics, he will need to maintain bowel regimen to help with constipation. He was at length consoled regarding this and agreed to try this. He is working on a surgical date with Dr. Huggins for his corpectomy and waiting to hear. He is disappointed this may not be until May. He will need to be off his cabozantinib for 3 weeks prior. We mapped that out in terms of date. REVIEW OF SYSTEMS: In addition to pertinent positives and negatives as noted above, the patient denies fevers, headache, visual disturbance per se, oral problems, mouth sores, dental problems per se. He did undergo some dental care prior to starting denosumab. He has some transitory back pain after his last denosumab but it was mild. He reports no new shortness of breath, cough. No hemoptysis. No blood in urine but acknowledges possibly having some hemorrhoids leading to some blood sometimes when he wipes. This is not new. He does have some nausea but no vomiting. Chocolate milk helps. He has some crampy abdominal discomfort involving his lower abdomen at times. He thinks it may be related to his prior radiation. He gets slightly tingling in his hands and feet. This is not permanent, comes on and off. Remainder of 12-system review negative. PHYSICAL EXAMINATION: Weight 68 kg, temperature 97.4, blood pressure 131/85, heart rate 82, respiratory 18, O2 sat 99%. Patient is a well groomed normal weight man in no distress. Respiratory: Clear lungs to auscultation bilaterally anteriorly and posteriorly. No wheezes, rubs or rales. Cardiac: S1, S2 regular rate and rhythm. Abdomen: The patient guards but is distractible. The left abdomen is nontender. There is no palpable splenomegaly. No hepatomegaly. No palpable mass in the right abdomen. He guards a little more but again is distractible. There is no palpable mass on the right flank in an area where he has been tender since diagnosis. There remains some tenderness. No ecchymoses present. No rebound tenderness. No suprapubic tenderness. Extremities: No edema. Lymph nodes: No submandibular, cervical, supraclavicular or axillary adenopathy bilaterally. Psych: The patient is alert, oriented to person, place and time. Speech is appropriate. Affect normal and appropriate. HEENT: Oropharynx is clear. Dentition in good repair. No buccal or gingival lesions. No tongue lesions. LABS: WBC 7, hemoglobin 14, hematocrit 45, platelets 141, MCV 105. Electrolytes normal with renal function liver function normal. IMPRESSION: 1. Stage IV T3 Nx M1 clear cell renal cell carcinoma, intermediate risk with intact right renal mass 10.6 cm. Skeletal involvement status post T12 and left iliac radiation. Candidate for T12 corpectomy planning underway. Clinically stable with low grade abdominal discomfort and some constipation likely multifactorial including opioid related on three times a day oxycodone and related to recent radiation. This is a grade 1-2 symptoms. Will watch. 2. ECOG performance status 1. PLAN: 1. Counseled regarding [id number] laxatives for opioid related constipation. 2. Continue cabozantinib. 3. Denosumab today. 4. 1-month interval return with CBC, stat CMP, clinical exam and denosumab 5. Plan restaging CT chest, abdomen and pelvis prior to next visit as restaging. Electronically Signed by Alesha Wilson MD 04/13/2019 06:41 P DD: Alesha Wilson MD 04/11/2019 05:21 P DT: gray 04/12/2019 07:25 A CC: MARYCHUY Newby MD Daniel DeBlasio, MD William F. Lavelle, MD Nancy Spicer, ANP
--- NOTE | 2019-04-13 00:24 | MEDONCLTR ---
April 12, 2019 [facility] Dr. Layo Huggins Dear Dr. Huggins, This letter regards Gus Gale, 1960, whom we follow in the [facility] for an established diagnosis of stage IV, [id number] clear cell right renal cell carcinoma, intermediate risk was 10.6 cm right renal mass, not an up front operative candidate, skeletal involvement with large T12 mass, status post radiation, candidate for corpectomy, planning underway (scheduled date 05/18/2019), multiple focal thoracic vertebral lesions, left iliac involvement, status post radiation. Diagnosed October 2018. On first-line palliative cabozantinib, begun late November. At this time, Gus is clinically stable in regards to his stage IV clear cell renal cell carcinoma. He was seen most recently by Dr. Alesha Wilson on 04/11/2019. Please see her dictated note for complete details. Dr. Wilson is advising that Gus will need to be off his cabozantinib for 3 weeks prior to his scheduled surgery, this has been mapped out in terms of date. We will also be holding cabozantinib and denosumab, as well, for approximately 4 weeks postoperatively. We will defer medical clearance, and pre op testing including EKG, BMP, CBC with differential, HCT, PT, PTT, INR to the patient's primary. Should you have any questions or need additional information, please do not hesitate to contact this office. Sincerely, MARYCHUY Lundberg Electronically Signed by Daphney Orellana NP 04/13/2019 07:14 A DD: Daphney Orellana NP 04/12/2019 03:59 P DT: mario 04/13/2019 12:05 A CC:
[2019-05-24 14:39] VITALS: BP 118/85
[2019-05-24 15:46] LABS: BASO # 0.1 10^3/uL (0.0-0.2); BASO % 0.7 % (0.0-1.0); EOS # 0.2 10^3/uL (0.0-0.5); EOS % 2.7 % (0.0-3.0); HEMATOCRIT 34.2 % (42.0-52.0); HEMOGLOBIN 10.6 g/dl (13.5-17.5); LYMPH # 0.7 10^3/uL (1.5-5.0); LYMPH % 9.2 % (24.0-44.0); MEAN CORPUSCULAR VOLUME 103.3 fl (80.0-96.0); MONO # 0.7 10^3/uL (0.0-0.8); MONO % 8.8 % (0.0-5.0); NEUTROPHILS # 6.3 10^3/uL (1.5-8.5); NEUTROPHILS % 78.2 % (36.0-66.0); PLATELET COUNT, AUTOMATED 319 10^3/uL (150-450); RED BLOOD COUNT 3.31 10^6/uL (4.30-6.10); WHITE BLOOD COUNT 8.1 10^3/uL (4.0-10.0)
[2019-05-24 16:12] LABS: ALBUMIN 2.6 GM/DL (3.2-5.2); ALT/SGPT 38 U/L (12-78); BILIRUBIN,TOTAL 0.4 MG/DL (0.2-1.0); BLOOD UREA NITROGEN 12 MG/DL (7-18); CALCIUM LEVEL 8.3 MG/DL (8.5-10.1); CARBON DIOXIDE LEVEL 29 MEQ/L (21-32); CHLORIDE LEVEL 107 MEQ/L (98-107); GLOMERULAR FILTRATION RATE > 60.0 (>56); GLUCOSE, FASTING 110 MG/DL (70-100); POTASSIUM SERUM 4.4 MEQ/L (3.5-5.1); SODIUM LEVEL 140 MEQ/L (136-145); TOTAL PROTEIN 6.8 GM/DL (6.4-8.2)
[2019-05-24 16:19] LABS: FREE T4 1.12 NG/DL (0.76-1.46); THYROID STIMULATING HORMONE 2.9 uIU/ML (0.358-3.740)
--- NOTE | 2019-05-26 20:42 | MEDONC ---
MEDICAL ONCOLOGY FOLLOWUP DATE OF SERVICE: 05/24/2019 DIAGNOSES: 1. 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 [facility] [place] with skeletal involvement, large T12 mass status post radiation and candidate for corpectomy with multiple focal thoracic vertebral lesions and left iliac lymph node involvement. Now with progression through first-line, presenting with new malignant pleural effusion, status post PleurX. 2. Cancer related pain in the setting of jail autoimmune rheumatoid arthritis. Pain may be multifactorial and is polymigratory with a T12 focus, was scheduled for palliative corpectomy when malignant effusion occurred. CURRENT THERAPY Cabozantinib 50 mg daily begun 11/17/2018; held in April for planned corpectomy in May, resumed in the last week. TREATMENT HISTORY Radiation to T12 3000 cGy completed 12/15/2018. Left iliac radiation 3000 cGy 03/07/2019 - 03/18/2019. INTERVAL HISTORY Gus is here for followup. I spoke with his urology oncologist at [facility] this morning Dr. Bruno who agrees with me that next line of treatment appropriately would be immunotherapy with nivolumab. Dr. Bruno and I discussed whether the belimumab should added to nivolumab; I strongly recommended against this based on Gus's multiple prior complications, somewhat low threshold for anxiety about complications and unfortunately high threshold for presenting with these complications. Nivolumab single agent has a great track record and is probably the next best treatment for this patient who also likes to maintain the most normal quality of life possible. I reviewed risks, benefits, side effects, schedule of nivolumab with Gus and his including but not limited to once every 4 weeks dosing, the side effects of potential risk of autoimmune disease including flare of his rheumatoid arthritis. These autoimmune processes are typically transaminitis, thyroiditis, dermatitis, and can be as severe as pneumonitis or colitis, or hypophysitis, as variable as myocarditis, uveitis. I cautioned they are not typical chemotherapy related side effects but rather autoimmune effects. Gus asked many questions all of which I answered to his apparent satisfaction and ultimately and he was decided he would like to go forward with this. I recommended he stop the cabozantinib about 5 days before he starts the nivolumab. He notes the PleurX is discontinued draining much. Currently has no increased shortness of breath and he is feeling okay, but his performance status remains 2 right now, still recovering from his hospitalization. IMPRESSION Progressive renal cell carcinoma involving dominant right renal cell mass, extensive skeletal involvement and recent malignant pleural effusion status post PleurX. ECOG performance status 2, but quickly improving. PLAN 1. Discontinue cabozantinib shortly before starting nivolumab. 2. Begin nivolumab 480 mg q. 4 weeks. 3. Denosumab today following CBC, stat CMP. 4. I will plan to see the patient on day one cycle two nivolumab and I invited him to call with any new problems or concerns. Electronically Signed by Alesha Wilson MD 05/27/2019 05:41 P DD: Alesha Wilson MD 05/24/2019 03:19 P DT: vladimir 05/26/2019 07:59 P CC: MARYCHUY Newby MD Robert Johnson, MD Nancy Spicer, PERICO Bruno MD
[2019-06-02 13:30] VITALS: BP 111/71
[2019-06-02 13:44] LABS: BASO # 0.1 10^3/uL (0.0-0.2); BASO % 0.9 % (0.0-1.0); EOS # 0.5 10^3/uL (0.0-0.5); EOS % 9.2 % (0.0-3.0); HEMATOCRIT 37.2 % (42.0-52.0); HEMOGLOBIN 11.6 g/dl (13.5-17.5); LYMPH # 1.1 10^3/uL (1.5-5.0); LYMPH % 18.3 % (24.0-44.0); MEAN CORPUSCULAR HEMOGLOBIN 32.1 pg (27.0-33.0); MEAN CORPUSCULAR HGB CONC 31.2 g/dl (32.0-36.5); MONO # 0.6 10^3/uL (0.0-0.8); MONO % 10.3 % (0.0-5.0); NEUTROPHILS # 3.6 10^3/uL (1.5-8.5); NEUTROPHILS % 61.1 % (36.0-66.0); PLATELET COUNT, AUTOMATED 187 10^3/uL (150-450); RED BLOOD COUNT 3.61 10^6/uL (4.30-6.10); WHITE BLOOD COUNT 5.8 10^3/uL (4.0-10.0)
[2019-06-02 14:40] LABS: ALBUMIN 2.6 GM/DL (3.2-5.2); ALT/SGPT 32 U/L (12-78); BILIRUBIN,TOTAL 0.6 MG/DL (0.2-1.0); BLOOD UREA NITROGEN 13 MG/DL (7-18); CALCIUM LEVEL 8.4 MG/DL (8.5-10.1); CARBON DIOXIDE LEVEL 27 MEQ/L (21-32); CHLORIDE LEVEL 105 MEQ/L (98-107); CREATININE FOR GFR 0.76 MG/DL (0.70-1.30); FREE T4 0.97 NG/DL (0.76-1.46); GLOMERULAR FILTRATION RATE > 60.0 (>56); GLUCOSE, FASTING 82 MG/DL (70-100); POTASSIUM SERUM 3.8 MEQ/L (3.5-5.1); SODIUM LEVEL 139 MEQ/L (136-145); TOTAL PROTEIN 6.9 GM/DL (6.4-8.2)
--- NOTE | 2019-06-02 15:17 | ONC.PHACK ---
CHEMO ADMIN CHECKLIST Order Contains Pt ID: Name, Order on Chemo Order Form?: Yes Order Form Includes ALL: Correct Tx Day, Correct Date, Correct Cycle Number Pt ID on Order form Matches: Pt ID on PHA Label Med on Chemo OrderForm Matches: PHA Label, Med Used for Preparation [facility] Jun 02, 2019 15:17
[2019-06-16 15:01] VITALS: BP 116/71
--- NOTE | 2019-06-17 20:02 | MEDONC ---
MEDICAL ONCOLOGY FOLLOWUP DATE OF SERVICE: 06/16/2019 DIAGNOSES: 1. 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 Bruno, ([facility] [place]) with skeletal involvement and T12 mass at diagnosis. Status post T12 radiation followed by consideration for corpectomy. 2. Progression through first-line treatment with malignant pleural effusion April 2019, now status post PleurX complicated by PleurX malfunction but streptokinase treatment and clearance, began nivolumab 06/02/2019. INTERVAL HISTORY Gus has had an eventful month. He required readmission to the hospital for shortness of breath on 06/14/2019. The PleurX again required tPA pleurolysis and subsequently drained 500 mL of serosanguineous fluid under Dr. Wiley's care. Gus is due for next nivolumab 06/30/2018. Labs were last drawn on his day of discharge 06/14/2019. Hemoglobin was 8.9. He is extremely pale today and I recommended we check his blood for possible need for transfusion but he adamantly refused. Not wanting another blood draw. His veins he says are difficult "they keep killing me." We went back and forth a bit as I am struck with his pallor today but he insisted on deferring. He also requested a MediPort as he is tired of having IV sticks. I pointed out arranging a MediPort requires coags be checked first. He asked if this could be postponed until Thursday; of course they can. I gave abundant cautions about signs and symptoms to watch for and going to the emergency room over the weekend if needed. Gus reports otherwise. He feels okay. Other than the extreme fatigue no new pain. He thinks his breathing is much better now. Last chest image was a chest x-ray on 06/15/2019 showing improvement in the right pleural effusion and a chest CT 06/14/2019 showed multiloculated right effusion, nodular visceral and parietal pleural thickening with progression in the right chest and paratracheal lymph nodes larger versus May 10. In the left chest wall there is a renal mass, numerous pulmonary metastatic lesions also again noted. PHYSICAL EXAMINATION: Vital signs: Weight is 61 kg, BMI 20. Of note approximate 5 kg loss over 2 weeks, temperature 98, blood pressure 116/71, heart rate 108, respiratory rate 20, O2 sat 91%. Patient is a very pale slender fatigued looking man. Respiratory: Clear to auscultation in the right upper lung field, but decreased breath sounds in the right base. Good air movement throughout the left lung. Cardiac: S1, S2. Regular rate and rhythm. No murmur, no gallop. Abdomen is soft, nontender, nondistended. No hepatosplenomegaly or mass. Extremities: No edema. LABS: No labs today. Most recent CBC 06/14/2019. WBC 8, hemoglobin 8.90, hematocrit 29, platelets 262, MCV 100. Electrolytes unremarkable. That day, calcium 7.6 with albumin on 06/02/2019, 2.6. IMPRESSION A 58-year-old man with metastatic clear cell renal cell carcinoma with progression through first-line cabozantinib, now on nivolumab recently admitted with malignant pleural effusion as his sign of progression prior to starting nivolumab, and requiring repeated hospitalizations for PleurX stenosis requiring tPA. Now status post large fluid drainage 06/14/2018. Significant new anemia following pleural drainage and patient unwilling to recheck hemoglobin today; suspect further hemoglobin drop which raises some concern for hemothorax. PLAN 1. Gus was adamant about doing any more tests or blood draws today. He will return Thursday. Will repeat CBC and if a significant drop prescribe transfusion. 2. Mediport placement. 3. Barring new developments cycle two nivolumab 05/30/2019. 4. Plan restaging after completion of 3 weeks after second nivolumab. Electronically Signed by Alesha Wilson MD 06/21/2019 07:58 P DD: Alesha Wilson MD 06/16/2019 04:55 P DT: vladimir 06/17/2019 07:22 P CC: MD Iraida Smith, PERICO
[2019-06-20 11:15] LABS: BASO # 0.1 10^3/uL (0.0-0.2); BASO % 0.3 % (0.0-1.0); EOS # 0.1 10^3/uL (0.0-0.5); EOS % 0.3 % (0.0-3.0); HEMATOCRIT 29.3 % (42.0-52.0); HEMOGLOBIN 8.7 g/dl (13.5-17.5); LYMPH # 0.7 10^3/uL (1.5-5.0); LYMPH % 4.8 % (24.0-44.0); MEAN CORPUSCULAR HEMOGLOBIN 29.7 pg (27.0-33.0); MEAN CORPUSCULAR HGB CONC 29.7 g/dl (32.0-36.5); MONO # 1.8 10^3/uL (0.0-0.8); MONO % 11.6 % (0.0-5.0); NEUTROPHILS # 12.5 10^3/uL (1.5-8.5); NEUTROPHILS % 82.3 % (36.0-66.0); PLATELET COUNT, AUTOMATED 398 10^3/uL (150-450); RED BLOOD COUNT 2.93 10^6/uL (4.30-6.10); WHITE BLOOD COUNT 15.2 10^3/uL (4.0-10.0)
[2019-06-20 11:27] LABS: INR 1.14; PARTIAL THROMBOPLASTIN TIME 34.7 SECONDS (25.0-38.4); PROTHROMBIN TIME 14.3 SECONDS (11.8-14.0)
[~2019-06-30] VITALS: Ht 172.7 cm; Wt 60.8 kg
[~2019-06-30 12:38] MED LIST changes: +DENOSUMAB (XGEVA) 120MG/1.7ML VIAL (J0897 PER 1MG) (FOR ONCOLOGY) SC ONE; -FENT12DI8 TD; +FLUBLOK(EGG FREE)(QUAD)INFLUENZA VACC 0.5ML SYRINGE (90682)18YRS&OLDER IM ONE; -LIDOCAINE 1% MDV 20ML VIAL As Ordered ONE; -MIDAZOLAM INJ 2 MG/2 ML VIAL (J2250) As Ordered ONE; +NIVOLUMAB IV ONE; -ceFAZolin 1GM INJ (J0690 PER 500MG) As Ordered ONE; -diphenhydrAMINE INJ 50MG/ML VIAL (J1200) As Ordered ONE; -fentaNYL 100 MCG/2 ML INJECTION (J3010) As Ordered ONE
[2019-06-30] MEDS ORDERED: DENOSUMAB (XGEVA) 120MG/1.7ML VIAL (J0897 PER 1MG) (FOR ONCOLOGY) SC ONE (12:45)
[2019-06-30] MEDS ORDERED: SODIUM CHLORIDE 0.9% INJ 10 ML SYR IV PRN (13:15)
[2019-06-30 13:16] VITALS: BP 95/62
[2019-06-30 13:25] LABS: BASO % 0.1 % (0.0-1.0); EOS % 0.1 % (0.0-3.0); HEMATOCRIT 25.3 % (42.0-52.0); HEMOGLOBIN 7.5 g/dl (13.5-17.5); LYMPH % 1.5 % (24.0-44.0); MEAN CORPUSCULAR HEMOGLOBIN 29.9 pg (27.0-33.0); MEAN CORPUSCULAR HGB CONC 29.6 g/dl (32.0-36.5); MEAN CORPUSCULAR VOLUME 100.8 fl (80.0-96.0); MONO # 1.4 10^3/uL (0.0-0.8); MONO % 9.3 % (0.0-5.0); NEUTROPHILS # 13.3 10^3/uL (1.5-8.5); NEUTROPHILS % 88.1 % (36.0-66.0); PLATELET COUNT, AUTOMATED 313 10^3/uL (150-450); RED BLOOD COUNT 2.51 10^6/uL (4.30-6.10); WHITE BLOOD COUNT 15.1 10^3/uL (4.0-10.0)
[2019-06-30 13:30] LABS: LYMPH # 0.2 10^3/uL (1.5-5.0)
[2019-06-30 13:51] LABS: ALBUMIN 2.4 GM/DL (3.2-5.2); BILIRUBIN,TOTAL 0.3 MG/DL (0.2-1.0); CALCIUM LEVEL 9.3 MG/DL (8.5-10.1); CREATININE FOR GFR 3.35 MG/DL (0.70-1.30); GLOMERULAR FILTRATION RATE 20.2 (>56); POTASSIUM SERUM 3.7 MEQ/L (3.5-5.1); TOTAL PROTEIN 7.5 GM/DL (6.4-8.2)
[2019-06-30] MEDS ORDERED: FENT12DI8 TD (14:37)
--- NOTE | 2019-06-30 15:36 | MEDONC ---
MEDICAL ONCOLOGY FOLLOWUP / TREATMENT VISIT DATE OF SERVICE: 06/30/2019 DIAGNOSES: 1. 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 Bruno, ([facility] [place]) with skeletal involvement and T12 mass at diagnosis. Status post T12 radiation followed by consideration for corpectomy. 2. Progression through first-line treatment with malignant pleural effusion April 2019, now status post PleurX complicated by PleurX malfunction but streptokinase treatment and clearance, began nivolumab 06/02/2019. CURRENT THERAPY Nivolumab single agent. Today would be day 1 cycle two. Treatment begun 06/19/2018. INTERVAL HISTORY Gus returns now appearing extremely drawn, tired and pale. He is in a wheelchair. Over the weekend he desaturated but did not want to go to the emergency room. He saw a quality compliance manager at Dr. Wiley's office, but Dr. Wiley being away they have postponed further PleurX clearance procedure. Very little fluid is coming out of PleurX at this point. Gus is adamant he wants to continue treatment though he looks very well, has clearly lost a great deal of weight, has temporal wasting. Weight today is 60 kg, previously 61; 66 in May. Vital signs are stable and normal. Hemoglobin and hematocrit are 7.5 and 25 respectively. WBC 15, platelets 3013. Waiting for electrolytes. He is somewhat confused. Difficult to keep on track in conversation. I discussed discontinuing treatment and hospice care. He adamantly declined. We discussed DNR/DNI and he did sign a MOLST form. Is DNR/DNI and COMFORT MEASURES only. Electrolytes then returned with hyponatremia 132, acute renal failure, creatinine 3.3, GFR 20, BUN 80, AST 53, ALT 42, albumin 2.4. IMPRESSION Acute renal insufficiency, likely multifactorial including possible disease progression of metastatic renal cell carcinoma, dehydration. Anemia. Hemoglobin likely hemoconcentrated. It is 7.5, more likely lower given the patient's pallor. ECOG performance status now 3. On second line treatment for metastatic renal cell carcinoma. I believe Gus is not strong enough. Will refer him to the emergency room for evaluation. His lung exam today involves very distant breath sounds, crackly, I suspect he has got intravascular depletion with third spacing fluid overload including likely pleural effusion, prerenal azotemia and hydrating him here risks potential of oxygen desaturation and fluid overload leading to respiratory collapse. Electronically Signed by Alesha Wilson MD 06/30/2019 07:34 P DD: Alesha Wilson MD 06/30/2019 01:51 P DT: vladimir 06/30/2019 03:27 P CC:
[2019-06-30] MEDS ORDERED: NYST50SS SS (17:02)
== END 2019-06-30 12:45 | disposition home or self-care (01) ==
LOC: M ONCM 12:38
PROVIDERS: ATTEND Internal Medicine Medical Oncology
DX: C64.1 Malignant neoplasm of right kidney, except renal pelvis (principal); C79.51 Secondary malignant neoplasm of bone; E83.51 Hypocalcemia; M06.9 Rheumatoid arthritis, unspecified; Z79.899 Other long term (current) drug therapy; C64.9 Malignant neoplasm of unspecified kidney, except renal pelvis
CPT/HCPCS: 36415; 36591; 80053; 81001; 83615; 84439; 84443; 85025; 85027; 85610; 85730; 90682; 96372; 96413; G0463; J0897; J9299

== ENCOUNTER 2019-06-30 14:13 | Inpatient (IN) | payer OTHER ==
[~2019-06-30] VITALS: Ht 170.2 cm; Wt 59.1 kg
[~2019-06-30 14:13] MED LIST changes: -DENOSUMAB (XGEVA) 120MG/1.7ML VIAL (J0897 PER 1MG) (FOR ONCOLOGY) SC ONE; -FLUBLOK(EGG FREE)(QUAD)INFLUENZA VACC 0.5ML SYRINGE (90682)18YRS&OLDER IM ONE; -NIVOLUMAB IV ONE
[2019-06-30] MEDS ORDERED: FENT12DI8 TD (14:37)
[2019-06-30] MEDS ORDERED: NS 1,000 ML IV ONE (15:15)
[2019-06-30 16:01] LABS: PERCENT SATURATION 8.9 % (19.7-50.0)
--- NOTE | 2019-06-30 16:21 | REP ---
CT of the abdomen and pelvis without IV or bowel contrast for renal failure, possible obstruction. Comparison is 05/04/2019. The the patient has a known large necrotic right renal mass along the entire medial margin of the right kidney seen to better advantage on the prior study with IV contrast. There is right hydronephrosis, likely a consequence of the tumor obstructing the right ureter. Multiple renal satellite lesions, adenopathy, and skeletal metastases are again identified as previously described. There is no ascites. There is no bowel distension or obstruction. The abdominal aorta is unremarkable. The bladder and pelvic bowel loops are unremarkable. The Impression: There is right hydronephrosis, likely a consequence of the large tumor along the medial border of the right kidney obstructing the right ureter. There is no ascites. There is no bowel distension or obstruction. Pararenal satellite lesions, adenopathy, and skeletal metastases are unchanged from prior studies. Electronically Signed by Andrés Mcintyre MD 06/30/2019 04:12 P
--- NOTE | 2019-06-30 16:35 | REP ---
CT of the chest without IV contrast, stat request for pleural effusion evaluation: Comparison is 06/14/2019. The patient has a known right malignant pleural effusion. There has been interval placement of a right IJ central venous catheter with the tip in the right atrium in satisfactory position. There is no pneumothorax. There is a large multiloculated right pleural effusion with nodular pleural thickening, not significantly changed in size. The right chest tube is unchanged. There is a small left pleural effusion that has decreased in size. There are multiple lung nodules, unchanged. The there is a right upper lobe lung mass, not significantly changed. Cardiac size is normal. There is no pericardial effusion. The upper abdomen is excluded from the study. Impression: No significant size change in the known malignant right pleural effusion, accompanied by nodular pleural thickening. Interval placement of a right IJ central venous catheter. The tip is in the right atrium. There is no pneumothorax. The multiple lung nodules and right upper lobe lung mass are not significantly changed. The mediastinal adenopathy is not significantly changed. Cardiac size is normal per there is no pericardial effusion. The abdomen is excluded from the study. The right chest tube is unchanged. Electronically Signed by Andrés Mcintyre MD 06/30/2019 04:26 P
[2019-06-30] MEDS ORDERED: MOM 30ML SUSPENSION UDC PO PRN (17:00)
[2019-06-30] MEDS ORDERED: ACETAMINOPHEN TAB 650MG DOSE (2X325MG) PO PRN (17:00)
[2019-06-30] MEDS ORDERED: MAALOX 30 ML SUSP *UDC PO PRN (17:00)
[2019-06-30] MEDS ORDERED: NYST50SS SS (17:02)
--- NOTE | 2019-06-30 17:04 | HPEPDOC ---
General Date of Admission 06/30/19 Date of Service: Jun 30, 2019 Chief Complaint The patient is a 58-year-old male admitted with a reason for visit of Renal Failure. Source: Patient Exam Limitations: No limitations Timing/Duration: Other Severity: Other (not applicable) Associated Symptoms: Other (not applicable) History of Present Illness This is a 58 years old white male with past medical history of metastatic renal cell carcinoma status post chemotherapy, radiation therapy was sent from Dr. Fermin's office when he was found to have hemoglobin of 7.5, hematocrit 25.3, BUN of 80 and creatinine 3.35. Patient only comfort office complains of generalized tiredness. Denies any c hest pain, chest shortness of breath, nausea, vomiting, abdominal pain, etc. Home Medications Scheduled Fentanyl (Fentanyl) 12 Mcg Patch.td72, 1 PATCH TD Q3RD, (Reported) Gabapentin (Neurontin) 300 Mg Capsule, 300 MG PO QHS, (Reported) Nystatin (Nystatin Oral Susp) 100,000 Unit/1 Ml Oral.susp, 5 ML SS QID Omeprazole (Omeprazole) 20 Mg Tablet.dr, 20 MG PO DAILY, (Reported) Senna (Senna Lax) 8.6 Mg Tablet, 1 TAB PO TID, (Reported) Scheduled PRN Albuterol Sulfate (Proair Hfa) 8.5 Gm Hfa.aer.ad, 2 PUFFS INH QID PRN for SHORTNESS OF BREATH, (Reported) Hydrocodone/Acetaminophen (Hydrocodone-Acetamin 10-325 mg) 1 Each Tablet, 1 TAB PO QID PRN for PAIN, (Reported) Ondansetron HCl (Ondansetron HCl) 4 Mg Tablet, 4 MG PO Q6H PRN for NAUSEA OR VOMITING, (Reported) Allergies Coded Allergies: No Known Drug Allergies (Verified Allergy, Unknown, 11/22/18) Past Medical History Medical History Stage IV renal cell carcinoma, malignant pleural effusion, recurrent, status post Pleurx catheter, metastatic disease of renal carcinoma. 2. Thoracic his spine and pulmonary parenchyma Renal cell carcinoma Surgical History No surgical history except Pleurx catheter placement Family History Significant Family History: No pertinent family hx Social History * Smoker: current smoker Alcohol: Denies Drugs: denies A-FIB/CHADSVASC A-FIB History Current/History of A-Fib/PAF?: No Review of Systems Constitutional: Reports: Weakness, Fatigue, Weight Loss, Lethargy Eyes: Denies: Pain, Vision change, Conjunctivae inflammation, Eyelid inflammation, Redness, Other ENT: Denies: Head Aches, Ear Pain, Dysphagia, Sinus Congestion, Post Nasal Drip, Sore Throat, Epistaxis, Other Symptoms Skin: Denies: Rash, Lesions, Jaundice, Bruising, Itching, Dry, Breakdown, Nail Changes, Other Pulmonary: Denies: Dyspnea, Cough, Pleuritic Chest Pain, Other Symptoms Cardiovascular: Denies: Chest Pain, Palpitations, Orthopnea, Paroxysmal Noc. Dyspnea, Edema, Lt Headedness, Other Symptoms Gastrointestinal: Denies: Nausea, Vomiting, Abdominal Pain, Diarrhea, Constipation, Melena, Hematochezia, Other Symptoms Genitourinary: Denies: Dysuria, Frequency, Incontinence, Hematuria, Retention, Other Symptoms Hematologic: Denies: Bruising, Bleeding Excessively, Petecchia, Purpura, Enlarged Lymph Nodes, Other Hematologic Endocrine: Denies: Polydipsia, Polyphagia, Polyuria, Heat Intolerance, Cold Intolerance, Other Endocrine Sx Musculoskeletal: Denies: Neck Pain, Back Pain, Shoulder Pain, Arm Pain, Hand Pain, Leg Pain, Foot Pain, Joint Pain, Muscle Pain, Spasms, Other Symptoms Psych: Denies: Mood Normal, Anxiety, Depression, Memory Issues, Thoughts of Self Harm, Anger, Thoughts of Harming Other, Other Psych Physical Examination General Exam: Positive: Alert, Cooperative Eye Exam: Positive: PERRLA, Conjunctiva & lids normal ENT Exam: Positive: Atraumatic, Mucous membr. moist/pink Neck Exam: Positive: Supple Chest Exam: Positive: Clear to auscultation, Normal air movement Heart Exam: Positive: Rate Normal, Normal S1, Normal S2 Abdomen Exam: Positive: Normal bowel sounds, Soft Extremity Exam: Positive: Normal pulses Skin Exam: Positive: Other skin issue Neuro Exam: Positive: Strength at 5/5 X4 ext, Cranial Nerves 3-12 NL Psych Exam: Positive: Mental status NL, Mood NL, Oriented x 3 Vital Signs Vital Signs Date Time Temp Pulse Resp B/P (MAP) Pulse Ox O2 Delivery O2 Flow Rate FiO2 06/30/19 14:34 97.0 97 24 94/53 (67) 95 Nasal Cannula 3.0 Laboratory Data Labs 24H Laboratory Tests 2 06/30/19 13:10: Iron Level 18L, Total Iron Binding Capacity 203L, Transferrin % Saturation 8.9L, Ferritin 1064H Problems (1) ARF (acute renal failure) Status: Acute Problem Text: Acute renal failure most likely is multifactorial in nature including progression of renal cell carcinoma, progression of metastasis, consequence of her tumor obstructing the right ureter, dehydration, anemia. Admit patient to [facility] floor 2 units of PRBC for transfusion has been ordered by ED I'll add normal saline 100 mL per hour Strict I and O Oxygen support as needed CBC, CMP in a.m. Poor prognosis As per Dr. Fermin's notes from the oncology clinic today. He is DNR/DNI at and comfort measures, and he signed the most form at the office along with Dr. Fermin Nephrology consult with Dr. Casarez has been requested Regular diet DVT prophylaxis with heparin Activity as tolerated (2) Anemia Status: Acute Problem Text: An anemia most likely secondary to progression of stage IV clear renal cell carcinoma Transfuse 2 units of PRBC tonight CBC in a.m. (3) Renal cell carcinoma of right kidney metastatic to other site Onset Date: ~ 10/2018 Status: Acute Problem Text: DNR/DNI and comfort care Border measures Plan / VTE VTE Prophylaxis Ordered?: Yes BIB ESCOBAR MD Jun 30, 2019 17:04
[2019-06-30] MEDS ORDERED: ALBUTEROL 90 MCG/ACT 8GM HFA INHALER INH PRN (17:15)
[2019-06-30 17:16] VITALS: BP 109/57
[2019-06-30 17:31] VITALS: BP 101/58
[2019-06-30] MEDS: NORCO, ANEXSIA 5/325MG TABLET (HYDROcodone/ACETAMINOPHEN) PO PRN (18:14)
[2019-06-30 18:16] VITALS: BP 103/63
[2019-06-30 18:50] VITALS: BP 102/60
[2019-06-30 19:00] VITALS: BP 102/60
[2019-06-30] MEDS: HEPARIN SOD (PORCINE) 5000 UNITS/ML VIAL (J1644 PER 1000UNITS) SC SCH (20:52)
[2019-06-30] MEDS ORDERED: fentaNYL 25 MCG/HR PATCH TD SCH (21:00)
[2019-06-30] MEDS: NS 1,000 ML IV SCH (21:00)
[2019-06-30] MEDS: DOCUSATE SODIUM 100 MG CAP PO SCH (21:00)
[2019-06-30] MEDS: SENNA 8.6 MG TAB (SENOKOT) PO SCH (21:00)
[2019-06-30] MEDS: GABAPENTIN 300 MG CAP PO SCH (21:00)
[2019-06-30] MEDS: NYSTATIN 500,000 U/5 ML SUSP UDC SS SCH (21:00)
[2019-06-30 22:00] VITALS: BP 102/61
[2019-07-01] MEDS: NS 1,000 ML IV SCH (02:41)
[2019-07-01] MEDS ORDERED: OMEPRAZOLE 20 MG CAP PO SCH (09:00)
[2019-07-01] MEDS: HEPARIN SOD (PORCINE) 5000 UNITS/ML VIAL (J1644 PER 1000UNITS) SC SCH (09:24)
[2019-07-01] MEDS: SENNA 8.6 MG TAB (SENOKOT) PO SCH ×2 (09:24→21:00)
[2019-07-01] MEDS: DOCUSATE SODIUM 100 MG CAP PO SCH ×2 (09:25→21:00)
[2019-07-01] MEDS: NYSTATIN 500,000 U/5 ML SUSP UDC SS SCH ×2 (10:16→14:04)
--- NOTE | 2019-07-01 12:10 | IPNPDOC ---
Subjective Date Seen The patient was seen on 07/01/19. Subjective Chief Complaint/HPI Patient is comfortable in no distress. Daughter at the bedside in extensive discussion with her in person and in patient's over the phone and they both have requested home hospice evaluation before discharge General: Denies: ROS Unobtainable, Chills, Night Sweats, Fatigue, Malaise, Normal Appetite, Other Symptoms Constitutional: Denies: Chills, Fever, Malaise, Night Sweats, Weakness, Fatigue, Weight Loss, Lethargy, Other Skin: Denies: Rash, Lesions, Jaundice, Bruising, Itching, Dry, Breakdown, Nail Changes, Other Pulmonary: Denies: Dyspnea, Cough, Pleuritic Chest Pain, Other Symptoms Cardiovascular: Denies: Chest Pain, Palpitations, Orthopnea, Paroxysmal Noc. Dyspnea, Edema, Lt Headedness, Other Symptoms Gastrointestinal: Denies: Nausea, Vomiting, Abdominal Pain, Diarrhea, Constipation, Melena, Hematochezia, Other Symptoms Musculoskeletal: Denies: Neck Pain, Back Pain, Shoulder Pain, Arm Pain, Hand Pain, Leg Pain, Foot Pain, Joint Pain, Muscle Pain, Spasms, Other Symptoms Neurological: Denies: Weakness, Numbness, Incoordination, Change in speech, Confusion, Seizures, Other Symptoms Objective Physical Examination ENT Exam: Positive: Atraumatic, Mucous membr. moist/pink Neck Exam: Positive: Supple Chest Exam: Positive: Clear to auscultation, Normal air movement Heart Exam: Positive: Rate Normal, Normal S1, Normal S2 Abdomen Exam: Positive: Normal bowel sounds, Soft Extremity Exam: Positive: Normal pulses Skin Exam: Positive: Other skin issue Neuro Exam: Positive: Strength at 5/5 X4 ext, Cranial Nerves 3-12 NL Assessment /Plan Problems (1) Renal cell carcinoma of right kidney metastatic to other site Onset Date: ~ 10/2018 Status: Acute Problem Text: End-stage renal cell carcinoma, not responding to chemotherapy Patient and family decided for comfort measures only Will provide comfort care and to call hospice evaluation to arrange for home hospice arrangements Continue pain management and symptomatic care (2) ARF (acute renal failure) Status: Acute Problem Text: Acute renal failure most likely is multifactorial in nature including progression of renal cell carcinoma, progression of metastasis, consequence of her tumor obstructing the right ureter, dehydration, anemia. Continue IV fluids Nephrology consult canceled as patient signed the comfort measures only Supportive care (3) Anemia Status: Acute Problem Text: Supportive care Plan/VTE VTE Prophylaxis Ordered?: Yes VS, I&O, 24H, Fishbone Vital Signs/I&O Vital Signs Date Time Temp Pulse Resp B/P (MAP) Pulse Ox O2 Delivery O2 Flow Rate FiO2 06/30/19 22:00 97.2 91 10 102/61 (75) 93 06/30/19 21:00 Nasal Cannula 4.0 I&O- Last 24 Hours up to 6 AM 07/01/19 06:00 Intake Total 1050 ml Output Total 0 ml Balance 1050 ml Laboratory Data 24H LABS Laboratory Tests 2 06/30/19 13:10: Iron Level 18L, Total Iron Binding Capacity 203L, Transferrin % Saturation 8.9L, Ferritin 1064H BIB ESCOBAR MD Jul 01, 2019 12:09
[2019-07-01] MEDS: NORCO, ANEXSIA 5/325MG TABLET (HYDROcodone/ACETAMINOPHEN) PO PRN (16:48)
[2019-07-01] MEDS: GABAPENTIN 300 MG CAP PO SCH (21:00)
[2019-07-01] MEDS: MORPHINE 10MG/0.5ML ORAL CONCENTRATE SOLUTION U/D SL PRN ×2 (21:33→23:40)
[2019-07-02] MEDS ORDERED: LORazepam 1 MG TAB PO PRN
[2019-07-02] MEDS ORDERED: LORazepam 2 MG/ML VIAL (J2060) IV PRN (00:15)
[2019-07-02] MEDS: DOCUSATE SODIUM 100 MG CAP PO SCH ×2 (08:11→21:00)
[2019-07-02] MEDS: SENNA 8.6 MG TAB (SENOKOT) PO SCH ×2 (08:11→21:00)
[2019-07-02] MEDS: MORPHINE 10MG/0.5ML ORAL CONCENTRATE SOLUTION U/D SL PRN ×6 (10:00→23:47)
--- NOTE | 2019-07-02 10:43 | IPNPDOC ---
Subjective Date Seen The patient was seen on 07/02/19. Subjective Chief Complaint/HPI Patient is comfortable in no distress. 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 Family at the bedside Poor prognosis (2) ARF (acute renal failure) Status: Acute Problem Text: Acute renal failure most likely is multifactorial in nature including progression of renal cell carcinoma, progression of metastasis, consequence of her tumor obstructing the right ureter, dehydration, anemia. IV fluids were stopped as patient is on comfort care only Nephrology consult canceled as patient signed the comfort measures only Supportive care (3) Anemia Status: Acute Problem Text: Supportive care Plan/VTE VTE Prophylaxis Ordered?: Yes VS, I&O, 24H, Fishbone Vital Signs/I&O Vital Signs Date Time Temp Pulse Resp B/P (MAP) Pulse Ox O2 Delivery O2 Flow Rate FiO2 07/02/19 10:30 18 07/01/19 17:18 Room Air 06/30/19 22:00 97.2 91 102/61 (75) 93 06/30/19 21:00 4.0 I&O- Last 24 Hours up to 6 AM 07/02/19 06:00 Intake Total 1130 ml Output Total 0 ml Balance 1130 ml BIB ESCOBAR MD Jul 02, 2019 10:43
[2019-07-02] MEDS: GABAPENTIN 300 MG CAP PO SCH (21:00)
[2019-07-03] MEDS: MORPHINE 10MG/0.5ML ORAL CONCENTRATE SOLUTION U/D SL PRN ×4 (02:47→11:41)
[2019-07-03] MEDS: DOCUSATE SODIUM 100 MG CAP PO SCH (08:39)
[2019-07-03] MEDS: SENNA 8.6 MG TAB (SENOKOT) PO SCH (08:40)
--- NOTE | 2019-07-03 10:36 | IPNPDOC ---
Subjective Date Seen The patient was seen on 07/03/19. Subjective Chief Complaint/HPI Patient is comfortable in no distress, although family is at the bedside General: Reports: ROS Unobtainable Objective Physical Examination Chest Exam: Positive: Clear to auscultation, Normal air movement Heart Exam: Positive: Rate Normal, Normal S1, Normal S2 Assessment /Plan Problems (1) Renal cell carcinoma of right kidney metastatic to other site Onset Date: ~ 10/2018 Status: Acute Problem Text: End-stage renal cell carcinoma, not responding to chemotherapy Patient and family decided for comfort measures only Patient's family at the bedside comfortable in no distress Poor prognosis (2) ARF (acute renal failure) Status: Acute Problem Text: Acute renal failure most likely is multifactorial in nature including progression of renal cell carcinoma, progression of metastasis, consequence of her tumor obstructing the right ureter, dehydration, anemia. IV fluids were stopped as patient is on comfort care only Nephrology consult canceled as patient signed the comfort measures only Supportive care (3) Anemia Status: Acute Problem Text: Supportive care Plan/VTE VTE Prophylaxis Ordered?: Yes VS, I&O, 24H, Fishbone Vital Signs/I&O Vital Signs Date Time Temp Pulse Resp B/P (MAP) Pulse Ox O2 Delivery O2 Flow Rate FiO2 07/03/19 09:40 16 07/03/19 07:22 5.0 07/01/19 17:18 Room Air 06/30/19 22:00 97.2 91 102/61 (75 93 I&O- Last 24 Hours up to 6 AM 07/03/19 06:00 Intake Total 0 ml Balance 0 ml BIB ESCOBAR MD Jul 03, 2019 10:36
[2019-07-03] MEDS ORDERED: SCOPOLAMINE 1MG TRANSDERMAL PATCH TOP SCH (12:00)
--- NOTE | 2019-07-03 15:13 | DS.PDOC ---
Discharge Summary General Date of Admission Jun 30, 2019 at 16:46 Date of Discharge 07/03/19 Discharge Summary PROCEDURES PERFORMED DURING STAY: None. ADMITTING DIAGNOSES: 1. Acute kidney injury, metastatic renal cell carcinoma. DISCHARGE DIAGNOSES: 1. Acute kidney injury, metastatic renal cell carcinoma. COMPLICATIONS/CHIEF COMPLAINT: Renal Cell Carcinoma Of Right Kidney Metastatic To. HISTORY OF PRESENT ILLNESS: This is a 58 years old white male with past medical history of metastatic renal cell carcinoma status post chemotherapy, radiation therapy was sent from Dr. Fermin's office when he was found to have hemoglobin of 7.5, hematocrit 25.3, BUN of 80 and creatinine 3.35. Patient only comfort office complains of generalized tiredness. Denies any chest pain, chest shortness of breath, nausea, vomiting, abdominal pain, etc.. HOSPITAL COURSE: Patient was admitted with acute kidney failure secondary to renal cell carcinoma. Patient was already DNR, DNI and comfort care done by Dr. Fermin's. Patient was admitted and started on IV fluids and also had a order for 2 units of PRBC from ED. Later patient was adjustment comfort care. No blood work, no IV fluids. No laboratory work. No fingersticks as per family's wishes. Patient was made comfortable with pain management training anti-anxiety medicat ions. He at 1458 hrs. today. Family at the bedside. DISCHARGE MEDICATIONS: Please see below. ALLERGIES: Please see below. PHYSICAL EXAMINATION ON DISCHARGE: pt LABORATORY DATA: Please see below. IMAGING: Not applicable PROGNOSIS: Patient ACTIVITY: Not applicable. DIET: Not applicable DISCHARGE PLAN: DISPOSITION: . DISCHARGE INSTRUCTIONS: . ITEMS TO FOLLOWUP ON ON OUTPATIENT: DISCHARGE CONDITION: . TIME SPENT ON DISCHARGE: 20 minutes. Vital Signs/I&Os Vital Signs Date Time Temp Pulse Resp B/P (MAP) Pulse Ox O2 Delivery O2 Flow Rate FiO2 07/03/19 12:11 18 07/03/19 07:22 5.0 07/01/19 17:18 Room Air 06/30/19 22:00 97.2 91 102/61 (75) 93 I&O- Last 24 Hours up to 6 AM 07/03/19 05:59 Intake Total 0 ml Balance 0 ml Discharge Medications Scheduled Fentanyl (Fentanyl) 12 Mcg Patch.td72, 1 PATCH TD Q3RD, (Reported) PT APPLIES TO SHOULDER. TOOK PATCH OFF ON 06/30/2019 Gabapentin (Neurontin) 300 Mg Capsule, 300 MG PO QHS, (Reported) Nystatin (Nystatin Oral Susp) 100,000 Unit/1 Ml Oral.susp, 5 ML SS QID, (Reported) Omeprazole (Omeprazole) 20 Mg Tablet.dr, 20 MG PO DAILY, (Reported) Senna (Senna Lax) 8.6 Mg Tablet, 8.6 MG PO BID, (Reported) Scheduled PRN Albuterol Sulfate (Proair Hfa) 8.5 Gm Hfa.aer.ad, 2 PUFFS INH QID PRN for SHORTNESS OF BREATH, (Reported) Hydrocodone/Acetaminophen (Hydrocodone-Acetamin 10-325 mg) 1 Each Tablet, 1 TAB PO QID PRN for PAIN, (Reported) Ondansetron HCl (Ondansetron HCl) 4 Mg Tablet, 4 MG PO Q6H PRN for NAUSEA OR VOMITING, (Reported) Allergies Coded Allergies: No Known Drug Allergies (Verified Allergy, Unknown, 11/22/18) BIB ESCOBAR MD Jul 03, 2019 15:12
== END 2019-07-03 14:58 | disposition expired | DRG 687 ==
LOC: M ED 14:13 → M ED INP 16:46 → ENRESERV 17:01 → M MS5PR 18:42
PROVIDERS: ADMIT Internal Medicine; ATTEND Internal Medicine
PROC: 30233N1 Transfusion of Nonautologous Red Blood Cells into Peripheral Vein, Percutaneous Approach (ICD-10-PCS; principal; 2019-06-30)
DX: C64.1 Malignant neoplasm of right kidney, except renal pelvis (principal); N17.9 Acute kidney failure, unspecified; C79.89 Secondary malignant neoplasm of other specified sites; C79.51 Secondary malignant neoplasm of bone; N13.1 Hydronephrosis with ureteral stricture, not elsewhere classified; D63.0 Anemia in neoplastic disease; E86.0 Dehydration; Z51.5 Encounter for palliative care; Z66 Do not resuscitate; F17.200 Nicotine dependence, unspecified, uncomplicated; Z92.21 Personal history of antineoplastic chemotherapy; Z92.3 Personal history of irradiation; Z79.899 Other long term (current) drug therapy